=== PATIENT | female | born 1970 | race Caucasian/White ===

== ENCOUNTER → 2019-02-19 | Outpatient (CLI) | payer BC, SELFPAY ==
--- NOTE | 2019-02-16 | LES_PTH ---
PATIENT: SONDRA ELLIOTT LOC: [facility] U#:[id number] AGE/SX: 48/F ROOM: RE02/19/[address]: Dr. Rudy Mcmahan MD : 1970 BED: DIS: 02/19/2019 SPEC #: [id number] RECD: 02/19/19 12:11 STATUS: JHONY MARIBELL #: [id number] ISAK: 02/16/19 00:[address]: Rudy Mcmahan DEPT: SURGICAL PATHOLOGY RECD BY: Wallace Gipson ENTERED: 02/19/19 12:11 SP TYPE: Lesion OTHR DR: Dr. Dany Lane MD Tissues: Skin of upper extremity and shoulder Procedures: Surgery Specimen Level IV HEADER OPERATION: Excision skin lesion right posterior shoulder PRE-OP DIAGNOSIS: Neoplasm TISSUE SUBMITTED: Skin lesion right posterior shoulder MICROSCOPIC DIAGNOSIS Skin lesion of right posterior shoulder, biopsy: Verrucoid keratosis, inflamed. See comment. AM:jaycob 02/20/19 COMMENT The lesion is completely excised in the planes examined. Case has been reviewed in consultation with Dr. Rodriguez who concurs with the above diagnosis. IDC:POLLY MICROSCOPIC DESCRIPTION Slides are reviewed. GROSS DESCRIPTION Received in fixative is one container labeled with the patient's name and designated skin lesion right posterior shoulder. The specimen consists of a piece of garay-brown skin measuring 1.2 x 0.7 cm and up to 0.6 cm in thickness. The raised brown lesion is almost covering the whole skin surface. The specimen is inked, serially sectioned and submitted entirely in one cassette. / POLLY:jaycob 02/19/19 TC:5 CPT: 86446
== END | disposition home or self-care (01) ==
LOC: LABSPEC 10:21
PROVIDERS: Family Provider Family Medicine; PCP Family Medicine; Referring Provider Surgery; Visit Provider Surgery
DX: L82.0 Inflamed seborrheic keratosis (principal)
CPT/HCPCS: 88305

== ENCOUNTER 2022-08-02 10:33 | Day surgery (SDC) | payer BC, SELFPAY ==
[2022-08-02] MEDS: Lactated Ringers 1,000 ML 15 ML IV (10:55)
[2022-08-02 11:06] LABS: Internal QC Validated? YES +Cl - CLEAR BKGD; Pregnancy, Urine Negative Negative
[2022-08-02 11:08] VITALS: BP 146/94; PULSE 71; RESP 18; TEMP 36.3; O2SAT 100; BMI 23.0
--- NOTE | 2022-08-02 12:00 | COLBX_PTH ---
PATIENT: SONDRA ELLIOTT LOC: [facility] U#:[id number] AGE/SX: 52/F ROOM: RE08/02/[address]: Dr. Rudy Mcmahan MD : 1970 BED: DIS: 08/02/2022 SPEC #: [id number] RECD: 08/02/22 13:38 STATUS: JHONY RERei #: [id number] ISAK: 08/02/22 12:[address]: Rudy Mcmahan DEPT: SURGICAL PATHOLOGY RECD BY: Pamela Santana ENTERED: 08/02/22 13:59 SP TYPE: COLON BX OTHR DR: Dr. Dany Lane MD Tissues: Descending colon Procedures: Surgery Specimen Level IV HEADER OPERATION: Colonoscopy (MAC), biopsy PRE-OP DIAGNOSIS: Screening TISSUE SUBMITTED: Descending colon polyp biopsy MICROSCOPIC DIAGNOSIS Descending colon polyp, biopsy: Hyperplastic polyp. SJ:jaycob 08/03/2022 MICROSCOPIC DESCRIPTION Slides are reviewed. GROSS DESCRIPTION Received in fixative is one container labeled with the patient's name and designated descending polyp biopsy. The specimen consists of one irregular fragment of light garay soft tissue that measures 0.4 x 0.3 x 0.1 cm. The specimen is totally submitted in one cassette. / SJ:jaycob 08/02/2022 TC:1 CPT: 75334
--- NOTE | 2022-08-02 12:02 | HP.PCM_ITS ---
History and Physical Date of Admission: 08/02/22 HISTORY AND PHYSICAL ? Juliann C Jordy 1970 ? REFERRING PHYSICIAN: Dany Lane MD ? CHIEF COMPLAINT: Consult (Colonoscopy consult) ? HPI: The patient is a 51 year old female referred for endoscopy. Juliann notes no colon complaints. Patient denies any change in bowel habits, weight changes, blood in stools, black tarry stools or abdominal pain. Denies family history of colon issues. ? The patient notes no upper GI complaints. ? Juliann has not undergone prior endoscopy. ? Patient denies chest pain, shortness of breath or recent hospitalizations. Denies problems with sedation in the past. ? ? PAST MEDICAL HISTORY PAST MEDICAL HISTORY Diagnosis Date ? ASCUS with positive high risk HPV cervical 10/24/2020 ? cervical arthritis 2008 ? cervical disc/bulging/arthritis ? Cervicalgia 11/10/2007 ? COVID-19 virus infection 06/14/2020 ? 06/13/2020 ? Degeneration of cervical intervertebral disc 11/10/2007 ? Discotomy at C3-C4 ? Displacement 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 06/06/2008 ? Enlarged uterus 01/10/2014 ? 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 Uses Klonopin as needed. ? Heavy menstrual bleeding 01/10/2014 ? Irregular menstrual cycle 06/11/2005 ? PCB (post coital bleeding) 01/10/2014 ? ? PAST SURGICAL HISTORY PAST SURGICAL HISTORY Procedure Laterality Date ? PAST SURGICAL HISTORY OF ? 08/16/2008 ? removal of cervical disc with bone graft, C3-C4 ? STRESS TEST ? 08/01/2017 ? stress echo: WNL ? TONSILLECTOMY PRIMARY/SECONDARY <AGE 12 ? ? ? Tonsillectomy ? ? ? CURRENT MEDICATIONS Current Outpatient Medications Medication Sig ? fexofenadine HCl (SONIA ALLERGY ORAL) Take by mouth once daily. ? clonazePAM (KLONOPIN) 0.5 mg tablet Take 1 tablet by mouth twice daily as needed for anxiety. For flying. ? APPLE CIDER VINEGAR ORAL Take by mouth. ? MULTIVITAMIN ORAL Multivitamin preparation Multivitamin [Multivitamins] 1 TAB PO DAILY February 19, 2019 Active 02-19-2019 [facility] ([id number]) ? cholecalciferol, vitamin D3, (VITAMIN D3 ORAL) Take by mouth. (Patient not taking: Reported on 05/28/2022) ? loratadine (CLARITIN) 10 mg tablet Take 10 mg by mouth once daily. ? No current facility-administered medications for this visit. ? ? ALLERGIES: Patient has no known allergies. ? PERSONAL HISTORY: SOCIAL HISTORY Social History ? Tobacco Use ? Smoking status: Never ? Smokeless tobacco: Never Vaping Use ? Vaping Use: Never used Substance Use Topics ? Alcohol use: Yes ? ? Alcohol/week: 17.5 - 25.0 standard drinks ? ? Types: 7 - 10 Glasses of Wine (5oz) per week ? ? Comment: socially ? Drug use: No ? ? FAMILY HISTORY: FAMILY HISTORY FAMILY HISTORY Problem Relation Age of Onset ? None Mother ? ? Coronary Artery Disease Father 52 ? Hypertension Father ? ? Hypertension Brother ? ? Cerebral Embolism Maternal Grandmother ? ? Diabetes Maternal Grandfather ? ? Coronary Artery Disease Paternal Grandfather ? ? 40's ? Alzheimer's Disease No Family History ? ? Colon Cancer No Family History ? ? Prostate Cancer No Family History ? ? Breast Cancer No Family History ? ? Ovarian cancer No Family History ? ? Uterine Cancer No Family History ? ? Hyperlipidemia No Family History ? ? Kidney Disease No Family History ? ? Seizures No Family History ? ? Stroke No Family History ? ? Thyroid No Family History ? ? ? REVIEW OF SYMPTOMS: The review of systems data was entered by the nurse and reviewed by me ? Nursing Notes: Becca Bernal RN 05/28/2022 1:24 PM Signed REVIEW OF SYSTEMS: General: The patient denies fatigue, denies weight loss, denies weight gain, denies feeling hot, and denies feelings of cold. Eyes: The patient denies glaucoma, denies eye injury/surgery, does not wear glasses or contacts. Ear/Nose/Throat: The patient denies allergies, denies hayfever, denies ear infections, and denies bloody noses. Cardiovascular: The patient denies chest pain, denies heart disease, denies high blood pressure,denies cardiac stent, denies prior heart attack, denies irregular heart beat, denies high cholesterol, denies poor circulation, denies heart failure, other cardiac issues, denies claudication, denies cold feet, denies peripheral arterial stent. Respiratory: The patient denies tuberculosis, denies pneumonia, denies frequent cough, denies pulmonary embolism, denies shortness of breath, and denies coughing up blood. Gastrointestinal: The patient denies difficulty swallowing, denies acid reflux, denies ulcers, denies vomiting, denies jaundice/hepatitis, denies gallbladder problems, denies black or tarry stools, denies hemorrhoids, denies bleeding from rectum, denies diverticulitis, denies constipation, denies diarrhea, denies loss of stool control, and denies hernias. Kidney/Bladder: The patient denies kidney stones, denies urine infections, and denies bloody urine. Skin: The patient denies a history of skin cancer, denies b leeding/changing moles, and denies a history of skin rash. Neurologic: The patient denies a history of epilepsy/convulsions, denies headaches, denies head/spinal injuries, and denies stroke/TIA. Psychiatric: The patient denies psychiatric medications, denies depression, and denies voices, denies substance abuse. Endocrine: The patient denies thyroid disorders, denies diabetes, and denies hormonal problems. Hematologic: The patient denies a history of bruising, denies bleeding, and denies anemia, denies blood clots. Infections: The patient denies a history of measles and mumps, denies rheumatic fever, and denies sexually transmitted diseases. Musculoskeletal: The patient denies back pain/injury, denies back problems, denies sciatica, denies knee/foot trouble, NOTES arthritis, or denies gout. ? ? When was patient's last Mammogram screening? 11/20/2021 ? Last Colonoscopy: None ? Becca Bernal RN I have confirmed and edited as necessary, the PFSH and ROS obtained by others. Brunilda Morales PA-C ? PHYSICAL EXAMINATION: ? General: The patient is 51 year old female, well nourished, well hydrated in no acute distress. The patient is oriented to time, place, and person. ? VITALS: Blood pressure 124/80, pulse 100, temperature 36.2 ?C (97.2 ?F), height 160 cm (5' 3), weight 61.4 kg (135 lb 6.4 oz), last menstrual period 09/11/2020, SpO2 99 %. Body mass index is 23.99 kg/m?. ? HEENT: Normal cephalic, ataumatic, pupils are equally round, sclera are anicteric, mucous membranes are moist, oropharynx is clear. Neck has no masses, asymmetry or lymphadenopathy. ? Respiratory: Clear to auscultation and percussion. Normal respiratory excursion and pattern. ? Cardiac: Examination is regular rate and rhythm. Normal S1/S2 ? Abdominal exam: Soft, nontender, with no palpable masses. No hepatosplenomegaly. No palpable hernias. ? Extremities: no clubbing, cyanosis or edema. No adenopathy. ? LABORATORY VALUES: As Noted ? RADIOLOGIC STUDIES: As Noted ? ? Assessment IMPRESSION: encounter for screening colonoscopy ? PLAN: I have reviewed my findings with the surgeon. Will plan for lower endoscopy. We discussed the risks and benefits of the planned endoscopy. I have informed the patient that complications can occur including failure to complete the endoscopy and perforation. The patient had the opportunity to ask questions concerning the planned endoscopy. My staff has also explained the procedure to the patient in understandable terms and has given the patient printed material concerning the procedure. The patient freely consents to surgery. ? The patient was offered a surgery/procedure at a [facility]. I have counseled the patient regarding the risk of exposure to and/or potential harm posed by the COVID-19 virus with having a surgery/procedure at this time versus the risk of? delaying the surgery/procedure. It is not possible to know either the risk of delaying the surgery or procedure or chance of getting an infection with perfect accuracy, but a joint decision was made between the patient and myself?to proceed at this time with endoscopy. ? ? I plan to use Golytely bowel preparation ? We will plan for Monitored Anesthetic Care. ? ? ? Diagnoses: (Z12.11) Encounter for screening for malignant neoplasm of colon (primary encounter diagnosis) ? Consultation requested by Dr. Lane for an opinion regarding screening colonoscopy. My final recommendations will be communicated back to the requesting physician by way of shared Medical record or letter to requesting physician via US mail. ? Brunilda Morales PA-C I have examined the patient and the H&P has been reviewed. There are no clinical changes since date of exam.
--- NOTE | 2022-08-02 12:30 | OP.CCLET_ITS ---
08/02/[address] MD Re : Colonoscopy procedure for Juliann Spence Dear Dr. Lane This procedure was performed on Tuesday, August 02, 2022. My impressions and recommendations are as follows: Impressions : - Preparation of the colon was fair. - One small polyp in the descending colon, removed with a jumbo cold forceps. Resected and retrieved. - The examination was otherwise normal on direct and retroflexion views. Recommendations : - Patient has a contact number available for emergencies. The signs and symptoms of potential delayed complications were discussed with the patient. Return to normal activities tomorrow. Written discharge instructions were provided to the patient. - Resume previous diet. - Continue present medications. - Await pathology results. - Repeat colonoscopy in 5 years for surveillance. This is secondary to the polyp as well as the poor bowel prep. - Return to physician retail event and sales assistant in 1 week. My findings are described in the full procedure note, which is enclosed. If I can be of further assistance, please feel free to contact me at Doctor phone number(s): , Work: . Sincerely, MD Rudy Lima MD 08/02/2022 12:30:04 PM This report has been signed electronically.
--- NOTE | 2022-08-02 12:30 | OP.COLON_ITS ---
Patient Name: Juliann Spence Procedure Date: 08/02/2022 12:02 PM Date of : 1970 Age: 52 Procedure: Colonoscopy Indications: Screening for colorectal malignant neoplasm Providers: Rudy Mcmahan MD Medicines: See the Anesthesia note for documentation of the administered medications Patient Profile: This is a 52 year old female. Refer to note in patient chart for documentation of history and physical. Last Colonoscopy: none. The patient's first colonoscopy is today. Complications: No immediate complications. Estimated blood loss: Minimal. Procedure: Pre-Anesthesia Assessment: - Prior to the procedure, a History and Physical was performed, and patient medications and allergies were reviewed. The patient's tolerance of previous anesthesia was also reviewed. The risks and benefits of the procedure and the sedation options and risks were discussed with the patient. All questions were answered, and informed consent was obtained. Prior Anticoagulants: The patient has taken no previous anticoagulant or antiplatelet agents. ASA Grade Assessment: II - A patient with mild systemic disease. After reviewing the risks and benefits, the patient was deemed in satisfactory condition to undergo the procedure. After I obtained informed consent, the scope was passed under direct vision. Throughout the procedure, the patient's blood pressure, pulse, and oxygen saturations were monitored continuously. The pediatric colonoscope was introduced through the anus and advanced to the cecum, identified by appendiceal orifice and ileocecal valve. The colonoscopy was performed without difficulty. The patient tolerated the procedure well. The quality of the bowel preparation was fair. Scope In: 12:12:01 PM Scope Withdrawal Time 0 hours 9 minutes 51 seconds Scope Out: 12:25:36 PM Total Procedure Duration Time 0 hours 13 minutes 35 seconds Findings: The perianal and digital rectal examinations were normal. A small polyp was found in the descending colon. The polyp was sessile. The polyp was removed with a jumbo cold forceps. Resection and retrieval were complete. The exam was otherwise without abnormality on direct and retroflexion views. Impression: - Preparation of the colon was fair. - One small polyp in the descending colon, removed with a jumbo cold forceps. Resected and retrieved. - The examination was otherwise normal on direct and retroflexion views. Recommendation: - Patient has a contact number available for emergencies. The signs and symptoms of potential delayed complications were discussed with the patient. Return to normal activities tomorrow. Written discharge instructions were provided to the patient. - Resume previous diet. - Continue present medications. - Await pathology results. - Repeat colonoscopy in 5 years for surveillance. This is secondary to the polyp as well as the poor bowel prep. - Return to physician communications assistant in 1 week. Procedure Code(s): --- Professional --- 21492, Colonoscopy, flexible; with biopsy, single or multiple Diagnosis Code(s): --- Professional --- Z12.11, Encounter for screening for malignant neoplasm of colon D12.4, Benign neoplasm of descending colon CPT copyright 2017 [employer]. All rights reserved. The codes documented in this report are preliminary and upon mill stenciler review may be revised to meet current compliance requirements. MD Rudy Lima MD 08/02/2022 12:30:04 PM This report has been signed electronically. Number of Addenda: 0 Note Initiated On: 08/02/2022 12:02 PM
[2022-08-02 12:33] VITALS: BP 105/75; BP 146/94; PULSE 67; RESP 14; TEMP 37.1; O2SAT 97
[2022-08-02 12:35] VITALS: BP 104/78; BP 146/94; PULSE 64; RESP 14; O2SAT 95
[2022-08-02 12:40] VITALS: BP 111/75; BP 146/94; PULSE 62; RESP 14; TEMP 36.9; O2SAT 96
[2022-08-02 12:58] VITALS: BP 146/94
== END 2022-08-02 13:30 | disposition home or self-care (01) ==
LOC: EN 10:36 → AC 10:39
PROVIDERS: Anesthesiology; PCP Family Medicine; Referring Provider Surgery; Visit Provider Surgery
PROC: 0DJD8ZZ Inspection of Lower Intestinal Tract, Via Natural or Artificial Opening Endoscopic (ICD-10-PCS; CPT 45378; principal; 2022-08-02 11:55)
DX: Z12.11 Encounter for screening for malignant neoplasm of colon (principal); Z86.16 Personal history of COVID-19; Z80.3 Family history of malignant neoplasm of breast; Z80.42 Family history of malignant neoplasm of prostate; Z80.0 Family history of malignant neoplasm of digestive organs; D12.4 Benign neoplasm of descending colon
CPT/HCPCS: 45380; 81025; 88305; J7120; J2405

== ENCOUNTER 2025-03-01 07:37 | Outpatient (CLI) | payer BC, SELFPAY ==
--- NOTE | 2025-03-01 07:39 | CT_ITS ---
PROCEDURE: LIMITED CHEST CT CARDIAC ONLY 03/01/2025 REASON FOR EXAM: CAD SCREENING Family history of coronary artery disease. Elevated cholesterol. TECHNIQUE: LIMITED CHEST CT CARDIAC ONLY CONTRAST: None One or more dose reduction techniques were used (e.g., Automated exposure control, adjustment of the mA and/or kV according to patient size, use of iterative reconstruction technique). RADIATION DOSE SUMMARY: CTDlvol: 12.19 mGy DLP: 219.42 mGycm COMPARISON: None FINDINGS: Mild degree of atherosclerotic plaque formation of the aortic arch. Small benign-appearing mediastinal lymph nodes. The heart is nonenlarged. No significant coronary artery calcification is seen. The lungs are clear. CT/Limited Chest CT Cardiac Only IMPRESSION: No significant coronary artery calcification is seen. Reading Location: [place] [id number]
--- OUTSIDE RECORDS SUMMARY | 2025-03-01 07:41 | XMS RPT_ITS | CCD ---
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 Role Phone Dany Berman MD Primary Care Provider [phone] Unavailable Primary Care Provider Unavaillewis amor Unavailable Primary Care Provider UnavailDany Pierre MD Primary Care Provider Beatrice Wright APRN.CNP Unavailable Teri Newman PA-C Unavailable Dany Berman Primary Care Unavailable Teri Morrison Referring Unavailable Teri Morrison Attending Unavailable DANY BERMAN Referring Unavailable DANY BERMAN Primary Care Unavailable DANY BERMAN Primary Care Unavailable TERI NEWMAN Referring Unavailable DANY BERMAN Attending Unavailable DANY BERMAN Primary Care Unavailable TERI NEWMAN Attending Unavailable DANY BERMAN Primary Care Unavailable TERI NEWMAN Attending Unavailable DANY BERMAN Primary Care Unavailable Medications Current Medications Medication Drug Class(es) Dates Sig (Normalized) Sig (Original) amoxicillin 875 mg / clavulanate 125 mg oral tablet (1 source) Penicillin-class Antibacterial Start: 10-08-2024 End: 10-13-2024 take 1 tablet by mouth twice daily amoxicillin-clav ulanate potassium (AUGMENTIN) 875-125 mg per tablet Take 1 tablet by mouth two times a day for 5 days. Patient should start on October 08, 2024. 10 tablet 10/08/2024 10/13/2024 Active apple cider vinegar 600 mg oral capsule (20 sources) Start: 07-28-2022 take 600 mg by mouth once daily Apple Cider Vinegar Active 600 MG PO DAILY July 28, 2022 12:00am APPLE CIDER VINE GAR ORAL Take by mouth. Active APPLE CIDER VINE GAR ORAL Take by mouth. 0 Active Comment on above: Take by mouth. cholecalciferol 0.025 mg oral capsule (6 sources) Vitamin D Start: take 2 capsules by mouth once daily Cholecalciferol, Vitamin D3, (VITAMIN D) 25 mcg (1,000 unit) cap Take 2 capsules by mouth once daily. 12/17/2024 Active clonazePAM 0.5 mg oral tablet (20 sources) Benzodiazepine Start: 021 End: take 1 tablet by mouth every twelve hours as needed for anxiety and anxiety clonazePAM (KLONOPIN) 0.5 mg tablet Indications: Anxiety Take 1 tablet by mouth two times a day as needed for anxiety. For flying. 4 tablet 01/10/2024 06/22/2025 Active Comment on above: Take 1 tablet by elysia th twice daily as needed for Anxiety. For flying. Take 1 tablet by elysia th two times a day as needed for anxiety. For flying. dextromethorphan hydrobromide 2 mg/ml / guaiFENesin 40 mg/ml oral suspension (3 sources) Uncompetitive T-fruude-C-aspartate Receptor Antagonist, Sigma-1 Agonist Start: 020 End: 022 take 5 mL by mouth every four hours as needed Dextromethorphan-gu aiFENesin (ROBITUSSIN DM) 10-200 mg/5 mL liqd Take 5 mL by mouth every 4 hours as needed. 120 mL 0 06/13/2020 12/11/2021 Discontinued Comment on above: Take 5 mL by mouth e very 4 hours as needed. fexofenadine (19 sources) Histamine-1 Receptor Antagonist fexofenadine HCl (SONIA ALLERGY ORAL) Take by mouth once daily. Active fexofenadine HCl (SONIA ALLERGY ORAL) Take by mouth once daily. 0 Active Comment on above: Take by mouth once d aily. fluticasone propionate 0.05 mg/actuat metered dose nasal spray (3 sources) Corticosteroid Start : 06-13 End: 12-11 take 2 spray(s) by mouth once daily fluticasone (FLONASE) 50 mcg/actuation nasal spray Use 2 Sprays in each nostril once daily. Rinse mouth after use. 1 Bottle 0 06/13/2020 12/11/2021 Discontinued Comment on above: Use 2 Sprays in each nostril once daily. Rinse mouth after use. loratadine 10 mg oral tablet (20 sources) Start : 07-28 take 1 tablet by mouth once daily Loratadine (Claritin) 10 mg Tablet Active 10 MG PO DAILY July 28, 2022 12:00am Comment on above: Take 10 mg by mouth once daily. losartan potassium 25 mg oral tablet (6 sources) Angiotensin 2 Receptor Shawn Start : 01-08 End: 02-05 take 1 tablet by mouth once daily losartan (COZAAR) 25 mg tablet Take 1 tablet by mouth once daily. 90 tablet 3 02/05/2025 Active medroxyPROGESTERone acetate 10 mg oral tablet (3 sources) Progestin Start : 12-25 End: 12-11 take 1 tablet by mouth once daily medroxyPROGESTERone (PROVERA) 10 mg tablet Take 1 tablet by mouth once daily. 10 tablet 1 12/26/2019 12/11/2021 Discontinued Comment on above: Take 1 tablet by elysia th once daily. Multivitamin (Multiple Vitamins) tablet (2 sources) Start : 02-19 take 1 tablet by mouth once daily Multivitamin (Multiple Vitamins) tablet Active 1 TABLET PO DAILY February 18, 2019 11:00pm MULTIVITAMIN ORAL (20 sources) Start : 02-19 MULTIVITAMIN ORAL Multivitamin preparation Multivitamin [Multivitamins] 1 TAB PO DAILY February 19, 2019 Active 02-19-2019 [facility] ([id number]) 02/19/2019 Active Start: 02-19-2019 MULTIVITAMIN O RAL Multivitamin preparation Multivitamin [Multivitamins] 1 TAB PO DAILY February 19, 2019 Active 02-19-2019 [facility] ([id number]) 0 02/19/2019 Active Comment on above: Multivitamin prepara tion Multivitamin [Multivitamins] 1 TAB PO DAILY February 19, 2019 Active 02-19-2019 [facility] ([id number]) tranexamic acid 650 mg oral tablet (2 sources) Antifibrinolytic Agent Start: 020 End: take 2 tablets by mouth every eight hours as needed tranexamic acid (LYSTEDA) 650 mg tablet Take 2 tablets by mouth three times daily as needed (heavy menstrual bleeding) for up to 5 days. 30 tablet 1 10/16/2019 12/11/2021 Discontinued Comment on above: Take 2 tablets by mo uth three times daily as needed (heavy menstrual bleeding) for up to 5 days. traZODone hydrochloride 50 mg oral tablet (3 sources) Serotonin Reuptake Inhibitor Start: 019 End: take 1 tablet by mouth once daily at bedtime traZODone (DESYREL) 50 mg tablet Take 1 tablet by mouth daily at bedtime. 30 tablet 2 06/21/2019 12/11/2021 Discontinued Comment on above: Take 1 tablet by elysia th daily at bedtime. valACYclovir 1000 mg oral tablet (2 sources) Herpesvirus Nucleoside Analog DNA Polymerase Inhibitor, Herpes Simplex Virus Nucleoside Analog DNA Polymerase Inhibitor, Herpes Zoster Virus Nucleoside Analog DNA Polymerase Inhibitor Start: 025 End: 025 take 1 tablet by mouth once daily valACYclovir (VALTREX) 1 gram tablet Indications: Herpes simplex vulvovaginitis Take 1 tablet by mouth once daily for 5 days. 10 tablet 2 07/23/2024 07/28/2024 Active Start: 07-27-2022 End: 08-01-2022 take 1 tablet by mouth once daily valACYclovir (VALTREX) 1 gram Indications: Herpes simplex vulvovaginitis Take 1 tablet by mouth once daily for 5 days. 10 tablet 2 07/27/2022 08/01/2022 Active Comment on above: Take 1 tablet by elysia th once daily for 5 days. Completed/Discontinued Medications Medication Drug Class(es) Dates Sig (Normalized) Sig (Original) cholecalciferol, vitamin D3, (VITAMIN D3 ORAL) (19 sources) End: 12-17-2024 cholecalciferol, vitamin D3, (VITAMIN D3 ORAL) Take by mouth. 12/17/2024 Discontinued (Changing Therapy/Dosage Form) cholecalciferol, vitamin D3, (VITAMIN D3 ORAL) Take by mouth. Active cholecalciferol, vitamin D3, (VITAMIN D3 ORAL) Take by mouth. 0 Active Comment on above: Take by mouth. Problems Active Problems Problem Classification Problem Date Documented Date Episodic/Chronic Anxiety disorders (20 sources) Fear of flying; Translations: [Fear of flying] Onset: 04-05-2017 04-05-2017 Chronic Cardiac dysrhythmias (2 sources) Sinus bradycardia; Translations: [Bradycardia, unspecified] 2018 Episodic Disorders of lipid metabolism (1 source) Mixed hyperlipidemia; Translations: [Mixed hyperlipidemia] 02-07-2025 Chronic Essential hypertension (9 sources) Essential hypertension; Translations: [Essential (primary) hypertension] Onset: 01-08-2025 01-08-2025 Chronic Immunizations and screening for infectious disease (2 sources) Vaccination needed; Translations: [Encounter for immunization] Onset: 12-17-2024 12-17-2024 Episodic Menstrual disorders (20 sources) Irregular periods; Translations: [Irregular menstruation, unspecified] Onset: 06-11-2005 04-05-2017 Chronic Nonmalignant breast conditions (1 source) Breast finding ; Translations: [Dense breast tissue] 12-23-2023 Episodic Other circulatory disease (2 sources) Elevated blood-pressure reading without diagnosis of hypertension; Translations: [Elevated blood-pressure reading, without diagnosis of hypertension] 10-06-2024 Episodic Other circulatory disease (1 source) Elevated blood-pressure reading, without diagnosis of hypertension; Translations: [Elevated BP without diagnosis of hypertension] Onset: 12-17-2024 Episodic Other female genital disorders (20 sources) Postcoital bleeding; Translations: [Postcoital and contact bleeding] Onset: 01-10-2014 04-05-2017 Chronic Other screening for suspected conditions (not mental disorders or infectious disease) (20 sources) Patient encounter status; Translations: [Encounter for screening mammogram for malignant neoplasm of breast] Onset: 04-05-2017 Episodic Other upper respiratory disease (1 source) Congestion of nasal sinus; Translations: [Nasal congestion] 10-06-2024 Episodic Other upper respiratory infections (1 source) Acute upper respiratory infection; Translations: [Acute upper respiratory infection, unspecified] 10-06-2024 Episodic Residual codes; unclassified (2 sources) H/O Spinal surgery; Translations: [Other specified postprocedural states] 07-28-2022 Episodic Residual codes; unclassified (1 source) Family history of ischemic heart disease; Translations: [Family history of ischemic heart disease and other diseases of the circulatory system] 02-05-2025 Episodic Residual codes; unclassified (1 source) Family history of ischemic heart disease and other diseases of the circulatory system; Translations: [Family history of ischemic heart disease] Onset: 02-05-2025 Episodic Screening and history of mental health and substance abuse codes (2 sources) Encounter for screening for depression; Translations: [Encounter for screening examination for other mental health and behavioral disorders] Onset: 12-17-2024 Episodic Spondylosis; intervertebral disc disorders; other back problems (20 sources) Degeneration of cervical intervertebral disc; Translations: [Other cervical disc degeneration, unspecified cervical region] Onset: 11-10-2007 04-05-2017 Chronic Viral infection (2 sources) Herpetic vulvovaginitis; 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] Chronic Past or Other Problems Problem Classification Problem Date Documented Da te Episodic/Chronic Acute bronchitis (20 sources) Acute bronchitis; Translations: [Acute bronchitis, unspecified] Onset: 01-24-2006 Resolved: 12-17-2024 01-24-2006 Episodic Other complications of (13 sources) Multigravida of advanced maternal age; Translations: [Supervision of elderly multigravida, unspecified trimester] Onset: 11-09-2005 Resolved: 06-05-2012 06-05-2012 Episodic Other female genital disorders (20 sources) Enlarged uterus; Translations: [Hypertrophy of uterus] Onset: 01-10-2014 04-05-2017 Episodic Other infections; including parasitic (6 sources) Personal history of other infectious and parasitic diseases; Translations: [History of COVID-19] Onset: 06-14-2020 Resolved: 12-17-2024 12-17-2024 Episodic Other and delivery including normal (13 sources) Normal ; Translations: [Encounter for supervision of other normal , unspecified trimester] Onset: 09-09-2005 Resolved: 06-05-2012 06-05-2012 Episodic Residual codes; unclassified (20 sources) FH: premature coronary heart disease; Translations: [Family history of ischemic heart disease and other diseases of the circulatory system] Onset: 04-05-2017 04-05-2017 Episodic Spondylosis; intervertebral disc disorders; other back problems (20 sources) Neck pain; Translations: [Cervicalgia] Onset: 11-10-2007 04-05-2017 Episodic Unclassified (1 source) Patient encounter status 02-13-2025 Viral infection (18 sources) Disease caused by 2019-nCoV; Translations: [COVID-19] Onset: 06-14-2020 06-14-2020 Episodic Results Test Name Value Interpretation Reference [facility] JULIANN ELLIOTT ([id number]) 1970 F Date Time Provider Department 02/26/25 DANY BERMAN [facility] During your visit today, we recorded the following information about you: Ernesto Munoz RN 02/26/2025 9:32 AM Signed Natali with [facility] calls to ask if pre certification has been submitted for the Calcium Scoring Test. Order is listed as self-pay. Notified Natali. Patient will have a cost of $50. Call placed to patient to notify and patient agreeable to the cost. Natali to note chart. Ernesto Munoz RN Allergies As of Date: 02/26/2025 (No Known Allergies) Date Reviewed: 02/05/2025 Reviewed by: Ailyn Machuca, AURA - Fully Assessed Reason for Visit: Orders [681] Prescriptions as of 02/26/2025 - losartan (COZAAR) 25 mg tablet Take 1 tablet by mouth once daily. - Cholecalciferol, Vitamin D3, (VITAMIN D) 25 mcg (1,000 unit) cap Take 2 capsules by mouth once daily. - clonazePAM (KLONOPIN) 0.5 mg tablet Take 1 tablet by mouth two times a day as needed for anxiety. For flying. - fexofenadine HCl (SONIA ALLERGY ORAL) Take by mouth once daily. - APPLE CIDER VINEGAR ORAL Take by mouth. - loratadine (CLARITIN) 10 mg tablet Take 10 mg by mouth once daily. - MULTIVITAMIN ORAL Multivitamin preparation Multivitamin [Multivitamins] 1 TAB PO DAILY February 19, 2019 Active 02-19-2019 [facility] ([id number]) Meds Comments as of 06/27/2009: All medications reviewed today/June 27, 2009 Letty Shultz Rn Problem List As Of Date 02/26/2025 Noted Resolved Routine gynecological examination [Z01.419] 06/11/2005 06/05/2012 Irregular menstrual cycle [N92.6] 06/11/2005 Supervision of other normal [Z34.80] 09/09/2005 06/05/2012 Elderly multigravida with antepartum condition *11/09/2005 06/05/2012 Acute bronchitis [J20.9] 01/24/2006 12/17/2024 Cervicalgia [M54.2] 11/10/2007 Degeneration of cervical intervertebral disc [M*11/10/2007 Displacement of cervical intervertebral disc wi*06/06/2008 Heavy menstrual bleeding [N92.0] 01/10/2014 PCB (post coital bleeding) [N93.0] 01/10/2014 Enlarged uterus [N85.2] 01/10/2014 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] 04/05/2017 Encounter for gynecological examination without*04/05/2017 Well adult exam [Z00.00] 04/05/2017 Family history of early CAD [Z82.49] 04/05/2017 Encounter for screening for diabetes mellitus [*04/05/2017 History of COVID-19 [Z86.16] 06/14/2020 12/17/2024 Encounter for lipid screening for cardiovascula* 025 Hypertension, essential [I10] 01/08/2025 Encounter Status:Closed by ERNESTO MUNOZ on 02/26/25 Normal [facility] DIEGO SCREENING W TOMOon 02-18 DIEGO SCREENING W RANDY * * *Final Report* * * DATE OF EXAM: Feb 18 2025 3:23PM WR [id number] - DIEGO SCREENING W RANDY / PROCEDURE REASON: Screening mammogram for breast cancer * * * * Physician Interpretation * * * * RESULT: [place] [id number] #[id number] - DIEGO SCREENING W RANDY HISTORY: 54 year-old patient presents for screening. Patient is asymptomatic in both breasts. Patient states no personal history of breast cancer. COMPARISON STUDIES: The present examination has been compared to prior imaging studies dated 06/06/2019 (mammogram), 06/26/2020 (mammogram), 11/20/2021 (mammogram), 01/10/2023 (mammogram) and 01/31/2024 (mammogram). MAMMOGRAM TECHNIQUE: The study was acquired using full field digital technology and interpreted from soft copy. Digital Breast Tomosynthesis (DBT) images were obtained and used to assist in the interpretation of this examination. MAMMOGRAM FINDINGS: There are scattered areas of fibroglandular density. No suspicious masses, calcifications or other abnormalities are seen in either breast. There are no significant interval changes. IMPRESSION: There is no mammographic evidence of malignancy in either breast. Routine screening mammogram is recommended. Annual mammogram will be due in 1 year. BI-RADS Category 1: Negative RISK: Based on the Tyrer-Cuzick (TC) risk assessment model, this patient has a 4.7% lifetime risk of developing breast cancer, meaning they are at average risk for developing breast cancer. However, this is only an estimate based on available history provided on the patient's questionnaire. We encourage all patients to talk with their providers about these results, further recommendations for managing breast health, and appropriate supplemental screening options if the patient has dense breast tissue. Interpreting Radiologist: Bambi Gutierrez M.D. Electronically signed on: 02/19/2025 Clinical Trials Systems Administrator: WARNER Transcribe Date/Time: Feb 18 2025 2:57P Dictated by: BAMBI GUTIERREZ MD This examination was interpreted and the report reviewed and electronically signed by: BAMBI GUTIERREZ MD on Feb 19 2025 8:33AM EST [id number] Normal [facility] CNPCande 02-12-2025 CNPN Telephone (4CQ) JULIANN ELLIOTT ([id number]) 1970 F Date Time Provider Department 02/12/25 DANY BERMAN 4CQ During your visit today, we recorded the following information about you: Yolanda Lylen 02/12/2025 4:32 PM Signed Needs mammo order Ailyn Machuca LPN 02/13/2025 9:17 AM Signed Per below pt is needing mammogram order. Order pended please review. AURA Croft Rayanne, PA-C 02/13/2025 12:28 PM Signed Order placed. Allergies As of Date: 02/12/2025 (No Known Allergies) Date Reviewed: 02/05/2025 Reviewed by: Ailyn Machuca LPN - Fully Assessed Reason for Visit: Orders [681] Primary Visit Diagnosis:Screening mammogram for breast cancer [Z12.31] Order(s):DIEGO SCREENING W RANDY [[id number]] Order #: [id number] FUTURE Prescriptions as of 02/13/2025 - losartan (COZAAR) 25 mg tablet Take 1 tablet by mouth once daily. - Cholecalciferol, Vitamin D3, (VITAMIN D) 25 mcg (1,000 unit) cap Take 2 capsules by mouth once daily. - clonazePAM (KLONOPIN) 0.5 mg tablet Take 1 tablet by mouth two times a day as needed for anxiety. For flying. - fexofenadine HCl (SONIA ALLERGY ORAL) Take by mouth once daily. - APPLE CIDER VINEGAR ORAL Take by mouth. - loratadine (CLARITIN) 10 mg tablet Take 10 mg by mouth once daily. - MULTIVITAMIN ORAL Multivitamin preparation Multivitamin [Multivitamins] 1 TAB PO DAILY February 19, 2019 Active 02-19-2019 [facility] ([id number]) Meds Comments as of 06/27/2009: All medications reviewed today/June 27, 2009 Letty Shultz Rn Problem List As Of Date 02/12/2025 Noted Resolved Routine gynecological examination [Z01.419] 06/11/2005 06/05/2012 Irregular menstrual cycle [N92.6] 06/11/2005 Supervision of other normal [Z34.80] 09/09/2005 06/05/2012 Elderly multigravida with antepartum condition *11/09/2005 06/05/2012 Acute bronchitis [J20.9] 01/24/2006 12/17/2024 Cervicalgia [M54.2] 11/10/2007 Degeneration of cervical intervertebral disc [M*11/10/2007 Displacement of cervical intervertebral disc wi*06/06/2008 Heavy menstrual bleeding [N92.0] 01/10/2014 PCB (post coital bleeding) [N93.0] 01/10/2014 Enlarged uterus [N85.2] 01/10/2014 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] 04/05/2017 Encounter for gynecological examination without*04/05/2017 Well adult exam [Z00.00] 04/05/2017 Family history of early CAD [Z82.49] 04/05/2017 Encounter for screening for diabetes mellitus [*04/05/2017 History of COVID-19 [Z86.16] 06/14/2020 12/17/2024 Encounter for lipid screening for cardiovascula* 025 Hypertension, essential [I10] 01/08/2025 Encounter Status:Closed by TERI CANTRELL on 02/13/25 [facility] CNOVon 02-05-2025 CNOV Office Visit (FAMPWS ) JULIANN ELLIOTT ([id number]) 1970 F Date Time Provider Department 02/05/25 7:40 AM TERI NEWMAN FAMPWS During your visit today, we recorded the following information about you: Temperature Pulse Respiration Blood pressure 97.8 degrees 68/minute 16/minute 127/78 Weight 64 kg Teri Newman PA-C 02/05/2025 8:17 AM Signed Chief Complaint Patient presents with: Follow Up: Blood pressure HPI Juliann Elliott is a 54 year old female who presents here today for recheck. Hypertension: - Home blood pressure readings show variability, with higher readings in the morning (e.g., 146/xx mmHg) and lower readings in the afternoon (e.g., 120/83 mmHg). - Attributes higher morning readings to stress from a long drive to work. - Currently taking losartan; reports good tolerance without adverse effects. - Recently received a notice to refill losartan prescription. Hyperlipidemia: - Scheduled for a lipid panel as ordered by Dr. Berman. - Inquires about the potential need for medication if cholesterol levels are elevated. - Family history of heart disease; father of a heart attack at age 52. - Brother, a GP in [place], recommended a heart scan (calcium score) to assess for plaque buildup. Past medical history, appointments, medications, allergies reviewed. 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 Heavy menstrual bleeding 01/10/2014 History of COVID-19 06/14/2020 06/13/2020 Irregular menstrual cycle 06/11/2005 PCB (post coital bleeding) 01/10/2014 Previous Surgical History PAST SURGICAL HISTORY Procedure Laterality Date PAST SURGICAL HISTORY OF 08/16/2008 removal of cervical disc with bone graft, C3-C4 STRESS TEST 08/01/2017 stress echo: WNL TONSILLECTOMY PRIMARY/SECONDARY Tonsillectomy Family History FAMILY HISTORY Problem Relation Age of Onset None Mother other (pulmonary embolism) Mother Coronary Artery Disease Father 52 Hypertension Father Hypertension Brother Cerebral Embolism Maternal Grandmother Diabetes Maternal Grandfather Coronary Artery Disease Paternal Grandfather 40's Alzheimer's Disease No Family History Colon Cancer No Family History Prostate Cancer No Family History Breast Cancer No Family History Ovarian cancer No Family History Uterine Cancer No Family History Hyperlipidemia No Family History Kidney Disease No Family History Seizures No Family History Stroke No Family History Thyroid No Family History Patient Allergies ALLERGIES No Known Allergies Current Medications Current Outpatient Medications on File Prior to Visit Medication Sig losartan (COZAAR) 25 mg tablet Take 1 tablet by mouth once daily. Cholecalciferol, Vitamin D3, (VITAMIN D) 25 mcg (1,000 unit) cap Take 2 capsules by mouth once daily. clonazePAM (KLONOPIN) 0.5 mg tablet Take 1 tablet by mouth two times a day as needed for anxiety. For flying. fexofenadine HCl (SONIA ALLERGY ORAL) Take by mouth once daily. APPLE CIDER VINEGAR ORAL Take by mouth. loratadine (CLARITIN) 10 mg tablet Take 10 mg by mouth once daily. MULTIVITAMIN ORAL Multivitamin preparation Multivitamin [Multivitamins] 1 TAB PO DAILY February 19, 2019 Active 02-19-2019 [facility] ([id number]) No current facility-administered medications on file prior to visit. Social History Social History Tobacco Use Smoking status: Never Passive exposure: Never Smokeless tobacco: Never Vaping Use Vaping status: Never Used Substance Use Topics Alcohol use: Yes Alcohol/week: 7.0 - 10.0 standard drinks of alcohol Types: 7 - 10 Glasses of Wine (5oz) per week Comment: socially Drug use: No Review of Symptoms REVIEW OF SYSTEMS SEE HPI EXAM: BP 127/78 (BP Site: Left Arm, BP Position: Sitting, BP Cuff Size: Regular Adult) Pulse 68 Temp 36.6 ?C (97.8 ?F) Resp 16 Wt 64 kg (141 lb) LMP 09/11/2020 (LMP Unknown) SpO2 99% BMI 24.98 kg/m? General Appearance: Well appearing, alert, in no acute distress, well-hydrated, well nourished.. Health Maintenance List Shingrix Vaccine(1 of 2) Never done Diabetes Screening due on 04/20/2022 Lipid Screening due on 04/20/2024 Mammogram Screening due on 01/30/2025 Influenza Vaccine(1) due on 03/18/2025 Depression Screening due on 12/17/2025 Anxiety Screening due on 12/17/2025 Annual P (more content not included)... Normal [facility] HbA1c (Bld)on 02-05-2025 Average glucose Estimated from glycated hemoglobin (Bld) [Mass/Vol] 105 mg/dL Normal [facility] Comment on above: Order Comment: Speci men Type: BLOOD SPECIMENOrdering Facility: [facility] Address: [address] [place] [address] [place] [address] Result Comment: eAG: (Estimated average glucose) is a calculated value from HgbA1c and is employee's representative of the average blood glucose level in the last 2-3 month period. Performed By: #### 5 5454-3 ####[facility] LABCL[facility] [id number] [place] [address] [place] HbA1c (Bld) [Mass fraction] 5.3 % Normal 4.3-5.6 [facility] Comment on above: Order Comment: Ramírez ruffin Type: BLOOD SPECIMENOrdering Facility: [facility] Address: [address] [place] [address] Result Comment: Amer ican Diabetes Association guidelines indicate that patients with HgbA1c in the range 5.7-6.4% are at increased risk for development of diabetes, and intervention by lifestyle modification may be beneficial. HgbA1c greater or equal to 6.5% is considered diagnostic of diabetes. Performed By: #### 5 5454-3 ####[facility] [id number] [address] OF [place] LIPID PANEL, NONFASTINGon Cholesterol [Mass/Vol] 276 mg/dL High <200 [facility] Comment on above: Order Comment: Ramírez ruffin Type: BLOOD SPECIMENOrdering Facility: [facility] Address: [address] [place] [address] Result Comment: <200 mg/dL, Desirable 200-239 mg/dL, Borderline high >239 mg/dL, High Performed By: #### L IPNF ####[facility] [id number] [address] OF [facility] HDL CHOLESTEROL, NF 84 mg/dL Normal >39 [facility] Comment on above: Order Comment: Ramírez ruffin Type: BLOOD SPECIMENOrdering Facility: [facility] Address: [address] [place] [address] Result Comment: 40-5 9 mg/dL, Acceptable >59 mg/dL, High: Negative risk factor for coronary heart disease <40 mg/dL, Low: Positive risk factor for coronary heart disease Performed By: #### L IPNF ####[facility] [id number] [address] [place] LDL CHOLESTEROL CALCULATED, NF 179 mg/dL High <100 [facility] Comment on above: Order Comment: Ramírez ruffin Type: BLOOD SPECIMENOrdering Facility: [facility] Address: [address] [place] [address] Result Comment: <100 mg/dL, Optimal 100-129 mg/dL, Near optimal/above optimal 130-159 mg/dL, Borderline high 160-189 mg/dL, High >189 mg/dL, Very high Secondary prevention optimal LDL Cholesterol levels are recommended to be <70 mg/dL LDL cholesterol is calculated using the Mulligan-NIH equation. Performed By: #### L IPNF ####[facility] LABIA [id number] [address] OF [facility] LDL/HDL RATIO, NF 2.13 mg/dL Normal <2.54 [facility] Comment on above: Order Comment: Speci men Type: BLOOD SPECIMENOrdering Facility: [facility] Address: [address] [place] [address] Result Comment: Refe eli: 1. National Cholesterol Education Program ATP III Guideline At-A-Glance Quick Desk Reference: National Heart, Lung, and Blood [place]. National Institutes of Health. 2001: NIH Publication No. 01-3305. 2. An International Atherosclerosis Society position paper: global recommendations for the management of dyslipidemia: executive summary, Atherosclerosis. 2014: 232(2):410-413. Performed By: #### L IPNF ####[facility] [id number] [address] [place] NON HDL CHOL, NF 192 mg/dL High <130 [facility] Comment on above: Order Comment: Ramírez ruffin Type: BLOOD SPECIMENOrdering Facility: [facility] Address: [address] [place] [address] Result Comment: <130 mg/dL, Optimal 130-159 mg/dL, Near optimal/above optimal 160-189 mg/dL, Borderline high 190-219 mg/dL, High >219 mg/dL, Very high Secondary prevention optimal non HDL Cholesterol levels are recommended to be <100 mg/dL Performed By: #### L IPNF ####[facility] [id number] [address] OF [facility] T CHOL/HDL RATIO NF 3.29 mg/dL Normal <5.10 [facility] Comment on above: Order Comment: Speci men Type: BLOOD SPECIMENOrdering Facility: [facility] Address: [address] [place] [address] Performed By: #### L IPNF ####[facility] LABIA [id number] [address] [place], [place] 81 mg/dL Normal <150 [facility] Comment on above: Order Comment: Speci men Type: BLOOD SPECIMENOrdering Facility: [facility] Address: [address] [place] [address] Result Comment: <150 mg/dL, Normal 150-199 mg/dL, Borderline high 200-499 mg/dL, High >499 mg/dL, Very high Performed By: #### L IPNF ####[facility]IA [id number] [address] OF [place] VLDL CHOLESTEROL, NF 16 mg/dL Normal <30 [facility] Comment on above: Order Comment: Speci men Type: BLOOD SPECIMENOrdering Facility: [facility] Address: [address] [place] [address] Performed By: #### L IPNF ####[facility] LABIA [id number] [address] OF [facility] CNOVon 01-08-2025 CNOV Office Visit (FAMPWS ) JULIANN ELLIOTT ([id number]) 1970 F Date Time Provider Department 01/08/25 7:40 AM TERI NEWMAN During your visit today, we recorded the following information about you: Temperature Pulse Respiration Blood pressure 98.4 degrees 76/minute 16/minute 148/89 Weight 63 kg Teri Newman PA-C 01/08/2025 8:11 AM Signed Chief Complaint Patient presents with: Follow Up: Blood pressure HPI Juliann Elliott is a 54 year old female who presents here today for Above Complaints.. Hypertension: - Home blood pressure readings over the past two weeks: - 139/90 mmHg - 140/95 mmHg - 139/90 mmHg - 140/89 mmHg - 129/77 mmHg - 116/82 mmHg - 106/77 mmHg - 132/76 mmHg - 126/78 mmHg - Noted that lower readings are typically in the afternoon. - Checks blood pressure at work, not immediately upon waking. - Family history: Father of a myocardial infarction at age 52; mother has hypertension. - Engages in regular exercise, including walking and working out. - Follows a vegetarian diet. - Consumes one glass of wine per night, with additional 2-3 glasses on weekends. 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 Past medical history, appointments, medications, allergies reviewed. 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 Heavy menstrual bleeding 01/10/2014 History of COVID-19 06/14/2020 06/13/2020 Irregular menstrual cycle 06/11/2005 PCB (post coital bleeding) 01/10/2014 Previous Surgical History PAST SURGICAL HISTORY Procedure Laterality Date PAST SURGICAL HISTORY OF 08/16/2008 removal of cervical disc with bone graft, C3-C4 STRESS TEST 08/01/2017 stress echo: WNL TONSILLECTOMY PRIMARY/SECONDARY Tonsillectomy Family History FAMILY HISTORY Problem Relation Age of Onset None Mother other (pulmonary embolism) Mother Coronary Artery Disease Father 52 Hypertension Father Hypertension Brother Cerebral Embolism Maternal Grandmother Diabetes Maternal Grandfather Coronary Artery Disease Paternal Grandfather 40's Alzheimer's Disease No Family History Colon Cancer No Family History Prostate Cancer No Family History Breast Cancer No Family History Ovarian cancer No Family History Uterine Cancer No Family History Hyperlipidemia No Family History Kidney Disease No Family History Seizures No Family History Stroke No Family History Thyroid No Family History Patient Allergies ALLERGIES No Known Allergies Current Medications Current Outpatient Medications on File Prior to Visit Medication Sig Cholecalciferol, Vitamin D3, (VITAMIN D) 25 mcg (1,000 unit) cap Take 2 capsules by mouth once daily. clonazePAM (KLONOPIN) 0.5 mg tablet Take 1 tablet by mouth two times a day as needed for anxiety. For flying. fexofenadine HCl (SONIA ALLERGY ORAL) Take by mouth once daily. APPLE CIDER VINEGAR ORAL Take by mouth. loratadine (CLARITIN) 10 mg tablet Take 10 mg by mouth once daily. MULTIVITAMIN ORAL Multivitamin preparation Multivitamin [Multivitamins] 1 TAB PO DAILY February 19, 2019 Active 02-19-2019 [facility] ([id number]) No current facility-administered medications on file prior to visit. Social History Social History Tobacco Use Smoking status: Never Passive exposure: Never Smokeless tobacco: Never Vaping Use Vaping status: Never Used Substance Use Topics Alcohol use: Yes Alcohol/week: 7.0 - 10.0 standard drinks of alcohol Types: 7 - 10 Glasses of Wine (5oz) per week Comment: socially Drug use: No Review of Symptoms REVIEW OF SYSTEMS SEE HPI EXAM: BP 148/89 (BP Site: Left Arm, BP Position: Sitting, BP Cuff Size: Regular Adult) Pulse 76 Temp 36.9 ?C (98.4 ?F) Resp 16 Wt 63 kg (139 lb) LMP 09/11/2020 (LMP Unknown) SpO2 98% BMI 24.62 kg/m? General Appearance: Well appearing, alert, in no acute distress, well-hydrated, well nourished.. Health Maintenance List Shingrix Vaccine(1 of 2) Never done Diabetes Screening due on 04/20/2022 Lipid Screening due on 04/20/2024 Mammogram Screening due on 01/30/2025 Influenza Vaccine(Season Ended) due on 03/18/2025 Depression Screening due on 12/17/2025 Anxiety Screening due on 12/17/2025 Cervical Cancer Screening due on 12/11/2026 Colorectal Cancer Screening due on 08/02/2027 DTaP,Tdap,Td Vacci (more content not included)... Normal [facility] CNOVon 12-17-2024 CNOV Office Visit (FAMPWS ) JULIANN ELLIOTT ([id number]) 1970 F Date Time Provider Department 12/17/24 9:20 [facility] During your visit today, we recorded the following information about you: Pulse Respiration Blood pressure Weight 65/minute 16/minute 158/102 63.5 kg Height 1.6 m Dany Berman MD 12/17/2024 12:32 PM Signed Chief Complaint Patient presents with: Physical HPI Juliann Elliott is a 54 year old female who presents here today for Physical/re-establish . Patient sees GRILL PREP COOK last visit 12/2023 Patient has a fear of flying and this is treated with prn klonopin. Patient has been doing ok. Last seen us in 2019. No new issues or concerns. Past medical history, appointments, medications, allergies reviewed. 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 Heavy menstrual bleeding 01/10/2014 Irregular menstrual cycle 06/11/2005 PCB (post coital bleeding) 01/10/2014 Previous Surgical History PAST SURGICAL HISTORY Procedure Laterality Date PAST SURGICAL HISTORY OF 08/16/2008 removal of cervical disc with bone graft, C3-C4 STRESS TEST 08/01/2017 stress echo: WNL TONSILLECTOMY PRIMARY/SECONDARY Tonsillectomy Family History FAMILY HISTORY Problem Relation Age of Onset None Mother other (pulmonary embolism) Mother Coronary Artery Disease Father 52 Hypertension Father Hypertension Brother Cerebral Embolism Maternal Grandmother Diabetes Maternal Grandfather Coronary Artery Disease Paternal Grandfather 40's Alzheimer's Disease No Family History Colon Cancer No Family History Prostate Cancer No Family History Breast Cancer No Family History Ovarian cancer No Family History Uterine Cancer No Family History Hyperlipidemia No Family History Kidney Disease No Family History Seizures No Family History Stroke No Family History Thyroid No Family History Patient Allergies ALLERGIES No Known Allergies Current Medications Current Outpatient Medications on File Prior to Visit Medication Sig clonazePAM (KLONOPIN) 0.5 mg tablet Take 1 tablet by mouth two times a day as needed for anxiety. For flying. clonazePAM (KLONOPIN) 0.5 mg tablet Take 1 tablet by mouth twice daily as needed for anxiety. For flying. fexofenadine HCl (SONIA ALLERGY ORAL) Take by mouth once daily. cholecalciferol, vitamin D3, (VITAMIN D3 ORAL) Take by mouth. (Patient not taking: Reported on 05/28/2022) APPLE CIDER VINEGAR ORAL Take by mouth. loratadine (CLARITIN) 10 mg tablet Take 10 mg by mouth once daily. MULTIVITAMIN ORAL Multivitamin preparation Multivitamin [Multivitamins] 1 TAB PO DAILY February 19, 2019 Active 02-19-2019 [facility] ([id number]) No current facility-administered medications on file prior to visit. Social History Social History Tobacco Use Smoking status: Never Passive exposure: Never Smokeless tobacco: Never Vaping Use Vaping status: Never Used Substance Use Topics Alcohol use: Yes Alcohol/week: 7.0 - 10.0 standard drinks of alcohol Types: 7 - 10 Glasses of Wine (5oz) per week Comment: socially Drug use: No Review of Symptoms REVIEW OF SYSTEMS GENERAL: No unintentional weight loss, malaise or fevers HEENT: Negative for frequent or significant headaches, No changes in hearing or vision, no nose bleeds or other nasal problems NECK: Negative for lumps, goiter, pain and significant neck swelling RESPIRATORY: Negative for cough, hemoptysis, wheezing, COPD, dyspnea or shortness of breath CARDIOVASCULAR: Negative for chest pain, leg swelling, hypertension, CHF or palpitations GI: No nausea, vomiting, or diarrhea, No heartburn or reflux symptoms, and no blood. : No history of dysuria, frequency or blood. MUSCULOSKELETAL: some pain in th right elbow since starting cross fit. SKIN: Negative for lesions, rash, and itching PSYCH: Negative for sleep disturbance, mood disorder and recent psychosocial stressors HEMATOLOGY/LYMPHOLOGY : Negative for prolonged bleeding, bruising easily or swollen nodes ENDOCRINE: Negative for cold or heat intolerance, polyuria, polydipsia and goiter NEURO: No history of headaches, syncope, paralysis, seizures or tremors SEE HPI EXAM: BP 160/100 Pulse 65 Resp 16 Ht 160 cm (5' 3) Wt 63.5 kg (140 lb) LMP 09/11/2020 (LMP Unknown) SpO2 99% BMI 24.80 kg/m? BP 158/102 Pulse 65 Resp 16 Ht 160 cm (5' 3) Wt 63.5 kg (140 lb) (more content not included)... Normal [facility] CNPNon 11-15-2024 CNPN Telephone (FAMPWS) JULIANN ELLIOTT ([id number]) 1970 F Date Time Provider Department 11/15/24 NO PCP (HISTORICAL) FAMPWS During your visit today, we recorded the following information about you: Ernesto Munoz RN 11/15/2024 8:27 AM Signed Patient calls to set up an appointment to see Dr. Berman for general health. Reports when had mom (Sarah) in office was given the ok. No notes in patient chart. Please verify and call patient back at [phone]. Patient asking to speak to Jennifer. PRATEEK Meyer Roxanne, MA 11/16/2024 9:19 AM Signed Contacted patient and scheduled. Jennifer Lee MA Allergies As of Date: 11/15/2024 (No Known Allergies) Date Reviewed: 10/06/2024 Reviewed by: Natali Dejesus MA - Fully Assessed Reason for Visit: Appointment [[id number]] Prescriptions as of 11/16/2024 - clonazePAM (KLONOPIN) 0.5 mg tablet Take 1 tablet by mouth two times a day as needed for anxiety. For flying. - clonazePAM (KLONOPIN) 0.5 mg tablet Take 1 tablet by mouth twice daily as needed for anxiety. For flying. - fexofenadine HCl (SONIA ALLERGY ORAL) Take by mouth once daily. - cholecalciferol, vitamin D3, (VITAMIN D3 ORAL) Take by mouth. - APPLE CIDER VINEGAR ORAL Take by mouth. - loratadine (CLARITIN) 10 mg tablet Take 10 mg by mouth once daily. - MULTIVITAMIN ORAL Multivitamin preparation Multivitamin [Multivitamins] 1 TAB PO DAILY February 19, 2019 Active 02-19-2019 [facility] ([id number]) Meds Comments as of 06/27/2009: All medications reviewed /June 27, 2009 Letty Shultz Rn Problem List As Of Date 11/15/2024 Noted Resolved Routine gynecological examination [Z01.419] 06/11/2005 06/05/2012 Irregular menstrual cycle [N92.6] 06/11/2005 Supervision of other normal [Z34.80] 09/09/2005 06/05/2012 Elderly multigravida with antepartum condition *11/09/2005 06/05/2012 ACUTE BRONCHITIS [J20.9] 01/24/2006 Cervicalgia [M54.2] 11/10/2007 Degeneration of cervical intervertebral disc [M*11/10/2007 Displacement of cervical intervertebral disc wi*06/06/2008 Heavy menstrual bleeding [N92.0] 01/10/2014 PCB (post coital bleeding) [N93.0] 01/10/2014 Enlarged uterus [N85.2] 01/10/2014 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] 04/05/2017 Encounter for gynecological examination without*04/05/2017 Well adult exam [Z00.00] 04/05/2017 Family history of early CAD [Z82.49] 04/05/2017 Encounter for screening for diabetes mellitus [*04/05/2017 COVID-19 virus infection [U07.1] 06/14/2020 Encounter Status:Closed by JENNIFER LEE on 11/16/24 Normal [facility] CNOVon 10-06-2024 CNOV Office Visit (UCWSTR ) JULIANN ELLIOTT ([id number]) 1970 F Date Time Provider Department 10/06/24 9:45 AM ALEA VERGARA RUST During your visit today, we recorded the following information about you: Temperature Pulse Respiration Blood pressure 97.9 degrees 71/minute 16/minute 156/110 Weight 65.9 kg Alea Vergara PA 10/06/2024 9:45 AM Signed [facility] Subjective Juliann Elliott is a 54 year old female. Patient presents with: Sinus Problem HPI 54-year-old female presents for sinus congestion, cough x 4 to 5 days. Patient states she has had nasal congestion for the past several days, she states last night she had a lot of sinus pressure and crackling in her sinuses. She also has ear pressure. She has a little bit of a cough. No fevers. No vomiting or diarrhea. No chest pain or shortness of breath. No other complaint. 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 Heavy menstrual bleeding 01/10/2014 Irregular menstrual cycle 06/11/2005 PCB (post coital bleeding) 01/10/2014 PAST SURGICAL HISTORY Procedure Laterality Date PAST SURGICAL HISTORY OF 08/16/2008 removal of cervical disc with bone graft, C3-C4 STRESS TEST 08/01/2017 stress echo: WNL TONSILLECTOMY PRIMARY/SECONDARY Tonsillectomy ALLERGIES Patient has no known allergies. MEDICATIONS [START ON 10/08/2024] amoxicillin-clavulana te potassium (AUGMENTIN) 875-125 mg per tablet Take 1 tablet by mouth two times a day for 5 days. Patient should start on October 08, 2024. clonazePAM (KLONOPIN) 0.5 mg tablet Take 1 tablet by mouth two times a day as needed for anxiety. For flying. clonazePAM (KLONOPIN) 0.5 mg tablet Take 1 tablet by mouth twice daily as needed for anxiety. For flying. fexofenadine HCl (SONIA ALLERGY ORAL) Take by mouth once daily. cholecalciferol, vitamin D3, (VITAMIN D3 ORAL) Take by mouth. (Patient not taking: Reported on 05/28/2022) APPLE CIDER VINEGAR ORAL Take by mouth. loratadine (CLARITIN) 10 mg tablet Take 10 mg by mouth once daily. MULTIVITAMIN ORAL Multivitamin preparation Multivitamin [Multivitamins] 1 TAB PO DAILY February 19, 2019 Active 02-19-2019 [facility] ([id number]) FAMILY HISTORY Problem Relation Age of Onset None Mother other (pulmonary embolism) Mother Coronary Artery Disease Father 52 Hypertension Father Hypertension Brother Cerebral Embolism Maternal Grandmother Diabetes Maternal Grandfather Coronary Artery Disease Paternal Grandfather 40's Alzheimer's Disease No Family History Colon Cancer No Family History Prostate Cancer No Family History Breast Cancer No Family History Ovarian cancer No Family History Uterine Cancer No Family History Hyperlipidemia No Family History Kidney Disease No Family History Seizures No Family History Stroke No Family History Thyroid No Family History Social History Tobacco Use Smoking status: Never Passive exposure: Never Smokeless tobacco: Never Vaping Use Vaping status: Never Used Substance Use Topics Alcohol use: Yes Alcohol/week: 7.0 - 10.0 standard drinks of alcohol Types: 7 - 10 Glasses of Wine (5oz) per week Comment: socially Drug use: No Review of Systems Constitutional: Negative for chills and fever. HENT: Positive for congestion, sinus pressure and sinus pain. Negative for ear pain and sore throat. Respiratory: Positive for cough. Negative for shortness of breath. Cardiovascular: Negative for chest pain. Gastrointestinal: Negative for diarrhea and vomiting. Objective BP 156/110 Pulse 71 Temp 36.6 ?C (97.9 ?F) Resp 16 Wt 65.9 kg (145 lb 4.5 oz) LMP 09/11/2020 (LMP Unknown) SpO2 97% BMI 26.15 kg/m? Physical Exam Vitals and nursing note reviewed. Constitutional: General: She is not in acute distress. Appearance: Normal appearance. She is not toxic-appearing. HENT: Right Ear: Tympanic membrane and ear canal normal. Left Ear: Tympanic membrane and ear canal normal. Nose: Mucosal edema and congestion present. Mouth/Throat: Mouth: Mucous membranes are moist. Eyes: Conjunctiva/sclera: Conjunctivae normal. Cardiovascular: Rate and Rhythm: Normal rate and regular rhythm. Pulmonary: Effort: Pulmonary effort is normal. Breath sounds: Normal breath sounds. Skin: General: Skin is warm and dry. Neurological: Mental Status: She is alert. {ASSESSMENT/PLAN: 1. URI, acute - ICD9 (more content not included)... Normal [facility] DBT Breast - bilateral scree karlgon 01-31-2024 IMPRESSION: NEGATIVE There is no mammographic evidence of malignancy. A 1 year screening mammogram is recommended. Barak Etienne M.D. pt/penrad:01/31/2024 11:23:04 Insurance Claims Supervisor(s): RT Christy(R)(M), [facility] letter sent: Normal over 40 Mammogram BI-RADS: Category 1: Negative Multiple national specialty organizations have released breast cancer screening guidelines for women at average risk for developing breast cancer - guidelines that are based on both evidence and opinion, yet differ on when to start and how often to screen for breast cancer. With representation from Breast Imaging, Internal Medicine, Women's Health, Family Medicine, and Medical/Surgical Oncology, the [facility] has carefully reviewed the data and reached the following consensus: 1) All women should engage in shared decision-making with their providers to decide when to start and how often to screen; 2) All women should have the opportunity to start screening mammography at age 40; 3) For women ages 45-55, we recommend annual screening mammograms; 4) For women ages 55 and over, we support both the transition from an annual to a biennial interval if this aligns more with patient's values and preferences, or continuation with annual screening; 5) All women should discuss with their providers when to stop screening mammograms. Clinical Trials Systems Administrator: Festus Transcribe Date/Time: Jan 31 2024 7:44A Dictated by: BARAK ETIENNE MD This examination was interpreted and the report reviewed and electronically signed by: BARAK ETIENNE MD on Jan 31 2024 11:23AM [facility] DIVISION OF RADIOLOGY * * *Final Report* * * DATE OF EXAM: Jan 31 2024 8:02AM [facility] [id number] - DIEGO SCREENING W RANDY / PROCEDURE REASON: Encounter for screening mammogram for malignant neoplasm of breast * * * * Physician Interpretation * * * * RESULT: #[id number] - DIEGO SCREENING W RANDY BILATERAL DIGITAL SCREENING MAMMOGRAM TOMOSYNTHESIS WITH CAD: 01/31/2024 HISTORY: /Screening Mammogram with RANDY - patient reports NO breast symptoms /priors available for comparison Encounter For Screening Mammogram For Malignant Neoplasm Of Breast. RESULT: TECHNIQUE: The study was acquired using full field digital technology and interpreted from soft copy. Digital Breast Tomosynthesis (DBT) images were obtained and used to assist in the interpretation of this examination. Current study was also evaluated with a Computer Aided Detection (CAD). Comparison is made to exams dated: 01/10/2023 mammogram, 11/20/2021 mammogram, 06/26/2020 mammogram - [facility], 06/06/2019 mammogram, 06/06/2018 mammogram, and 06/21/2017 mammogram - [facility]. There are scattered areas of fibroglandular density. No significant masses, calcifications, or other findings are seen in either breast. There has been no significant interval change. DIVISION OF RADIOLOGY Provider, [facility] - 01/31/2024 * * *Final Report* * * DATE OF EXAM: Jan 31 2024 8:02AM [facility] [id number] - DIEGO SCREENING W RANDY / PROCEDURE REASON: Encounter for screening mammogram for malignant neoplasm of breast * * * * Physician Interpretation * * * * RESULT: #[id number] - DIEGO SCREENING W RANDY BILATERAL DIGITAL SCREENING MAMMOGRAM TOMOSYNTHESIS WITH CAD: 01/31/2024 HISTORY: /Screening Mammogram with RANDY - patient reports NO breast symptoms /priors available for comparison Encounter For Screening Mammogram For Malignant Neoplasm Of Breast. RESULT: TECHNIQUE: The study was acquired using full field digital technology and interpreted from soft copy. Digital Breast Tomosynthesis (DBT) images were obtained and used to assist in the interpretation of this examination. Current study was also evaluated with a Computer Aided Detection (CAD). Comparison is made to exams dated: 01/10/2023 mammogram, 11/20/2021 mammogram, 06/26/2020 mammogram - [facility], 06/06/2019 mammogram, 06/06/2018 mammogram, and 06/21/2017 mammogram - [facility]. There are scattered areas of fibroglandular density. No significant masses, calcifications, or other findings are seen in either breast. There has been no significant interval change. IMPRESSION IMPRESSION: NEGATIVE There is no mammographic evidence of malignancy. A 1 year screening mammogram is recommended. Barak Etienne M.D. pt/festus:01/31/2024 11:23:04 Insurance Claims Supervisor(s): RT Christy(R)(M), [facility] letter sent: Normal over 40 Mammogram BI-RADS: Category 1: Negative Multiple national specialty organizations have released breast cancer screening guidelines for women at average risk for developing breast cancer - guidelines that are based on both evidence and opinion, yet differ on when to start and how often to screen for breast cancer. With representation from Breast Imaging, Internal Medicine, Women's Health, Family Medicine, and Medical/Surgical Oncology, the [facility] has carefully reviewed the data and reached the following consensus: 1) All women should engage in shared decision-making with their providers to decide when to start and how often to screen; 2) All women should have the opportunity to start screening mammography at age 40; 3) For women ages 45-55, we recommend annual screening mammograms; 4) For women ages 55 and over, we support both the transition from an annual to a biennial interval if this aligns more with patient's values and preferences, or continuation with annual screening; 5) All women should discuss with their providers when to stop screening mammograms. Clinical Trials Systems Administrator: Festus Transcribe Date/Time: Yannick 16 2024 7:44A Dictated by: BARAK ETIENEN MD This examination was interpreted and the report reviewed and electronically signed by: BARAK ETIENNE MD on Jan 31 2024 11:23AM EST [facility] Radiology Study observation (narrative) [facility] DBT Breast - bilateral scree ningOrdered By: [facility] Provider on 01-31-2024 [facility] DIEGO SCREENING W [facility] 01-10 [facility] Laboratory - Chemistry and C hemistry - challengeOrdered By: Dr. Vergara on 08-02-2022 HCG ( test) Ql (U) Negative [facility] Comment on above: Very dilute urine sp ecimens, as indicated by a low specificgravity, may not contain employee's representative levels of hCG. If is still suspected, a first morning urinespecimen should be collected 48 hours later and tested. DIEGO SCREENING W [facility] 11-20 [facility] Vital Signs Date Time Vital Sign Value Performing Clinician Facility 02-05-2025 07:53-0400 Diastolic blood pressure 78 mm[Hg] Teri JENSEN-C Work Phone: [facility] Comment on above: average with bp machine 02-05-2025 07:53-0400 Heart rate 68 /min Teri JENSEN-C Work Phone: [facility] 02-05-2025 07:53-0400 Systolic blood pressure 127 mm[Hg] Teri JENSEN-C Work Phone: [facility] Comment on above: average with bp machine 02-05-2025 07:42-0400 Body mass index (BMI) [Ratio] 24.98 kg/m2 Teri JENSEN-C Work Phone: [facility] 02-05-2025 07:42-0400 Body temperature 97.81 [degF] Teri JENSEN-C Work Phone: [facility] 02-05-2025 07:42-0400 Body weight 63.96 kg Teri JENSEN-C Work Phone: [facility] 02-05-2025 07:42-0400 Respiratory rate 16 /min Teri JENSEN-C Work Phone: [facility] 02-05-2025 07:42-0400 SaO2% (BldA) [Mass fraction] 99 % Teri Newman PA-C Work Phone: [facility] 01-08-2025 07:34-0400 Diastolic blood pressure 89 mm[Hg] Teri Newman PA-C Work Phone: [facility] Comment on above: average with bp machine 01-08-2025 07:34-0400 Heart rate 76 /min Teri Newman PA-C Work Phone: [facility] 01-08-2025 07:34-0400 Systolic blood pressure 148 mm[Hg] Teri Newman PA-C Work Phone: [facility] Comment on above: average with bp machine 01-08-2025 07:21-0400 Body mass index (BMI) [Ratio] 24.62 kg/m2 Teri Newman PA-C Work Phone: [facility] 01-08-2025 07:21-0400 Body temperature 98.4 [degF] Teri Newman PA-C Work Phone: [facility] 01-08-2025 07:21-0400 Body weight 63.05 kg Teri Newman PA-C Work Phone: [facility] 01-08-2025 07:21-0400 Respiratory rate 16 /min Teri Newman PA-C Work Phone: [facility] 01-08-2025 07:21-0400 SaO2% (BldA) [Mass fraction] 98 % Teri Newman PA-C Work Phone: [facility] 12-17-2024 12:30-0400 Diastolic blood pressure 102 mm[Hg] Dany Berman MD Work Phone: [facility] 12-17-2024 12:30-0400 Systolic blood pressure 158 mm[Hg] Dany Berman MD Work Phone: [facility] 12-17-2024 09:27-0400 Body height 160 cm Dany Berman MD Work Phone: [facility] 12-17-2024 09:27-0400 Body mass index (BMI) [Ratio] 24.8 kg/m2 Dany Berman MD Work Phone: [facility] 12-17-2024 09:27-0400 Body weight 63.5 kg Dany Berman MD Work Phone: [facility] 12-17-2024 09:27-0400 Heart rate 65 /min Dany Berman MD Work Phone: [facility] 12-17-2024 09:27-0400 Respiratory rate 16 /min Dany Berman MD Work Phone: [facility] 12-17-2024 09:27-0400 SaO2% (BldA) [Mass fraction] 99 % Dany Berman MD Work Phone: [facility] 10-06-2024 09:25-0400 Body mass index (BMI) [Ratio] 26.15 kg/m2 Krislyn Aberegg PA Work Phone: [facility] 10-06-2024 09:25-0400 Body temperature 97.9 [degF] Krislyn Aberegg PA Work Phone: [facility] 10-06-2024 09:25-0400 Body weight 65.9 kg Krislyn Aberegg PA Work Phone: [facility] 10-06-2024 09:25-0400 Diastolic blood pressure 110 mm[Hg] Krislyn Aberegg PA Work Phone: [facility] 10-06-2024 09:25-0400 Heart rate 71 /min Krislyn Aberegg PA Work Phone: [facility] 10-06-2024 09:25-0400 Respiratory rate 16 /min Krislyn Aberegg PA Work Phone: [facility] 10-06-2024 09:25-0400 SaO2% (BldA) [Mass fraction] 97 % Krislyn Aberegg PA Work Phone: [facility] 10-06-2024 09:25-0400 Systolic blood pressure 156 mm[Hg] Alea Mensahpetra PA Work Phone: [facility] 12-23-2023 08:51-0400 Body height 158.8 cm Jodie [place] SCREEN PRINT OPERATOR.SCHOOL CROSSING GUARD Work Phone: [facility] 12-23-2023 08:51-0400 Body mass index (BMI) [Ratio] 24.73 kg/m2 Jodie [place] SCREEN PRINT OPERATOR.SCHOOL CROSSING GUARD Work Phone: [facility] 12-23-2023 08:51-0400 Body weight 62.32 kg Jodie [place] SCREEN PRINT OPERATOR.SCHOOL CROSSING GUARD Work Phone: [facility] 12-23-2023 08:51-0400 Diastolic blood pressure 82 mm[Hg] Jodie Greg SCREEN PRINT OPERATOR.SCHO[employer] CROSSING GUARD Work Phone: [facility] 12-23-2023 08:51-0400 Systolic blood pressure 138 mm[Hg] Jodie Greg SCREEN PRINT OPERATOR.SCHO[employer] CROSSING GUARD Work Phone: [facility] 08-02-2022 12:40-0500 Body temperature 98.4 [degF] [facility] 08-02-2022 12:40-0500 Diastolic blood pressure 75 mm[Hg] [facility] 08-02-2022 12:40-0500 Heart rate 62 /min [facility] 08-02-2022 12:40-0500 Respiratory rate 14 /min [facility] 08-02-2022 12:40-0500 SaO2% (BldA) [Mass fraction] 96 % [facility] 08-02-2022 12:40-0500 Systolic blood pressure 111 mm[Hg] [facility] 08-02-2022 11:08-0500 Body height 160.02 cm [facility] 08-02-2022 11:08-0500 Body mass index (BMI) [Ratio] 23 kg/m2 [facility] 08-02-2022 11:08-0500 Body weight 59 kg [facility] 07-27-2022 14:48-0500 Body weight 59.88 kg Anamika Mckay SCREEN PRINT OPERATOR.SCHO[employer] CROSSING GUARD Work Phone: [facility] 07-27-2022 14:48-0500 Diastolic blood pressure 78 mm[Hg] Anamika Mckay SCREEN PRINT OPERATOR.SCHO[employer] CROSSING GUARD Work Phone: [facility] 07-27-2022 14:48-0500 Systolic blood pressure 112 mm[Hg] Anamika Mckay SCREEN PRINT OPERATOR.SCHOOL CROSSING GUARD Work Phone: [facility] 12-11-2021 08:11-0400 Body height 160 cm Jodie [place] SCREEN PRINT OPERATOR.SCHO[employer] CROSSING GUARD Work Phone: [facility] 12-11-2021 08:11-0400 Body weight 61.15 kg Jodie [place] SCREEN PRINT OPERATOR.SCHO[employer] CROSSING GUARD Work Phone: [facility] 12-11-2021 08:11-0400 Diastolic blood pressure 60 mm[Hg] Jodie [place] SCREEN PRINT OPERATOR.SCHO[employer] CROSSING GUARD Work Phone: [facility] 12-11-2021 08:11-0400 Systolic blood pressure 120 mm[Hg] Jodie Greg SCREEN PRINT OPERATOR.SCHO[employer] CROSSING GUARD Work Phone: [facility] Encounters Encounter Date Encounter Type Care Provider Facility Start: 03-01-2025 ambulatory Dany Berman Facility :[facility] Start: 02-18-2025 ambulatory DANY BERMAN [facility] ty:[facility] Start: 02-18-2025 End: 02-18-2025 Subsequent hospital visit by physician Screen Mammo [facility] Comment on above: Screening mammogram for breast cancer [Z12.31] Start: 02-12-2025 End: 02-13-2025 Telephone encounter Dany Berman MD Work Phone: [address] [place] [address] Comment on above: Orders Start: 02-07-2025 End: 02-07-2025 Follow-up encounter Teri Newman PA-C Work Phone: [facility] [place] Start: 02-05-2025 End: 02-05-2025 Office outpatient visit 15 minutes Teri Newman PA-C Work Phone: [facility] [place] Comment on above: Essential (primary) hypertension (Primary Dx); Encounter for screening for cardiovascular disorders; Family history of ischemic heart disease Start: 02-05-2025 End: 02-05-2025 ambulatory DANY BERMAN Facility:[facility] Start: 01-08-2025 End: 01-08-2025 Office outpatient visit 25 minutes Teri Newman PA-C Work Phone: [facility] [place] Comment on above: Hypertension, essent ial (Primary Dx) Start: 01-08-2025 End: 01-08-2025 ambulatory TERI NEWMAN Facility:[facility] Start: 12-17-2024 Encounter for genera l adult medical examination without abnormal findings DANY BERMAN [facility] Start: 12-17-2024 End: 12-17-2024 Patient encounter procedure Dany Berman MD Work Phone: [facility] [place] Comment on above: Well adult exam (Queenie ashleigh Dx); Fear of flying; Elevated BP without diagnosis of hypertension; Displacement 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; Encounter for lipid screening for cardiovascular disease; Encounter for screening for diabetes mellitus; Screening for depression; Encounter for screening examination for other mental health and behavioral disorders; Need for vaccination Start: 12-17-2024 End: 12-17-2024 Patient encounter status Dany Berman MD Work Phone: [facility] Work Phone: Start: 12-17-2024 End: 12-17-2024 ambulatory DANY BERMAN Facility:[facility] Start: 11-15-2024 End: 11-16-2024 Telephone encounter No Pcp (Historical) [facility] [place] Comment on above: Appointment Start: 10-06-2024 End: 10-06-2024 ambulatory DANY BREMAN Facility:[facility] Start: 10-06-2024 End: 10-06-2024 Office outpatient new 45 minutes Alea JENSEN Work Phone: [place] [facility] Comment on above: URI, acute (Primary Dx); Sinus congestion; Elevated blood pressure reading without diagnosis of hypertension Start: 07-21-2024 End: 07-23-2024 ambulatory Anamika Mckay APRN.SCHO[employer] CROSSING GUARD Work Phone: OB/Gynecology Comment on above: Request Start: 01-31-2024 Documentation procedure Mammog candida Coordinator [facility] Department Start: 01-31-2024 Letter encounter Mammography Coordinator [facility] Department Start: 01-31-2024 End: 01-31-2024 Subsequent hospital visit by physician Screen Mammo [facility] Comment on above: Encounter for screen ing mammogram for malignant neoplasm of breast [Z12.31] Start: 01-10-2024 Refill Kirsten amaya MD Work Phone: OB/Gynecology Comment on above: Refill Request Start: 12-23-2023 End: 12-23-2023 Patient encounter procedure Jodie Garza APRN.SCHO[employer] CROSSING GUARD Work Phone: OB/Gynecology Comment on above: Encounter for gyneco logical examination (general) (routine) without abnormal findings (Primary Dx); Encounter for screening mammogram for breast cancer; Dense breast tissue Start: 12-23-2023 End: 12-23-2023 Patient encounter status Jodie Garza APRN.SCHO[employer] CROSSING GUARD Work Phone: [facility] Start: 10-28-2023 Telephone encounter Dany Berman MD Work Phone: [facility] [place] Comment on above: Orders (mammogram) Orders Start: 08-22-2023 Refill Dany acosta MD Work Phone: [facility] [place] Comment on above: Refill Request Anxiety Start: 01-10-2023 End: 01-10-2023 Subsequent hospital visit by physician Screen Mammo [facility] Comment on above: Encounter for screen ing mammogram for malignant neoplasm of breast [Z12.31] Start: 08-02-2022 End: 08-02-2022 Admission to same day surgery center [facility] Start: 08-02-2022 End: 08-02-2022 ambulatory [facility] Work Phone: Start: 07-27-2022 End: 07-27-2022 Patient encounter procedure Anamika Mckay APRN.SCHO[employer] CROSSING GUARD Work Phone: OB/Gynecology Comment on above: Herpes simplex vulvo vaginitis (Primary Dx) Start: 04-26-2022 Telephone encounter Rudy baldwin MD Work Phone: General Surgery Comment on above: Outpatient [place] [facility] Start: 12-29-2021 Refill Jodie Garza APRN.SCHO[employer] CROSSING GUARD Work Phone: OB/Gynecology Comment on above: Refill Request Start: 12-11-2021 End: 12-11-2021 Patient encounter procedure Jodie Garza APRN.SCHO[employer] CROSSING GUARD Work Phone: OB/Gynecology Comment on above: Encounter for gyneco logical examination (general) (routine) without abnormal findings (Primary Dx); Anxiety; Encounter for screening for human papillomavirus (HPV); Pap smear for cervical cancer screening; Dense breast tissue; Encounter for screening mammogram for malignant neoplasm of breast Start: 12-11-2021 End: 12-11-2021 Patient encounter status Jodie Garza APRN.SCHO[employer] CROSSING GUARD Work Phone: OB/Gynecology Start: 11-20-2021 Documentation procedure Mammog candida Coordinator [facility] Start: 11-20-2021 Letter encounter Mammography Coordinator [facility] Department Start: 11-20-2021 End: 11-20-2021 Patient encounter status Screen Wstr Mammogram Start: 11-20-2021 End: 11-20-2021 Subsequent hospital visit by physician Screen Mammo [facility] Comment on above: Encounter for gyneco logical examination (general) (routine) without abnormal findings [Z01.419] Start: 06-13-2020 Patient encounter status Screen Wstr [facility] Work Phone: Start: 04-05-2017 Patient encounter status Screen Wstr [facility] Work Phone: Start: 06-11-2005 End: 06-05-2012 Patient encounter status Jodie Garza APRN.SCHO[employer] CROSSING GUARD Work Phone: [facility] Procedures Date Procedure Procedure Detail Performing Clinician Start: 02-05-2025 Lipid 1996 panel - Serum or Plasma Teri Newman PA-C Work Phone: Start: 12-17-2024 Adult depression screening assessment Dany Berman MD Work Phone: Start: 01-31-2024 Screening digital breast tomosynthesis bi Jodie Garza SCREEN PRINT OPERATOR.SCHO[employer] CR[employer]ING GUARD Work Phone: Start: 01-10-2023 Screening digital breast tomosynthesis bi Jodie Garza SCREEN PRINT OPERATOR.SCHO[employer] CROSSING GUARD Work Phone: Start: 08-02-2022 End: 08-02-2022 Colonoscopy Start: 11-20-2021 DIEGO SCREENING W RANDY Kirsten Ortega Work Phone: Start: 11-20-2021 Mammography Screen Wstr Start: 04-20-2019 Adult depression screening assessment Screen Wstr Start: 04-20-2019 Lipid 1996 panel - Serum or Plasma Screen Wstr History of tonsillectomy History of tonsi llectomy Plan of Treatment Date Care Activity Detail Author Start: 12-17-2034 Urine microalbumin profile DTaP,Tdap,Td Vaccine (3 - Td or Tdap) [facility] Start: 02-05-2030 Lipid panel Lipid Screening [facility] Start: 02-06-2028 Diabetes Screening Diabetes Screenin g [facility] Start: 08-02-2027 Screening for malign ant neoplasm of colon [facility] Start: 12-11-2026 HPV TESTING HPV TESTING [facility] Start: 12-11-2026 PAP TESTING PAP TESTING [facility] Start: 12-11-2026 Screening for malign ant neoplasm of cervix [facility] Start: 02-05-2026 Annual PCP Team Certified Family Mediator radha Disease Visit Annual PCP Team Chronic Disease Visit [facility] Start: 01-08-2026 Annual PCP Team Certified Family Mediator radha Disease Visit Annual PCP Team Chronic Disease Visit [facility] Start: 12-18-2025 End: 12-18-2025 Patient encounter procedure 12/18/2025 8:00 AM EDT Office Visit Family Roxie Bowamn [address] [facility] [place] [id number] Dany Berman MD [address] [place] [id number] Physical [facility] [place] Comment on above: Physical Start: 12-17-2025 Anxiety Screening Anxiety Screening [facility] Start: 12-17-2025 Depression Screening Depression Scre ening [facility] Start: 12-06-2025 End: 03-07-2026 Hemoglobin A1c in Blood HEMOGLOBIN A1C Lab Routine Well adult exam Encounter for screening for diabetes mellitus Expected: 12/06/2025, Expires: 03/07/2026 [facility] Comment on above: Expected: 12/06/2025 , Expires: 03/07/2026 Start: 12-06-2025 End: 03-07-2026 LIPID PANEL, NONFASTING LIPID PANEL, NONFASTING Lab Routine Well adult exam Encounter for lipid screening for cardiovascular disease Expected: 12/06/2025, Expires: 03/07/2026 [facility] Comment on above: Expected: 12/06/2025 , Expires: 03/07/2026 Start: 10-24-2025 HPV TESTING HPV TESTING [facility] Start: 10-24-2025 PAP TESTING PAP TESTING [facility] Start: 03-18-2025 Influenza vaccination [facility] Start: 02-18-2025 End: 02-18-2025 Patient encounter procedure 02/18/2025 2:50 PM EDT Appointment Mammogram [address] [place] [id number] Needs order Mammogram Comment on above: Needs order Start: 02-05-2025 End: 02-05-2025 Patient encounter procedure 02/05/2025 7:40 AM EDT Office Visit [facility] [place] [address] [place] [address] Teri Newman PA-C [address] [place] [address] 4 week bp f/u [facility] [place] Comment on above: 4 week bp f/u Start: 01-30-2025 Screening for malign ant neoplasm of breast Mammogram Screening [facility] Start: 01-09-2025 End: 01-09-2025 Patient encounter procedure 01/09/2025 7:50 AM EDT Appointment Mammogram [address] [place] [id number] Encounter for screening mammogram for breast cancer [Z12.31]; Dense breast tissue [R92.30] Mammogram Comment on above: Encounter for screen ing mammogram for breast cancer [Z12.31]; Dense breast tissue [R92.30] Start: 01-08-2025 End: 01-08-2025 Patient encounter procedure 01/08/2025 7:40 AM EDT [facility] [address] [facility], [place] [id number] Teri Newman PA-C [address] [place], [place] [id number] 3 week follow up on HTN [facility] [place] Comment on above: 3 week follow up on HTN Start: 01-07-2025 End: 01-07-2025 Patient encounter procedure Mammogram Comment on above: Encounter for screen ing mammogram for breast cancer [Z12.31]; Dense breast tissue [R92.30] Annual Start: 12-17-2024 End: 03-18-2025 Hemoglobin A1c in Blood HEMOGLOBIN A1C Lab Routine Well adult exam Encounter for screening for diabetes mellitus Expected: 12/17/2024, Expires: 03/18/2025 [facility] Work Phone: Comment on above: Expected: 12/17/2024 , Expires: 03/18/2025 Start: 12-17-2024 End: 03-18-2025 LIPID PANEL, NONFASTING LIPID PANEL, NONFASTING Lab Routine Well adult exam Encounter for lipid screening for cardiovascular disease Expected: 12/17/2024, Expires: 03/18/2025 [facility] Comment on above: Expected: 12/17/2024 , Expires: 03/18/2025 Start: 12-17-2024 End: 12-17-2024 Patient encounter procedure 12/17/2024 9:20 AM EDT Office Visit [facility] [place] [address] [place] [address] Dany Berman MD [address] [place], [place] [phone] Re-establish ok per Dr. Domingo pathak [facility] [place] Comment on above: Re-establish ok per Dr. Domingo pathak Start: 04-20-2024 Lipid 1996 panel - Serum or Plasma Lipid Screening [facility] Start: 04-20-2024 Lipid panel Lipid Screening [facility] Start: 04-20-2024 LIPID SCREEN LIPID SCREEN [facility] Start: 03-18-2024 Covid-19 Vaccine ( season) Covid-19 Vaccine () [facility] Start: 03-18-2024 Influenza vaccination C [facility] Start: 01-31-2024 End: 01-31-2024 Patient encounter procedure 01/31/2024 7:50 AM EDT Appointment Mammogram [address] [place] [address] Mammogram Start: 01-11-2024 Mammography Mammogram Screening [facility] Start: 01-11-2024 Screening for malign ant neoplasm of breast Mammogram Screening [facility] Start: 01-06-2024 End: 01-06-2024 Patient encounter procedure 01/06/2024 8:10 AM EDT Appointment Mammogram [address] [place] [address] Mammogram Start: 08-02-2023 Colonoscopy Colonoscopy [facility] Start: 08-02-2023 Colorectal Cancer Screening Colorectal Cancer Screening [facility] Start: 08-02-2023 Screening for malign ant neoplasm of colon [facility] Start: 07-18-2023 Behavioral Health Screening Behavioral Health Screening [facility] Start: 07-18-2023 [facility] Start: 03-18-2023 Covid-19 Vaccine () Covid-19 Vaccine () [facility] Start: 03-18-2023 Influenza vaccination Influenza Vacc ine (#1) [facility] Start: 11-20-2022 Mammography MAMMOGRAM [facility] Start: 08-02-2022 [place] [facility] [place]: 07-18-2022 DEPRESSION ASSESSMENT DEPRESSION ASS ESSMENT [facility] Start: 04-20-2022 DIABETES SCREEN DIABETES SCREEN [facility] Start: 04-20-2022 Diabetes Screening Diabetes Screenin g [facility] Start: 03-18-2022 Influenza vaccination INFLUENZA (#1) [facility] Start: 10-17-2021 COVID-19 VACCINE (4 - Booster for Moderna series) COVID-19 VACCINE (4 - Booster for Moderna series) [facility] Start: 08-13-2021 COVID-19 VACCINE (4 - Booster for Moderna series) COVID-19 VACCINE (4 - Booster for Moderna series) [facility] Start: 07-18-2021 DEPRESSION ASSESSMENT DEPRESSION ASS ESSMENT [facility] Start: 04-20-2020 Adult depression screening assessment DEPRESSION SCREENING [facility] Start: 03-10-2020 Urine microalbumin profile [facility] Start: 2019 Pneumococcal Vaccine : 50+ (1 of 1 - PCV) Pneumococcal Vaccine: 50+ (1 of 1 - PCV) [facility] Start: 2019 SHINGRIX VACCINE (1 of 2) SHINGRIX VACCINE (1 of 2) [facility] Start: 2014 COLOGUARD (FIT-DNA) COLOGUARD (FIT-D NA) [facility] Start: 2014 Colonoscopy COLONOSCOPY [facility] Start: 2014 COLORECTAL CANCER SCREENING COLORECTAL CANCER SCREENING [facility] Start: [address] COLONOGRAPHY [facility] Start: 2014 FECAL OCCULT BLOOD FECAL OCCULT BLOO D [facility] Start: 2014 Screening for malign ant neoplasm of colon [facility] Start: 2014 SIGMOIDOSCOPY SIGMOIDOSCOPY [facility] Start: 1988 Hepatitis B Vaccine (1 of 3 - 19+ 3-dose series) Hepatitis B Vaccine (1 of 3 - 19+ 3-dose series) [facility] Start: 1987 Anxiety Screening Anxiety Screening [facility] Start: 1987 Depression Screening Depression Scre ening [facility] Start: 1987 HEPATITIS C SCREENING HEPATITIS C [facility] Start: 1987 Hepatitis C screening Hepatitis C [facility] Start: 1987 HIV SCREENING HIV SCREENING [facility] Start: 1987 HIV screening HIV Screening [facility] Start: 1969 HEPATITIS B (1 of 3 - 3-dose series) HEPATITIS B (1 of 3 - 3-dose series) [facility] Start: 1969 Hepatitis B Vaccine (1 of 3 - 3-dose series) Hepatitis B Vaccine (1 of 3 - 3-dose series) [facility] End: 03-07-2026 CT Heart and Coronary arteries for calcium scoring WO contrast CT CALCIUM SCORING SELF PAY Radiology Routine Encounter for screening for cardiovascular disorders 1 Occurrences starting 02/05/2025 until 03/07/2026 [facility] Work Phone: Comment on above: 1 Occurrences starti ng 02/05/2025 until 03/07/2026 End: 11-26-2024 DBT Breast - bilateral screening DIEGO SCREENING W RANDY Radiology Routine Encounter for screening mammogram for malignant neoplasm of breast 1 Occurrences starting 10/31/2023 until 11/26/2024 [facility] Work Phone: Comment on above: 1 Occurrences starti ng 10/31/2023 until 11/26/2024 End: 01-21-2025 DBT Breast - bilateral screening DIEGO SCREENING W RANDY Radiology Routine Encounter for screening mammogram for breast cancer Dense breast tissue 1 Occurrences starting 12/23/2023 until 01/21/2025 [facility] Work Phone: Comment on above: 1 Occurrences starti ng 12/23/2023 until 01/21/2025 End: 03-15-2026 DBT Breast - bilateral screening DIEGO SCREENING W RANDY Radiology Routine Screening mammogram for breast cancer 1 Occurrences starting 02/13/2025 until 03/15/2026 [facility] Work Phone: Comment on above: 1 Occurrences starti ng 02/13/2025 until 03/15/2026 DBT Breast - bilater al screening DIEGO SCREENING W RANDY Radiology Routine Screening mammogram for breast cancer 02/18/2025 3:23 PM EDT [facility] Work Phone: End: 01-10-2023 DIEGO SCREENING W RANDY DIEGO SCREENING W RANDY Radiology Routine Encounter for screening mammogram for malignant neoplasm of breast 1 Occurrences starting 12/11/2021 until 01/10/2023 [facility] Work Phone: Comment on above: 1 Occurrences starti ng 12/11/2021 until 01/10/2023 PAP FLUID CERVICAL SCREENING PAP FLUID CERVICAL SCREENING Lab Routine Encounter for screening for human papillomavirus (HPV) Pap smear for cervical cancer screening Ordered: 12/11/2021 [facility] Work Phone: Comment on above: Ordered: 12/11/2021 Patient referral [facility] Work Phone: [facility] Immunizations Immunization Date Immunization Notes Care Provider Fa cility 12-17-2024 pneumococcal conjuga te (PCV20) vaccine, 20 valent (PREVNAR 20) Dany Berman MD Work Phone: [facility] 12-17-2024 tetanus toxoid, redu liv diphtheria toxoid, and acellular pertussis vaccine, adsorbed Dany Berman MD Work Phone: [facility] 12-17-2024 pneumococcal Conjuga te, unspecified formulation Dany Berman MD Work Phone: [facility] 05-15-2021 influenza virus vaccine, unspecified formulation Screen [facility] 10-17-2020 COVID-19 vaccine, fu ll dose (MODERNA) Screen [facility] 09-19-2020 COVID-19 vaccine, fu ll dose (MODERNA) Screen [facility] 04-20-2019 influenza, injectabl e, quadrivalent, contains preservative Screen [facility] 08-20-2013 influenza virus vaccine, unspecified formulation [facility] 06-05-2012 influenza virus vaccine, unspecified formulation [facility] 05-08-2011 influenza virus vaccine, live, attenuated, for intranasal use [facility] 06-01-2010 influenza virus vaccine, live, attenuated, for intranasal use [facility] 03-10-2010 tetanus toxoid, redu liv diphtheria toxoid, and acellular pertussis vaccine, adsorbed [facility] Work Phone: 04-24-2009 influenza virus vaccine, live, attenuated, for intranasal use [facility] 04-25-2008 influenza virus vaccine, live, attenuated, for intranasal use Screen [facility] Work Phone: 05-22-2007 influenza virus vaccine, unspecified formulation Screen [facility] Work Phone: 05-16-2006 influenza virus vaccine, unspecified formulation Screen tr [facility] Work Phone: Payers Date Payer Category Payer Self-pay [id number] 2021 [employer] BLUE ACCE SS PPO [id number] 2021 Unknown [employer] BLUE ACCE SS PPO [id number] 2021-Present [phone] [place] [address] PPO [id number] 2021 Unknown [employer] BLUE ACCE SS PPO [id number] 2021-Present [phone] [id number] 2021 Unknown [id number] 2007 Private Health Insurance [facility] [id number] Unknown [facility] [id number] Unknown [id number] Social History Date Type Detail Facility Start: 05-28-2022 End: 12-23-2023 Tobacco smoking status NHIS Never smoked tobacco [facility] Start: 11-07-2020 End: 02-05-2025 Alcohol intake Current drinker of alcohol (finding) [facility] Start: 06-13-2020 History SDOH Alcohol Frequency 4 [facility] Start: 06-11-2020 End: 06-13-2020 History SDOH Alcohol Std Drinks 1 [facility] Start: 06-11-2020 History SDOH Social Connections Phone 5 [facility] Start: 06-11-2020 History SDOH Social Connections Pentecostal 3 [facility] Start: 06-11-2020 History SDOH Physica l Activity MPS 12 [facility] Start: 06-11-2020 History SDOH Transpo rt Med 2 [facility] Start: 06-11-2020 Education 19 [facility] Start: 1970 Sex Assigned At Female [facility] Start: 11-10-2021 End: 12-11-2021 Exposure to SARS-CoV-2 (event) Not sure [facility] Start: 05-28-2022 End: 12-23-2023 Tobacco use and exposure Smokeless tobacco non-user [facility] Start: 07-28-2022 Tobacco smoking stat us NHIS Unknown if ever smoked [facility] Start: 06-11-2020 End: 01-10-2023 History of Social function [facility] Start: 06-11-2020 End: 01-10-2023 Social connection and isolation panel [facility] Do you belong to any clubs or organizations such as jain groups, unions, fraternal or athletic groups, or school groups? Yes [facility] Are you now , , , , never or living with a partner? [facility] How often to you hav e a drink containing alcohol? 2-3 time sa week [facility] Work Phone: How many standard dr inks containing alcohol do you have on a typical day? 1 or 2 [facility] Work Phone: How often do you hav e 6 or more drinks on 1 occasion? Never [facility] Work Phone: How hard is it for y ou to pay for the very basics like food, housing, medical care, and heating Not hard at all [facility] Do you feel stress - tense, restless, nervous, or anxious, or unable to sleep at night because your mind is troubled all the time - these days [OSQ] Not at all [facility] (I/We) worried luz marina er (my/our) food would run out before (I/we) got money to buy more. Never true [facility] In the past 12 month s, was there a time when you were not able to pay the mortgage or rent on time? No [facility] Start: 06-05-2019 Gender identity Identifies as female gender (finding) [facility] NEGATED: Highlighted row [facility] NEGATED: Highlighted rowStart: JAMEEL History of tobacco use Passive smoker [facility] Goals Date Patient Goal Desired Activity /State Functional Status Date Assessment Result Facility 12-19-2014 Are you deaf, or do you have serious difficulty hearing No 12/19/2014 10:30 AM Kalina Robert LPN No [facility] 12-19-2014 Are you blind, or do you have serious difficulty seeing, even when wearing glasses No 12/19/2014 10:30 AM Kalina Robert LPN No [facility] 12-19-2014 Do you have serious difficulty walking or climbing stairs No 12/19/2014 10:30 AM Kalina Robert LPN No [facility] 12-19-2014 Do you have difficul ty dressing or bathing No 12/19/2014 10:30 AM Kalina Robert LPN No [facility] 12-19-2014 Because of a physica l, mental, or emotional condition, do you have difficulty doing errands alone such as visiting a physician's office or shopping No 12/19/2014 10:30 AM Kalina Robert LPN No [facility] Mental Status Date Assessment Result Facility 08-02-2022 Cognitive function Level Of Cons ciousness Awake;Alert [facility] Work Phone: 08-02-2022 Cognitive function Patient Lilian givens Person;Place;Time [facility] Work Phone: 12-19-2014 Because of a physica l, mental, or emotional condition, do you have serious difficulty concentrating, remembering, or making decisions No 12/19/2014 10:30 AM EDT Kalina Schneider LPN No [facility] Clinical Notes 11-09-2005 to 02-18-2025 Dennys Valentine Mammo Tech - 02/18/2025 2:50 PM EDTTelephone Encounter - Teri Newman PA-C - 02/13/2025 12:27 PM EDTTelephone Encounter - Teri Newman PA-C - 02/13/2025 12:27 PM EDT Note Date & Type Note Facility 02-18-2025 History of Presen t illness Narrative Radiology Service Progress Note PATIENT NAME: Juliann Elliott DATE OF SERVICE: February 18, 2025 TIME: 3:18 PM PATIENT IDENTITY VERIFICATION COMPLETED USING TWO (2) IDENTIFIERS: Name and Date of confirmed by patient verbally. FALL SCREENING: Has the patient had 2 falls in the last year or 1 fall with injury or currently using an Ambulatory Assistive Device (Walker, Cane, Wheelchair, Crutches, etc.)? No PATIENT GENDER DATA: Assigned female at . status: : No status: NO. PATIENT RELEVANT IMPLANT DATA REVIEWED: Not Applicable PATIENT PRESENTS WITH AN IMPLANTABLE OR ATTACHED FEEDER CATCHER TOBACCO: No RADIOLOGY DEPARTMENT: Mammography PERIPHERAL IV DATA: Not applicable SIGNED BY: Yaz Schroeder February 18, 2025 3:18 PM documented in this encounter [facility] 02-18-2025 Note HNO ID: [id number] Author: DENNYS VALENTINE Mammo Tech Service: ? Author Type: Technologist Type: Progress Notes Filed: 02/18/2025 15:18 Note Text: Radiology Service Progress Note PATIENT NAME: Juliann Elliott DATE OF SERVICE: February 18, 2025 TIME: 3:18 PM PATIENT IDENTITY VERIFICATION COMPLETED USING TWO (2) IDENTIFIERS: Name and Date of confirmed by patient verbally. FALL SCREENING: Has the patient had 2 falls in the last year or 1 fall with injury or currently using an Ambulatory Assistive Device (Walker, Cane, Wheelchair, Crutches, etc.)? No PATIENT GENDER DATA: Assigned female at . status: : No status: NO. PATIENT RELEVANT IMPLANT DATA REVIEWED: Not Applicable PATIENT PRESENTS WITH AN IMPLANTABLE OR ATTACHED FEEDER CATCHER TOBACCO: No RADIOLOGY DEPARTMENT: Mammography PERIPHERAL IV DATA: Not applicable SIGNED BY: Yaz Schroeder February 18, 2025 3:18 PM [facility] 02-13-2025 Telephone encounter Note Order placed. [facility] 02-13-2025 Miscellaneous Notes Order placed. Per below pt is needing mammogram order. Order pended please review. Ailyn Machuca LPN Needs mammo order documented in this encounter [facility] 02-13-2025 Telephone encounter Note Per below pt is needing mammogram order. Order pended please review. Ailyn Machuca LPN [facility] 02-12-2025 Telephone encounter Note Needs mammo order [facility] 02-07-2025 Telephone encounter Note Pt notified of Teri's message. Pt verbalizes understanding and will contact office if referral is needed. Ailyn Machuca LPN [facility] 07-24-2025 Miscellaneous Notes Pt notified of Teri's message. Pt verbalizes understanding and will contact office if referral is needed. Ailyn Machuca LPN Best option would be a endoscopy registered nurse. She can check with her insurance to see if that's a covered benefit. Sometimes saturated fats are hidden. A lot of salad dressings and creams have them. Also if she eats more items that are listed as low carb, they may contain more fats. Pt notified of results and instructions. Pt verbalizes understanding. Pt states she exercises daily and is a vegetarian eats salmon, salads etc. States she does not know how to eat any better. Questions if Teri would be willing to call her to discuss or does she need to make an appointment to discuss. Advised her would send message to Teri but she may need to have an appointment to discuss further. Pt verbalizes understanding. Ok to leave vm. Ailyn Machuca LPN Let patient know that her cholesterol has worsened. LDL up to 179 with goal under 100. A1c is normal. Would encourage working on her diet more. Limiting saturated fats. If stays this high, I would encourage medication to limit her risk of cardiovascular disease given family history. We can also see what the coronary calcium score is to further guide our treatment decision. Teri Newman PA-C documented in this encounter [facility] 02-07-2025 Telephone encounter Note Best option would be a endoscopy registered nurse. She can check with her insurance to see if that's a covered benefit. Sometimes saturated fats are hidden. A lot of salad dressings and creams have them. Also if she eats more items that are listed as low carb, they may contain more fats. [facility] 02-07-2025 Telephone encounter Note Pt notified of results and instructions. Pt verbalizes understanding. Pt states she exercises daily and is a vegetarian eats salmon, salads etc. States she does not know how to eat any better. Questions if Teri would be willing to call her to discuss or does she need to make an appointment to discuss. Advised her would send message to Teri but she may need to have an appointment to discuss further. Pt verbalizes understanding. Ok to leave vm. Ailyn Machuca LPN [facility] 02-07-2025 Telephone encounter Note Let patient know that her cholesterol has worsened. LDL up to 179 with goal under 100. A1c is normal. Would encourage working on her diet more. Limiting saturated fats. If stays this high, I would encourage medication to limit her risk of cardiovascular disease given family history. We can also see what the coronary calcium score is to further guide our treatment decision. Teri Newman PA-C [facility] 02-05-2025 Note HNO ID: [id number] Author: TERI NEWMAN PA-C Service: ? Author Type: Physician Piped Buttonhole Machine Operator Type: Progress Notes Filed: 02/05/2025 08:17 Note Text: Chief Complaint Patient presents with: Follow Up: Blood pressure HPI Juliann Elliott is a 54 year old female who presents here today for recheck. Hypertension: - Home blood pressure readings show variability, with higher readings in the morning (e.g., 146/xx mmHg) and lower readings in the afternoon (e.g., 120/83 mmHg). - Attributes higher morning readings to stress from a long drive to work. - Currently taking losartan; reports good tolerance without adverse effects. - Recently received a notice to refill losartan prescription. Hyperlipidemia: - Scheduled for a lipid panel as ordered by Dr. Berman. - Inquires about the potential need for medication if cholesterol levels are elevated. - Family history of heart disease; father of a heart attack at age 52. - Brother, a GP in [place], recommended a heart scan (calcium score) to assess for plaque buildup. Past medical history, appointments, medications, allergies reviewed. 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 Heavy menstrual bleeding 01/10/2014 History of COVID-19 06/14/2020 06/13/2020 Irregular menstrual cycle 06/11/2005 PCB (post coital bleeding) 01/10/2014 Previous Surgical History PAST SURGICAL HISTORY Procedure Laterality Date PAST SURGICAL HISTORY OF 08/16/2008 removal of cervical disc with bone graft, C3-C4 STRESS TEST 08/01/2017 stress echo: WNL TONSILLECTOMY PRIMARY/SECONDARY Tonsillectomy Family History FAMILY HISTORY Problem Relation Age of Onset None Mother other (pulmonary embolism) Mother Coronary Artery Disease Father 52 Hypertension Father Hypertension Brother Cerebral Embolism Maternal Grandmother Diabetes Maternal Grandfather Coronary Artery Disease Paternal Grandfather 40's Alzheimer's Disease No Family History Colon Cancer No Family History Prostate Cancer No Family History Breast Cancer No Family History Ovarian cancer No Family History Uterine Cancer No Family History Hyperlipidemia No Family History Kidney Disease No Family History Seizures No Family History Stroke No Family History Thyroid No Family History Patient Allergies ALLERGIES No Known Allergies Current Medications Current Outpatient Medications on File Prior to Visit Medication Sig losartan (COZAAR) 25 mg tablet Take 1 tablet by mouth once daily. Cholecalciferol, Vitamin D3, (VITAMIN D) 25 mcg (1,000 unit) cap Take 2 capsules by mouth once daily. clonazePAM (KLONOPIN) 0.5 mg tablet Take 1 tablet by mouth two times a day as needed for anxiety. For flying. fexofenadine HCl (SONIA ALLERGY ORAL) Take by mouth once daily. APPLE CIDER VINEGAR ORAL Take by mouth. loratadine (CLARITIN) 10 mg tablet Take 10 mg by mouth once daily. MULTIVITAMIN ORAL Multivitamin preparation Multivitamin [Multivitamins] 1 TAB PO DAILY February 19, 2019 Active 02-19-2019 [facility] ([id number]) No current facility-administered medications on file prior to visit. Social History Social History Tobacco Use Smoking status: Never Passive exposure: Never Smokeless tobacco: Never Vaping Use Vaping status: Never Used Substance Use Topics Alcohol use: Yes Alcohol/week: 7.0 - 10.0 standard drinks of alcohol Types: 7 - 10 Glasses of Wine (5oz) per week Comment: socially Drug use: No Review of Symptoms REVIEW OF SYSTEMS SEE HPI EXAM: BP 127/78 (BP Site: Left Arm, BP Position: Sitting, BP Cuff Size: Regular Adult) Pulse 68 Temp 36.6 ?C (97.8 ?F) Resp 16 Wt 64 kg (141 lb) LMP 09/11/2020 (LMP Unknown) SpO2 99% BMI 24.98 kg/m? General Appearance: Well appearing, alert, in no acute distress, well-hydrated, well nourished.. Health Maintenance List Shingrix Vaccine(1 of 2) Never done Diabetes Screening due on 04/20/2022 Lipid Screening due on 04/20/2024 Mammogram Screening due on 01/30/2025 Influenza Vaccine(1) due on 03/18/2025 Depression Screening due on 12/17/2025 Anxiety Screening due on 12/17/2025 Annual PCP Team Chronic Disease Visit due on 02/05/2026 Cervical Cancer Screening due on 12/11/2026 Colorectal Cancer Screening due on 08/02/2027 DTaP,Tdap,Td Vaccine(3 - Td or Tdap) due on 12/17/2034 Pneumococcal Vaccine: 50+ Completed Hepatitis B Vaccine Discontinued Hepatitis C Screening (more content not included)... [facility] 02-05-2025 History of Presen t illness Narrative Chief Complaint Patient presents with: Follow Up: Blood pressure HPI Juliann Elliott is a 54 year old female who presents here today for recheck. Hypertension: - Home blood pressure readings show variability, with higher readings in the morning (e.g., 146/xx mmHg) and lower readings in the afternoon (e.g., 120/83 mmHg). - Attributes higher morning readings to stress from a long drive to work. - Currently taking losartan; reports good tolerance without adverse effects. - Recently received a notice to refill losartan prescription. Hyperlipidemia: - Scheduled for a lipid panel as ordered by Dr. Berman. - Inquires about the potential need for medication if cholesterol levels are elevated. - Family history of heart disease; father of a heart attack at age 52. - Brother, a GP in [place], recommended a heart scan (calcium score) to assess for plaque buildup. Past medical history, appointments, medications, allergies reviewed. 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 Heavy menstrual bleeding 01/10/2014 History of COVID-19 06/14/2020 06/13/2020 Irregular menstrual cycle 06/11/2005 PCB (post coital bleeding) 01/10/2014 Previous Surgical History PAST SURGICAL HISTORY Procedure Laterality Date PAST SURGICAL HISTORY OF 08/16/2008 removal of cervical disc with bone graft, C3-C4 STRESS TEST 08/01/2017 stress echo: WNL TONSILLECTOMY PRIMARY/SECONDARY <AGE 12 Tonsillectomy Family History FAMILY HISTORY Problem Relation Age of Onset None Mother other (pulmonary embolism) Mother Coronary Artery Disease Father 52 Hypertension Father Hypertension Brother Cerebral Embolism Maternal Grandmother Diabetes Maternal Grandfather Coronary Artery Disease Paternal Grandfather 40's Alzheimer's Disease No Family History Colon Cancer No Family History Prostate Cancer No Family History Breast Cancer No Family History Ovarian cancer No Family History Uterine Cancer No Family History Hyperlipidemia No Family History Kidney Disease No Family History Seizures No Family History Stroke No Family History Thyroid No Family History Patient Allergies ALLERGIES No Known Allergies Current Medications Current Outpatient Medications on File Prior to Visit Medication Sig losartan (COZAAR) 25 mg tablet Take 1 tablet by mouth once daily. Cholecalciferol, Vitamin D3, (VITAMIN D) 25 mcg (1,000 unit) cap Take 2 capsules by mouth once daily. clonazePAM (KLONOPIN) 0.5 mg tablet Take 1 tablet by mouth two times a day as needed for anxiety. For flying. fexofenadine HCl (SONIA ALLERGY ORAL) Take by mouth once daily. APPLE CIDER VINEGAR ORAL Take by mouth. loratadine (CLARITIN) 10 mg tablet Take 10 mg by mouth once daily. MULTIVITAMIN ORAL Multivitamin preparation Multivitamin [Multivitamins] 1 TAB PO DAILY February 19, 2019 Active 02-19-2019 [facility] ([id number]) No current facility-administered medications on file prior to visit. Social History Social History Tobacco Use Smoking status: Never Passive exposure: Never Smokeless tobacco: Never Vaping Use Vaping status: Never Used Substance Use Topics Alcohol use: Yes Alcohol/week: 7.0 - 10.0 standard drinks of alcohol Types: 7 - 10 Glasses of Wine (5oz) per week Comment: socially Drug use: No Review of Symptoms REVIEW OF SYSTEMS SEE HPI EXAM: BP 127/78 (BP Site: Left Arm, BP Position: Sitting, BP Cuff Size: Regular Adult) Pulse 68 Temp 36.6 C (97.8 F) Resp 16 Wt 64 kg (141 lb) LMP 09/11/2020 (LMP Unknown) SpO2 99% BMI 24.98 kg/m General Appearance: Well appearing, alert, in no acute distress, well-hydrated, well nourished.. Health Maintenance List Shingrix Vaccine(1 of 2) Never done Diabetes Screening due on 04/20/2022 Lipid Screening due on 04/20/2024 Mammogram Screening due on 01/30/2025 Influenza Vaccine(1) due on 03/18/2025 Depression Screening due on 12/17/2025 Anxiety Screening due on 12/17/2025 Annual PCP Team Chronic Disease Visit due on 02/05/2026 Cervical Cancer Screening due on 12/11/2026 Colorectal Cancer Screening due on 08/02/2027 DTaP,Tdap,Td Vaccine(3 - Td or Tdap) due on 12/17/2034 Pneumococcal Vaccine: 50+ Completed Hepatitis B Vaccine Discontinued Hepatitis C Screening Discontinued HIV Screening Discontinued Covid-19 Vaccine Discontinued Data reviewed Assessment and Plan 1. Essential (primary) hypertension (I10) - Blood pressure readings show variability; initial reading today was 146/87 mmHg, followed by a lower reading of 127/77 mmHg. - Home readings also show fluctuations, with higher readings in the morning while feeling more stressed and lower in the afternoon when more relaxed. - Currently managed with losartan, which is well-tolerated. - Refilled losartan prescription and switched to a 90-day supply. - Continue monitoring blood pressure at home, Consider an adjustment in the future if elevated readings are increasing. 2. Encounter for screening for cardiovascular disorders (Z13.6) - Ordered lipid panel to assess cholesterol levels. - Discussed potential need for statin therapy depending on lipid panel results and risk factors. - Ordered coronary artery calcium (CAC) score to assess for plaque buildup. - Patient to schedule CAC score test; provided information on scheduling. 3. Family history of ischemic heart disease (Z82.49) - Significant family history with father at 52 years old due to a heart attack. - Discussed the importance of managing risk factors including hypertension and cholesterol levels. Teri Newman PA-C Recording using [employer] software for draft documentation of the visit was discussed with the patient/authorized employee's representative; all questions welcomed and answered. Patient/authorized employee's representative agreed to proceed documented in this encounter [facility] 01-08-2025 Note HNO ID: [id number] Author: TERI NEWMAN PA-C Service: ? Author Type: Physician Piped Buttonhole Machine Operator Type: Progress Notes Filed: 01/08/2025 08:11 Note Text: Chief Complaint Patient presents with: Follow Up: Blood pressure HPI Juliann Elliott is a 54 year old female who presents here today for Above Complaints.. Hypertension: - Home blood pressure readings over the past two weeks: - 139/90 mmHg - 140/95 mmHg - 139/90 mmHg - 140/89 mmHg - 129/77 mmHg - 116/82 mmHg - 106/77 mmHg - 132/76 mmHg - 126/78 mmHg - Noted that lower readings are typically in the afternoon. - Checks blood pressure at work, not immediately upon waking. - Family history: Father of a myocardial infarction at age 52; mother has hypertension. - Engages in regular exercise, including walking and working out. - Follows a vegetarian diet. - Consumes one glass of wine per night, with additional 2-3 glasses on weekends. 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 Past medical history, appointments, medications, allergies reviewed. 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 Heavy menstrual bleeding 01/10/2014 History of COVID-19 06/14/2020 06/13/2020 Irregular menstrual cycle 06/11/2005 PCB (post coital bleeding) 01/10/2014 Previous Surgical History PAST SURGICAL HISTORY Procedure Laterality Date PAST SURGICAL HISTORY OF 08/16/2008 removal of cervical disc with bone graft, C3-C4 STRESS TEST 08/01/2017 stress echo: WNL TONSILLECTOMY PRIMARY/SECONDARY Tonsillectomy Family History FAMILY HISTORY Problem Relation Age of Onset None Mother other (pulmonary embolism) Mother Coronary Artery Disease Father 52 Hypertension Father Hypertension Brother Cerebral Embolism Maternal Grandmother Diabetes Maternal Grandfather Coronary Artery Disease Paternal Grandfather 40's Alzheimer's Disease No Family History Colon Cancer No Family History Prostate Cancer No Family History Breast Cancer No Family History Ovarian cancer No Family History Uterine Cancer No Family History Hyperlipidemia No Family History Kidney Disease No Family History Seizures No Family History Stroke No Family History Thyroid No Family History Patient Allergies ALLERGIES No Known Allergies Current Medications Current Outpatient Medications on File Prior to Visit Medication Sig Cholecalciferol, Vitamin D3, (VITAMIN D) 25 mcg (1,000 unit) cap Take 2 capsules by mouth once daily. clonazePAM (KLONOPIN) 0.5 mg tablet Take 1 tablet by mouth two times a day as needed for anxiety. For flying. fexofenadine HCl (SONIA ALLERGY ORAL) Take by mouth once daily. APPLE CIDER VINEGAR ORAL Take by mouth. loratadine (CLARITIN) 10 mg tablet Take 10 mg by mouth once daily. MULTIVITAMIN ORAL Multivitamin preparation Multivitamin [Multivitamins] 1 TAB PO DAILY February 19, 2019 Active 02-19-2019 [facility] ([id number]) No current facility-administered medications on file prior to visit. Social History Social History Tobacco Use Smoking status: Never Passive exposure: Never Smokeless tobacco: Never Vaping Use Vaping status: Never Used Substance Use Topics Alcohol use: Yes Alcohol/week: 7.0 - 10.0 standard drinks of alcohol Types: 7 - 10 Glasses of Wine (5oz) per week Comment: socially Drug use: No Review of Symptoms REVIEW OF SYSTEMS SEE HPI EXAM: BP 148/89 (BP Site: Left Arm, BP Position: Sitting, BP Cuff Size: Regular Adult) Pulse 76 Temp 36.9 ?C (98.4 ?F) Resp 16 Wt 63 kg (139 lb) LMP 09/11/2020 (LMP Unknown) SpO2 98% BMI 24.62 kg/m? General Appearance: Well appearing, alert, in no acute distress, well-hydrated, well nourished.. Health Maintenance List Shingrix Vaccine(1 of 2) Never done Diabetes Screening due on 04/20/2022 Lipid Screening due on 04/20/2024 Mammogram Screening due on 01/30/2025 Influenza Vaccine(Season Ended) due on 03/18/2025 Depression Screening due on 12/17/2025 Anxiety Screening due on 12/17/2025 Cervical Cancer Screening due on 12/11/2026 Colorectal Cancer Screening due on 08/02/2027 DTaP,Tdap,Td Vaccine(3 - Td or Tdap) due on 12/17/2034 Pneumococcal Vaccine: 50+ Completed Hepatitis B Vaccine Discontinued Hepatitis C Screening Discontinued HIV Screening Discontinued Covid-19 Vaccine Discontinued Data reviewed N/a Assessment and Plan 1. Hypertension, essential (I10) - Blood (more content not included)... [facility] 01-08-2025 History of Presen t illness Narrative Chief Complaint Patient presents with: Follow Up: Blood pressure HPI Juliann Elliott is a 54 year old female who presents here today for Above Complaints.. Hypertension: - Home blood pressure readings over the past two weeks: - 139/90 mmHg - 140/95 mmHg - 139/90 mmHg - 140/89 mmHg - 129/77 mmHg - 116/82 mmHg - 106/77 mmHg - 132/76 mmHg - 126/78 mmHg - Noted that lower readings are typically in the afternoon. - Checks blood pressure at work, not immediately upon waking. - Family history: Father of a myocardial infarction at age 52; mother has hypertension. - Engages in regular exercise, including walking and working out. - Follows a vegetarian diet. - Consumes one glass of wine per night, with additional 2-3 glasses on weekends. 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 Past medical history, appointments, medications, allergies reviewed. 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 Heavy menstrual bleeding 01/10/2014 History of COVID-19 06/14/2020 06/13/2020 Irregular menstrual cycle 06/11/2005 PCB (post coital bleeding) 01/10/2014 Previous Surgical History PAST SURGICAL HISTORY Procedure Laterality Date PAST SURGICAL HISTORY OF 08/16/2008 removal of cervical disc with bone graft, C3-C4 STRESS TEST 08/01/2017 stress echo: WNL TONSILLECTOMY PRIMARY/SECONDARY <AGE 12 Tonsillectomy Family History FAMILY HISTORY Problem Relation Age of Onset None Mother other (pulmonary embolism) Mother Coronary Artery Disease Father 52 Hypertension Father Hypertension Brother Cerebral Embolism Maternal Grandmother Diabetes Maternal Grandfather Coronary Artery Disease Paternal Grandfather 40's Alzheimer's Disease No Family History Colon Cancer No Family History Prostate Cancer No Family History Breast Cancer No Family History Ovarian cancer No Family History Uterine Cancer No Family History Hyperlipidemia No Family History Kidney Disease No Family History Seizures No Family History Stroke No Family History Thyroid No Family History Patient Allergies ALLERGIES No Known Allergies Current Medications Current Outpatient Medications on File Prior to Visit Medication Sig Cholecalciferol, Vitamin D3, (VITAMIN D) 25 mcg (1,000 unit) cap Take 2 capsules by mouth once daily. clonazePAM (KLONOPIN) 0.5 mg tablet Take 1 tablet by mouth two times a day as needed for anxiety. For flying. fexofenadine HCl (SONIA ALLERGY ORAL) Take by mouth once daily. APPLE CIDER VINEGAR ORAL Take by mouth. loratadine (CLARITIN) 10 mg tablet Take 10 mg by mouth once daily. MULTIVITAMIN ORAL Multivitamin preparation Multivitamin [Multivitamins] 1 TAB PO DAILY February 19, 2019 Active 02-19-2019 [facility] ([id number]) No current facility-administered medications on file prior to visit. Social History Social History Tobacco Use Smoking status: Never Passive exposure: Never Smokeless tobacco: Never Vaping Use Vaping status: Never Used Substance Use Topics Alcohol use: Yes Alcohol/week: 7.0 - 10.0 standard drinks of alcohol Types: 7 - 10 Glasses of Wine (5oz) per week Comment: socially Drug use: No Review of Symptoms REVIEW OF SYSTEMS SEE HPI EXAM: BP 148/89 (BP Site: Left Arm, BP Position: Sitting, BP Cuff Size: Regular Adult) Pulse 76 Temp 36.9 C (98.4 F) Resp 16 Wt 63 kg (139 lb) LMP 09/11/2020 (LMP Unknown) SpO2 98% BMI 24.62 kg/m General Appearance: Well appearing, alert, in no acute distress, well-hydrated, well nourished.. Health Maintenance List Shingrix Vaccine(1 of 2) Never done Diabetes Screening due on 04/20/2022 Lipid Screening due on 04/20/2024 Mammogram Screening due on 01/30/2025 Influenza Vaccine(Season Ended) due on 03/18/2025 Depression Screening due on 12/17/2025 Anxiety Screening due on 12/17/2025 Cervical Cancer Screening due on 12/11/2026 Colorectal Cancer Screening due on 08/02/2027 DTaP,Tdap,Td Vaccine(3 - Td or Tdap) due on 12/17/2034 Pneumococcal Vaccine: 50+ Completed Hepatitis B Vaccine Discontinued Hepatitis C Screening Discontinued HIV Screening Discontinued Covid-19 Vaccine Discontinued Data reviewed N/a Assessment and Plan 1. Hypertension, essential (I10) - Blood pressure readings over the past two weeks have shown variability, with some readings in the 130s-140s systolic and others as low as 106/77 mmHg. - Family history significant for father's sudden cardiac at age 52 and mother's hypertension. - Discussed the benefits and potential side effects of initiating antihypertensive medication. - Prescribed Losartan 25 mg orally once daily in the morning; common side effects include lightheadedness and dizziness. - Advised patient to monitor for side effects, particularly during the first few days of treatment. - Discussed lifestyle modifications, including maintaining a low-sodium diet and regular exercise. - Patient consumes one glass of wine per day, which is not considered excessive; advised that complete cessation of alcohol may or may not improve blood pressure. - Follow-up appointment scheduled in 4 weeks to assess response to medication and review home blood pressure readings. Teri Newman PA-C Recording using [employer] software for draft documentation of the visit was discussed with the patient/authorized employee's representative; all questions welcomed and answered. Patient/authorized employee's representative agreed to proceed documented in this encounter [facility] 12-17-2024 Instructions Dany Berman MD - 12/17/2024 10:14 AM EDT Please get a home BP cuff and check your BP once a day (morning, Afternoon, evening) record the readings and bring them with your BP cuff to BP office check. Please get labs test done on or after 12/06/2025 prior to your next visit. documented in this encounter [facility] 12-17-2024 History of Presen t illness Narrative Chief Complaint Patient presents with: Physical HPI Juliann Elliott is a 54 year old female who presents here today for Physical/re-establish. Patient sees GRILL PREP COOK last visit 12/2023 Patient has a fear of flying and this is treated with prn klonopin. Patient has been doing ok. Last seen us in 2019. No new issues or concerns. Past medical history, appointments, medications, allergies reviewed. 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 Heavy menstrual bleeding 01/10/2014 Irregular menstrual cycle 06/11/2005 PCB (post coital bleeding) 01/10/2014 Previous Surgical History PAST SURGICAL HISTORY Procedure Laterality Date PAST SURGICAL HISTORY OF 08/16/2008 removal of cervical disc with bone graft, C3-C4 STRESS TEST 08/01/2017 stress echo: WNL TONSILLECTOMY PRIMARY/SECONDARY <AGE 11 Tonsillectomy Family History FAMILY HISTORY Problem Relation Age of Onset None Mother other (pulmonary embolism) Mother Coronary Artery Disease Father 52 Hypertension Father Hypertension Brother Cerebral Embolism Maternal Grandmother Diabetes Maternal Grandfather Coronary Artery Disease Paternal Grandfather 40's Alzheimer's Disease No Family History Colon Cancer No Family History Prostate Cancer No Family History Breast Cancer No Family History Ovarian cancer No Family History Uterine Cancer No Family History Hyperlipidemia No Family History Kidney Disease No Family History Seizures No Family History Stroke No Family History Thyroid No Family History Patient Allergies ALLERGIES No Known Allergies Current Medications Current Outpatient Medications on File Prior to Visit Medication Sig clonazePAM (KLONOPIN) 0.5 mg tablet Take 1 tablet by mouth two times a day as needed for anxiety. For flying. clonazePAM (KLONOPIN) 0.5 mg tablet Take 1 tablet by mouth twice daily as needed for anxiety. For flying. fexofenadine HCl (SONIA ALLERGY ORAL) Take by mouth once daily. cholecalciferol, vitamin D3, (VITAMIN D3 ORAL) Take by mouth. (Patient not taking: Reported on 05/28/2022) APPLE CIDER VINEGAR ORAL Take by mouth. loratadine (CLARITIN) 10 mg tablet Take 10 mg by mouth once daily. MULTIVITAMIN ORAL Multivitamin preparation Multivitamin [Multivitamins] 1 TAB PO DAILY February 19, 2019 Active 02-19-2019 [facility] ([id number]) No current facility-administered medications on file prior to visit. Social History Social History Tobacco Use Smoking status: Never Passive exposure: Never Smokeless tobacco: Never Vaping Use Vaping status: Never Used Substance Use Topics Alcohol use: Yes Alcohol/week: 7.0 - 10.0 standard drinks of alcohol Types: 7 - 10 Glasses of Wine (5oz) per week Comment: socially Drug use: No Review of Symptoms REVIEW OF SYSTEMS GENERAL: No unintentional weight loss, malaise or fevers HEENT: Negative for frequent or significant headaches, No changes in hearing or vision, no nose bleeds or other nasal problems NECK: Negative for lumps, goiter, pain and significant neck swelling RESPIRATORY: Negative for cough, hemoptysis, wheezing, COPD, dyspnea or shortness of breath CARDIOVASCULAR: Negative for chest pain, leg swelling, hypertension, CHF or palpitations GI: No nausea, vomiting, or diarrhea, No heartburn or reflux symptoms, and no blood. : No history of dysuria, frequency or blood. MUSCULOSKELETAL: some pain in th right elbow since starting cross fit. SKIN: Negative for lesions, rash, and itching PSYCH: Negative for sleep disturbance, mood disorder and recent psychosocial stressors HEMATOLOGY/LYMPHOLOGY: Negative for prolonged bleeding, bruising easily or swollen nodes ENDOCRINE: Negative for cold or heat intolerance, polyuria, polydipsia and goiter NEURO: No history of headaches, syncope, paralysis, seizures or tremors SEE HPI EXAM: BP 160/100 Pulse 65 Resp 16 Ht 160 cm (5' 3) Wt 63.5 kg (140 lb) LMP 09/11/2020 (LMP Unknown) SpO2 99% BMI 24.80 kg/m BP 158/102 Pulse 65 Resp 16 Ht 160 cm (5' 3) Wt 63.5 kg (140 lb) LMP 09/11/2020 (LMP Unknown) SpO2 99% BMI 24.80 kg/m Last 5 Encounter Wt Readings: Date: Wt: 12/17/2024 63.5 kg (140 lb) 10/06/2024 65.9 kg (145 lb 4.5 oz) 12/23/2023 62.3 kg (137 lb 6.4 oz) 07/27/2022 59.9 kg (132 lb) 07/13/2022 60.3 kg (133 lb) General Appearance: Well appearing, alert, in no acute distress, well-hydrated, well nourished.. Skin: Skin color, texture, turgor normal, no suspicious rashes or lesions. Head: Normocephalic, no masses, lesions, tenderness or abnormalities. Eyes: Anicteric sclera. Pupils are equally round and reactive to light. Extraocular movements are intact. . Ears: External ears, TM's normal, canals clear. Nose/Sinuses: Nares normal, septum midline, mucosa normal, no drainage or sinus tenderness. Oropharynx: Lips, mucosa, and tongue normal, teeth and gums normal, oropharynx normal. Neck: Supple, no adenopathy; thyroid symmetric, normal size, no bruits. Lungs: Lungs clear to auscultation. No wheezing, rhonchi, rales.. Heart: RRR without murmur, gallop, or rubs. No ectopy. Abdomen: Normal abdominal exam, Abdomen soft, non-tender. Bowel sounds normal. No masses, organomegaly. Extremities: No deformities, edema, skin discoloration, clubbing or cyanosis. Good capillary refill. . Musculoskeletal: Spine range of motion normal. Muscular strength intact, No joint swelling, deformity, or tenderness. Peripheral Pulses: Normal. Neurologic: Gait normal. Reflexes normal and symmetric. Sensation to light touch and crainal nerves 2-12 intact.. Health Maintenance List Depression Screening Never done Anxiety Screening Never done Hepatitis C Screening Never done HIV Screening Never done Hepatitis B Vaccine(1 of 3 - 19+ 3-dose series) Never done Shingrix Vaccine(1 of 2) Never done Pneumococcal Vaccine: 50+(1 of 1 - PCV) Never done DTaP,Tdap,Td Vaccine(2 - Td or Tdap) due on 03/10/2020 Diabetes Screening due on 04/20/2022 Colorectal Cancer Screening due on 08/02/2023 Covid-19 Vaccine( season) due on 03/18/2024 Lipid Screening due on 04/20/2024 Mammogram Screening due on 01/30/2025 Influenza Vaccine(Season Ended) due on 03/18/2025 Cervical Cancer Screening due on 12/11/2026 Data reviewed Assessment and Plan ASSESSMENT/PLAN: 1. Well adult exam - ICD9: V70.0, ICD10: Z00.00 (primary diagnosis) - Counseled on healthy diet and regular exercise - Patient counseled on and acknowledged vaccine benefits/risks/side effects; VIS provided: Pneumococcal and TdaP - Follow up for annual exam in one year - HEMOGLOBIN A1C - LIPID PANEL, NONFASTING 2. 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 3. Elevated BP without diagnosis of hypertension - ICD9: 796.2, ICD10: R03.0 - no associated symptoms - Encouraged dietary sodium restriction/DASH diet - Recommended regular aerobic exercise. - Recommend home blood pressure monitoring, to bring results in on next visit. Patient to get a home BP cuff. - Recheck in 3 weeks, sooner if needed. - Goal of BP <130/80 4. Displacement 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 - ICD9: 722.0, ICD10: M50.20 - no active clinical issues. 5. Encounter for lipid screening for cardiovascular disease - ICD9: V77.91, V81.2, ICD10: Z13.220, Z13.6 Check - LIPID PANEL, NONFASTING 6. Encounter for screening for diabetes mellitus - ICD9: V77.1, ICD10: Z13.1 Check - HEMOGLOBIN A1C 7. Screening for depression - ICD9: V79.0, ICD10: Z13.31 - DEPRESSION SCREENING 8. Encounter for screening examination for other mental health and behavioral disorders - ICD9: V79.8, ICD10: Z13.39 - ANXIETY SCREENING 9. Need for vaccination - ICD9: V05.9, ICD10: Z23 - TDAP VACCINE, AGE 7+ YR (ADACEL, BOOSTRIX): given - PNEUMOCOCCAL VACCINE, 20 VALENT (PREVNAR 20): given Will bring back for [place] for shingrix series. F/u HTN check in 3 week. Patient to get BP cuff and check BP's and bring in readings a cuff to 3 week f/u F/u in a year WAE check Lipids ad A1c prior Dany Berman MD documented in this encounter [facility] 12-17-2024 Note HNO ID: [id number] Author: DANY BERMAN MD Service: ? Author Type: Physician Type: Progress Notes Filed: 12/17/2024 12:32 Note Text: Chief Complaint Patient presents with: Physical HPI Juliann Elliott is a 54 year old female who presents here today for Physical/re-establish. Patient sees GRILL PREP COOK last visit 12/2023 Patient has a fear of flying and this is treated with prn klonopin. Patient has been doing ok. Last seen us in 2019. No new issues or concerns. Past medical history, appointments, medications, allergies reviewed. 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 Heavy menstrual bleeding 01/10/2014 Irregular menstrual cycle 06/11/2005 PCB (post coital bleeding) 01/10/2014 Previous Surgical History PAST SURGICAL HISTORY Procedure Laterality Date PAST SURGICAL HISTORY OF 08/16/2008 removal of cervical disc with bone graft, C3-C4 STRESS TEST 08/01/2017 stress echo: WNL TONSILLECTOMY PRIMARY/SECONDARY Tonsillectomy Family History FAMILY HISTORY Problem Relation Age of Onset None Mother other (pulmonary embolism) Mother Coronary Artery Disease Father 52 Hypertension Father Hypertension Brother Cerebral Embolism Maternal Grandmother Diabetes Maternal Grandfather Coronary Artery Disease Paternal Grandfather 40's Alzheimer's Disease No Family History Colon Cancer No Family History Prostate Cancer No Family History Breast Cancer No Family History Ovarian cancer No Family History Uterine Cancer No Family History Hyperlipidemia No Family History Kidney Disease No Family History Seizures No Family History Stroke No Family History Thyroid No Family History Patient Allergies ALLERGIES No Known Allergies Current Medications Current Outpatient Medications on File Prior to Visit Medication Sig clonazePAM (KLONOPIN) 0.5 mg tablet Take 1 tablet by mouth two times a day as needed for anxiety. For flying. clonazePAM (KLONOPIN) 0.5 mg tablet Take 1 tablet by mouth twice daily as needed for anxiety. For flying. fexofenadine HCl (SONIA ALLERGY ORAL) Take by mouth once daily. cholecalciferol, vitamin D3, (VITAMIN D3 ORAL) Take by mouth. (Patient not taking: Reported on 05/28/2022) APPLE CIDER VINEGAR ORAL Take by mouth. loratadine (CLARITIN) 10 mg tablet Take 10 mg by mouth once daily. MULTIVITAMIN ORAL Multivitamin preparation Multivitamin [Multivitamins] 1 TAB PO DAILY February 19, 2019 Active 02-19-2019 [facility] ([id number]) No current facility-administered medications on file prior to visit. Social History Social History Tobacco Use Smoking status: Never Passive exposure: Never Smokeless tobacco: Never Vaping Use Vaping status: Never Used Substance Use Topics Alcohol use: Yes Alcohol/week: 7.0 - 10.0 standard drinks of alcohol Types: 7 - 10 Glasses of Wine (5oz) per week Comment: socially Drug use: No Review of Symptoms REVIEW OF SYSTEMS GENERAL: No unintentional weight loss, malaise or fevers HEENT: Negative for frequent or significant headaches, No changes in hearing or vision, no nose bleeds or other nasal problems NECK: Negative for lumps, goiter, pain and significant neck swelling RESPIRATORY: Negative for cough, hemoptysis, wheezing, COPD, dyspnea or shortness of breath CARDIOVASCULAR: Negative for chest pain, leg swelling, hypertension, CHF or palpitations GI: No nausea, vomiting, or diarrhea, No heartburn or reflux symptoms, and no blood. : No history of dysuria, frequency or blood. MUSCULOSKELETAL: some pain in th right elbow since starting cross fit. SKIN: Negative for lesions, rash, and itching PSYCH: Negative for sleep disturbance, mood disorder and recent psychosocial stressors HEMATOLOGY/LYMPHOLOGY: Negative for prolonged bleeding, bruising easily or swollen nodes ENDOCRINE: Negative for cold or heat intolerance, polyuria, polydipsia and goiter NEURO: No history of headaches, syncope, paralysis, seizures or tremors SEE HPI EXAM: BP 160/100 Pulse 65 Resp 16 Ht 160 cm (5' 3) Wt 63.5 kg (140 lb) LMP 09/11/2020 (LMP Unknown) SpO2 99% BMI 24.80 kg/m? BP 158/102 Pulse 65 Resp 16 Ht 160 cm (5' 3) Wt 63.5 kg (140 lb) LMP 09/11/2020 (LMP Unknown) SpO2 99% BMI 24.80 kg/m? Last 5 Encounter Wt Readings: Date: Wt: 12/17/2024 63.5 kg (140 lb) 10/06/2024 65.9 kg (145 lb 4.5 oz) 12/23/2023 62.3 kg (137 lb 6.4 oz) 07/27/2022 59.9 kg (132 lb) 07/13/2022 60.3 kg (133 lb) General Appearance: Well ap (more content not included)... [facility] 11-16-2024 Telephone encounter Note Contacted patient and scheduled. Jennifer Lee MA [facility] 11-16-2024 Miscellaneous Notes Contacted patient and scheduled. Jennifer Lee MA Patient calls to set up an appointment to see Dr. Berman for general health. Reports when had mom (Sarah) in office was given the ok. No notes in patient chart. Please verify and call patient back at [phone]. Patient asking to speak to Roxanne. Ernesto Munoz RN documented in this encounter [facility] 11-15-2024 Telephone encounter Note Patient calls to set up an appointment to see Dr. Berman for general health. Reports when had mom (Sarah) in office was given the ok. No notes in patient chart. Please verify and call patient back at [phone]. Patient asking to speak to Roxanne. Ernesto Munoz RN [facility] 10-06-2024 Note HNO ID: [id number] Author: ALEA VERGARA PA Service: ? 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 Patient presents with: Sinus Problem HPI 54-year-old female presents for sinus congestion, cough x 4 to 5 days. Patient states she has had nasal congestion for the past several days, she states last night she had a lot of sinus pressure and crackling in her sinuses. She also has ear pressure. She has a little bit of a cough. No fevers. No vomiting or diarrhea. No chest pain or shortness of breath. No other complaint. 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 Heavy menstrual bleeding 01/10/2014 Irregular menstrual cycle 06/11/2005 PCB (post coital bleeding) 01/10/2014 PAST SURGICAL HISTORY Procedure Laterality Date PAST SURGICAL HISTORY OF 08/16/2008 removal of cervical disc with bone graft, C3-C4 STRESS TEST 08/01/2017 stress echo: WNL TONSILLECTOMY PRIMARY/SECONDARY Tonsillectomy ALLERGIES Patient has no known allergies. MEDICATIONS [START ON 10/08/2024] amoxicillin-clavulanate potassium (AUGMENTIN) 875-125 mg per tablet Take 1 tablet by mouth two times a day for 5 days. Patient should start on October 08, 2024. clonazePAM (KLONOPIN) 0.5 mg tablet Take 1 tablet by mouth two times a day as needed for anxiety. For flying. clonazePAM (KLONOPIN) 0.5 mg tablet Take 1 tablet by mouth twice daily as needed for anxiety. For flying. fexofenadine HCl (SONIA ALLERGY ORAL) Take by mouth once daily. cholecalciferol, vitamin D3, (VITAMIN D3 ORAL) Take by mouth. (Patient not taking: Reported on 05/28/2022) APPLE CIDER VINEGAR ORAL Take by mouth. loratadine (CLARITIN) 10 mg tablet Take 10 mg by mouth once daily. MULTIVITAMIN ORAL Multivitamin preparation Multivitamin [Multivitamins] 1 TAB PO DAILY February 19, 2019 Active 02-19-2019 [facility] ([id number]) FAMILY HISTORY Problem Relation Age of Onset None Mother other (pulmonary embolism) Mother Coronary Artery Disease Father 52 Hypertension Father Hypertension Brother Cerebral Embolism Maternal Grandmother Diabetes Maternal Grandfather Coronary Artery Disease Paternal Grandfather 40's Alzheimer's Disease No Family History Colon Cancer No Family History Prostate Cancer No Family History Breast Cancer No Family History Ovarian cancer No Family History Uterine Cancer No Family History Hyperlipidemia No Family History Kidney Disease No Family History Seizures No Family History Stroke No Family History Thyroid No Family History Social History Tobacco Use Smoking status: Never Passive exposure: Never Smokeless tobacco: Never Vaping Use Vaping status: Never Used Substance Use Topics Alcohol use: Yes Alcohol/week: 7.0 - 10.0 standard drinks of alcohol Types: 7 - 10 Glasses of Wine (5oz) per week Comment: socially Drug use: No Review of Systems Constitutional: Negative for chills and fever. HENT: Positive for congestion, sinus pressure and sinus pain. Negative for ear pain and sore throat. Respiratory: Positive for cough. Negative for shortness of breath. Cardiovascular: Negative for chest pain. Gastrointestinal: Negative for diarrhea and vomiting. Objective BP 156/110 Pulse 71 Temp 36.6 ?C (97.9 ?F) Resp 16 Wt 65.9 kg (145 lb 4.5 oz) LMP 09/11/2020 (LMP Unknown) SpO2 97% BMI 26.15 kg/m? Physical Exam Vitals and nursing note reviewed. Constitutional: General: She is not in acute distress. Appearance: Normal appearance. She is not toxic-appearing. HENT: Right Ear: Tympanic membrane and ear canal normal. Left Ear: Tympanic membrane and ear canal normal. Nose: Mucosal edema and congestion present. Mouth/Throat: Mouth: Mucous membranes are moist. Eyes: Conjunctiva/sclera: Conjunctivae normal. Cardiovascular: Rate and Rhythm: Normal rate and regular rhythm. Pulmonary: Effort: Pulmonary effort is normal. Breath sounds: Normal breath sounds. Skin: General: Skin is warm and dry. Neurological: Mental Status: She is alert. {ASSESSMENT/PLAN: 1. URI, acute - ICD9: 465.9, ICD10: J06.9 (primary diagnosis) - Discussed viral etiology and rationale for treatment. - Symptomatic treatment with prn analgesia - Supportive care with fluids and rest 2. Sinus congestion - ICD9: 478.19, ICD10: R09.81 -Suspect viral -Recommend Flonase nasal spray -Due to elev (more content not included)... [facility] 10-06-2024 History of Presen t illness Narrative [facility] Subjective Juliann Elliott is a 54 year old female. Patient presents with: Sinus Problem HPI 54-year-old female presents for sinus congestion, cough x 4 to 5 days. Patient states she has had nasal congestion for the past several days, she states last night she had a lot of sinus pressure and crackling in her sinuses. She also has ear pressure. She has a little bit of a cough. No fevers. No vomiting or diarrhea. No chest pain or shortness of breath. No other complaint. 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 Heavy menstrual bleeding 01/10/2014 Irregular menstrual cycle 06/11/2005 PCB (post coital bleeding) 01/10/2014 PAST SURGICAL HISTORY Procedure Laterality Date PAST SURGICAL HISTORY OF 08/16/2008 removal of cervical disc with bone graft, C3-C4 STRESS TEST 08/01/2017 stress echo: WNL TONSILLECTOMY PRIMARY/SECONDARY <AGE 12 Tonsillectomy ALLERGIES Patient has no known allergies. MEDICATIONS [START ON 10/08/2024] amoxicillin-clavulanate potassium (AUGMENTIN) 875-125 mg per tablet Take 1 tablet by mouth two times a day for 5 days. Patient should start on October 08, 2024. clonazePAM (KLONOPIN) 0.5 mg tablet Take 1 tablet by mouth two times a day as needed for anxiety. For flying. clonazePAM (KLONOPIN) 0.5 mg tablet Take 1 tablet by mouth twice daily as needed for anxiety. For flying. fexofenadine HCl (SONIA ALLERGY ORAL) Take by mouth once daily. cholecalciferol, vitamin D3, (VITAMIN D3 ORAL) Take by mouth. (Patient not taking: Reported on 05/28/2022) APPLE CIDER VINEGAR ORAL Take by mouth. loratadine (CLARITIN) 10 mg tablet Take 10 mg by mouth once daily. MULTIVITAMIN ORAL Multivitamin preparation Multivitamin [Multivitamins] 1 TAB PO DAILY February 19, 2019 Active 02-19-2019 [facility] ([id number]) FAMILY HISTORY Problem Relation Age of Onset None Mother other (pulmonary embolism) Mother Coronary Artery Disease Father 52 Hypertension Father Hypertension Brother Cerebral Embolism Maternal Grandmother Diabetes Maternal Grandfather Coronary Artery Disease Paternal Grandfather 40's Alzheimer's Disease No Family History Colon Cancer No Family History Prostate Cancer No Family History Breast Cancer No Family History Ovarian cancer No Family History Uterine Cancer No Family History Hyperlipidemia No Family History Kidney Disease No Family History Seizures No Family History Stroke No Family History Thyroid No Family History Social History Tobacco Use Smoking status: Never Passive exposure: Never Smokeless tobacco: Never Vaping Use Vaping status: Never Used Substance Use Topics Alcohol use: Yes Alcohol/week: 7.0 - 10.0 standard drinks of alcohol Types: 7 - 10 Glasses of Wine (5oz) per week Comment: socially Drug use: No Review of Systems Constitutional: Negative for chills and fever. HENT: Positive for congestion, sinus pressure and sinus pain. Negative for ear pain and sore throat. Respiratory: Positive for cough. Negative for shortness of breath. Cardiovascular: Negative for chest pain. Gastrointestinal: Negative for diarrhea and vomiting. Objective BP 156/110 Pulse 71 Temp 36.6 C (97.9 F) Resp 16 Wt 65.9 kg (145 lb 4.5 oz) LMP 09/11/2020 (LMP Unknown) SpO2 97% BMI 26.15 kg/m Physical Exam Vitals and nursing note reviewed. Constitutional: General: She is not in acute distress. Appearance: Normal appearance. She is not toxic-appearing. HENT: Right Ear: Tympanic membrane and ear canal normal. Left Ear: Tympanic membrane and ear canal normal. Nose: Mucosal edema and congestion present. Mouth/Throat: Mouth: Mucous membranes are moist. Eyes: Conjunctiva/sclera: Conjunctivae normal. Cardiovascular: Rate and Rhythm: Normal rate and regular rhythm. Pulmonary: Effort: Pulmonary effort is normal. Breath sounds: Normal breath sounds. Skin: General: Skin is warm and dry. Neurological: Mental Status: She is alert. {ASSESSMENT/PLAN: 1. URI, acute - ICD9: 465.9, ICD10: J06.9 (primary diagnosis) - Discussed viral etiology and rationale for treatment. - Symptomatic treatment with prn analgesia - Supportive care with fluids and rest 2. Sinus congestion - ICD9: 478.19, ICD10: R09.81 -Suspect viral -Recommend Flonase nasal spray -Due to elevated blood pressure, discontinue any decongestants/DayQuil/NyQuil -Delayed prescription for antibiotics sent in to start in 2 days if symptoms are persistent or worsen. 3. Elevated blood pressure reading without diagnosis of hypertension - ICD9: 796.2, ICD10: R03.0 - Encouraged dietary sodium restriction/DASH diet - Recommended regular aerobic exercise. - Recommend home blood pressure monitoring, to bring results in on next visit - Goal of BP <130/80 -Patient will keep a blood pressure log and follow-up with PCP. Diagnosis and treatment plan were discussed and questions were answered to the patient's satisfaction. Pt acknowledged understanding of concepts and follow up plan. Specific signs and symptoms that would indicate the need for higher level of care were discussed in detail warranting prompt ER evaluation. MIKEY Rodríguez Differential Diagnoses - URI is more likely for the following reason(s): suggested by H&P - Pneumonia is less likely for the following reason(s): H&P not suggestive Disposition The patient was discharged. OTC Medications were advised: Flonase nasal spray Procedures documented in this encounter [facility] 07-23-2024 Telephone encounter Note Patient called stating that she would like a message sent once RX has been sent. Gaye Crawford RN [facility] 07-23-2024 Miscellaneous Notes Patient called stating that she would like a message sent once RX has been sent. Gaye Crawford RN Please review in AG's absence. Thank you. Requested Prescriptions Pending Prescriptions Disp Refills valACYclovir (VALTREX) 1 gram tablet 10 tablet 2 Sig: Take 1 tablet by mouth once daily for 5 days. Recent Office Visits - This Specialty 12/23/2023 Encounter for gynecological examination (general) (routine) without abnormal findings OB/Gynecology Jodie Garza APRN.SCHOOL CROSSING GUARD 07/27/2022 Herpes simplex vulvovaginitis OB/Gynecology Anamika Mckay APRN.[employer] CR[employer]ING GUARD 07/13/2022 Genital lesion, female OB/Gynecology Anamika Mckay APRN.AVERY Next visit in this department: Visit date not found Gaye Crawford RN documented in this encounter [facility] 07-23-2024 Telephone encounter Note Please review in AG's absence. Thank you. Requested Prescriptions Pending Prescriptions Disp Refills valACYclovir (VALTREX) 1 gram tablet 10 tablet 2 Sig: Take 1 tablet by mouth once daily for 5 days. Recent Office Visits - This Specialty 12/23/2023 Encounter for gynecological examination (general) (routine) without abnormal findings OB/Gynecology Jodie Garza APRN.SCHO[employer] CROSSING GUARD 07/27/2022 Herpes simplex vulvovaginitis OB/Gynecology Anamika Mckay APRN.SCHO[employer] CROSSING GUARD 07/13/2022 Genital lesion, female OB/Gynecology Anamika Mckay APRN.AVERY Next visit in this department: Visit date not found Gaye Crawford, PRATEEK [facility] 01-31-2024 Note Formatting of this n ote might be different from the original. January 31, 2024 PID: [id number] Juliann Elliott [facility] [place] [address] Dear Ms. Elliott, We are pleased to inform you that the results of your recent breast imaging exam on 01/31/2024 are normal. Breast tissue can be either dense or not dense. Dense tissue makes it harder to find breast cancer on a mammogram and also raises the risk of developing breast cancer. Your breast tissue is not dense. Talk to your healthcare provider about breast density, risks for breast cancer, and your individual situation. Early detection of cancer is very important. We also understand recommendations regarding breast cancer screening are controversial. Please discuss with your primary care provider which strategy is best for you and whether a mammogram is right for you. Your imaging studies and report will be kept on file at [facility] as part of your permanent medical record and are available for your continuing care. Thank you for allowing us to help in meeting your health care needs. Sincerely, Dr. Etienne Interpreting Radiologist [facility] (Normal over 40) [facility] 01-31-2024 Miscellaneous Notes January 31, 2024 PID: [id number] Juliann Elliott [address] [place] [address] Dear Ms. Elliott, We are pleased to inform you that the results of your recent breast imaging exam on 01/31/2024 are normal. Breast tissue can be either dense or not dense. Dense tissue makes it harder to find breast cancer on a mammogram and also raises the risk of developing breast cancer. Your breast tissue is not dense. Talk to your healthcare provider about breast density, risks for breast cancer, and your individual situation. Early detection of cancer is very important. We also understand recommendations regarding breast cancer screening are controversial. Please discuss with your primary care provider which strategy is best for you and whether a mammogram is right for you. Your imaging studies and report will be kept on file at [facility] as part of your permanent medical record and are available for your continuing care. Thank you for allowing us to help in meeting your health care needs. Sincerely, Dr. Etienne Interpreting Radiologist [facility] (Normal over 40) documented in this encounter [facility] 01-31-2024 History of Presen t illness Narrative Radiology Service Progress Note PATIENT NAME: Juliann Elliott DATE OF SERVICE: January 31, 2024 TIME: 8:03 AM PATIENT IDENTITY VERIFICATION COMPLETED USING TWO (2) IDENTIFIERS: Name and Date of confirmed by patient verbally. FALL SCREENING: Has the patient had 2 falls in the last year or 1 fall with injury or currently using an Ambulatory Assistive Device (Walker, Cane, Wheelchair, Crutches, etc.)? No PATIENT GENDER DATA: Female. status: : No status: NO. PATIENT RELEVANT IMPLANT DATA REVIEWED: Not Applicable PATIENT PRESENTS WITH AN IMPLANTABLE OR ATTACHED FEEDER CATCHER TOBACCO: No RADIOLOGY DEPARTMENT: Mammography PERIPHERAL IV DATA: Not applicable SIGNED BY: Richy Harrisono Muriel January 31, 2024 8:03 AM documented in this encounter [facility] 01-10-2024 Telephone encounter Note See pt's mychart refill request below and advise. Pt was last seen in the office on 12/23/23. Zayda Duffy LPN [facility] 01-10-2024 Miscellaneous Notes See pt's mychart refill request below and advise. Pt was last seen in the office on 12/23/23. Zayda Duffy LPN documented in this encounter [facility] 12-23-2023 History of Presen t illness Narrative Mat Worker offered: Patient declinesCatherine Sanderson is a 53 year old who presents for an annual gynecologic exam without complaints. Postmenopausal: Yes since 07/2021 HRT use: No. Last Pap: 12/23/2021 normal HPV: 12/18/2021 negative History of abnormal pap: Yes Last mammogram: 2022 normal History of abnormal mammogram: No Sexually active: Yes Pain with intercourse: No Postcoital bleeding: No OB History T3 L3 SAB0 IAB0 Ectopic0 Multiple0 Live Births3 Admissions Nurse History LMP: 09/11/2020 (LMP Unknown), Postmenopausal Age at Menarche: Age at First : Age at Menopause: Admissions Nurse History Comments: Sexual Activity: Yes; Male Contraception: Vasectomy PAST MEDICAL HISTORY Diagnosis Date ASCUS with positive high risk HPV cervical 10/24/2020 cervical arthritis 2009 cervical disc/bulging/arthritis Cervicalgia 11/10/2007 COVID-19 virus infection 06/14/2020 06/13/2020 Degeneration of cervical intervertebral disc 11/10/2007 Discotomy at C3-C4 Displacement 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 06/06/2008 Enlarged uterus 01/10/2014 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 Heavy menstrual bleeding 01/10/2014 Irregular menstrual cycle 06/11/2005 PCB (post coital bleeding) 01/10/2014 PAST SURGICAL HISTORY Procedure Laterality Date PAST SURGICAL HISTORY OF 08/16/2008 removal of cervical disc with bone graft, C3-C4 STRESS TEST 08/01/2017 stress echo: WNL TONSILLECTOMY PRIMARY/SECONDARY <AGE 12 Tonsillectomy FAMILY HISTORY Problem Relation Age of Onset None Mother other (pulmonary embolism) Mother Coronary Artery Disease Father 52 Hypertension Father Hypertension Brother Cerebral Embolism Maternal Grandmother Diabetes Maternal Grandfather Coronary Artery Disease Paternal Grandfather 40's Alzheimer's Disease No Family History Colon Cancer No Family History Prostate Cancer No Family History Breast Cancer No Family History Ovarian cancer No Family History Uterine Cancer No Family History Hyperlipidemia No Family History Kidney Disease No Family History Seizures No Family History Stroke No Family History Thyroid No Family History SOCIAL HISTORY Social History Tobacco Use Smoking status: Never Passive exposure: Never Smokeless tobacco: Never Vaping Use Vaping Use: Never used Substance Use Topics Alcohol use: Yes Alcohol/week: 7.0 - 10.0 standard drinks of alcohol Types: 7 - 10 Glasses of Wine (5oz) per week Comment: socially Drug use: No REVIEW OF SYSTEMS Abdomen: No abdominal pain, nausea, vomiting, diarrhea, or constipation. No bloating, early satiety, indigestion, or increased flatulence. Bladder: No dysuria, gross hematuria, urinary frequency, urinary urgency, or incontinence Breast: No breast lumps, nipple d/c, overlying skin changes, redness or skin retraction Allergies and current medication updated:Yes EXAM: Ht 5' 2.5 (1.59m) Wt 137 lb 6.4 oz (62.3kg) LMP 09/11/2020 BMI 24.71 kg/(m^2). GENERAL: pleasant, female in no apparent distress HEENT: Normocephalic, atraumatic, mucus membranes moist, and no lesions NECK: Supple, full range of motion, no adenopathy, and thyroid normal DERMATOLOGY: Normal, without lesions, non-icteric, and non-hirsute BREAST: soft, non-tender, symmetric, no dominant mass, normal nipple-areolar complex, no lymphadenopathy, and no nipple discharge CHEST: Normal inspiratory effort ABDOMEN: soft, non-tender, and no masses PELVIC: external genitalia normal, normal Bartholin's glands, urethra, [place]'s glands, no vulvar lesions, no cervical lesions, good vaginal support, physiologic discharge present, normal appearing perineal body and perianal region BIMANUAL: uterus normal size, shape and consistency, no adnexal masses, and non-tender RECTOVAGINAL: deferred. NEURO: alert and oriented x3,exam grossly non-focal EXTREMITIES: normal ASSESSMENT/PLAN: 1) Health maintenance: Pap/HPV up to date. Mammogram ordered Nutrition, exercise and routine health maintenance exams reviewed. Calcium/Vitamin D supplementation information provided. 2) Follow up one year or sooner as needed Jodie Garza APRN.CNP documented in this encounter [facility] 10-31-2023 Miscellaneous Notes Order filed.diego Garza APRN.CNP Order pended. Last seen for annual exam on 12/11/21. Upcoming exam on 12/23/23. Chaya Bravo RN Patient contacted us via my chart would like to schedule her yearly mammogram. Please enter order and forward to a genetic counselor. Joan Us documented in this encounter [facility] 10-28-2023 Miscellaneous Notes Patient called and notified of below. Patient voiced understanding Samara Fitzgerald RN Left message to call office. 10/28/2023 11:41 AM. Joan Garcia LPN All her mammograms have been ordered by gluing pressman in past. Also patient has not see Dr. Berman or Chilo since 2019 and is no longer a patient of ours. She cancelled multiple visits with us. We will no longer see patient. Dr. Berman is no longer opened to new patient's. FYI to Dr. Berman Patient called requesting to place an order for a mammogram due anytime after 01/11/2024 Please advise documented in this encounter [facility] 08-22-2023 Miscellaneous Notes Patient notified and voiced understanding. Chaya Bravo RN Rx sent. Thanks. Kirsten Claire MD Patient is going out of town and has to fly on . Patient states provider usually prescribes her medication when she has to fly. Patient aware provider is out of the office until tomorrow. Patient last seen in office on 07/27/22. Chaya Bravo RN documented in this encounter [facility] 08-22-2023 Miscellaneous Notes Pt notified of Teri's message, pt verbalizes understanding. Advised pt she needs to keep appointment with Teri. Pt verbalizes understanding. Ailyn Machuca LPN We haven't seen patient since May 2020 and technically is no longer a patient of Dr. Berman since it's been over 3 years.. This was last prescribed by her gluing pressman. Could request refill from them again otherwise will have to wait. Teri Newman PA-C Wellness appt has been made for patient for 09/12/23. Please see refill request for clonazepam below, for upcoming plan flight this . No call back needed to patient unless unable to fill request for clonazepam by Tuesday. Thelma Goncalves RN Before sending to provider. Need to speak to pt. Pt has not been seen since 2019. Left a message for pt to call the office back. Neisha Melton LPN Pt called to request medication below for flying. Patient has been identified by name and date of : Yes, Provider Dr. Berman Date 08/22/23 Time 8:34 am Patient phones for refill(s): Requested Prescriptions Pending Prescriptions Disp Refills clonazePAM (KLONOPIN) 0.5 mg tablet 4 tablet 0 Sig: Take 1 tablet by mouth two times a day as needed for anxiety. For flying. Date of last office visit in primary care: 06/13/2020 Date of next office visit in primary care: Visit date not found Please advise. Thank you. Neisha Melton LPN. documented in this encounter [facility] 01-10-2023 History of Presen t illness Narrative Radiology Service Progress Note PATIENT NAME: Juliann Elliott DATE OF SERVICE: January 10, 2023 TIME: 1:27 PM PATIENT IDENTITY VERIFICATION COMPLETED USING TWO (2) IDENTIFIERS: Name and Date of confirmed by patient verbally. FALL SCREENING: Has the patient had 2 falls in the last year or 1 fall with injury or currently using an Ambulatory Assistive Device (Walker, Cane, Wheelchair, Crutches, etc.)? No PATIENT GENDER DATA: Female. status: : No status: NO. PATIENT RELEVANT IMPLANT DATA REVIEWED: Not Applicable RADIOLOGY DEPARTMENT: Mammography PERIPHERAL IV DATA: Not applicable SIGNED BY: RT Kylee(R) January 10, 2023 1:27 PM documented in this encounter [facility] 08-02-2022 Procedure note [facility] 08-02-2022 Procedure note [facility] 07-27-2022 History of Presen t illness Narrative Juliann Elliott is a 52 year old female who presents for problem visit genital herpes follow-up HPI: Maria E here for genital HSV follow-up after diagnosis 2 weeks ago. Feels healed. OB History T3 L3 SAB0 IAB0 Ectopic0 Multiple0 Live Births3 Admissions Nurse History LMP: 09/11/2020 (LMP Unknown), Premenopausal Age at Menarche: Age at First : Age at Menopause: Admissions Nurse History Comments: Sexual Activity: Yes; Male Contraception: Vasectomy PAST MEDICAL HISTORY Diagnosis Date ASCUS with positive high risk HPV cervical 10/24/2020 cervical arthritis 2009 cervical disc/bulging/arthritis Cervicalgia 11/10/2007 COVID-19 virus infection 06/14/2020 06/13/2020 Degeneration of cervical intervertebral disc 11/10/2007 Discotomy at C3-C4 Displacement 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 06/06/2008 Enlarged uterus 01/10/2014 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 Heavy menstrual bleeding 01/10/2014 Irregular menstrual cycle 06/11/2005 PCB (post coital bleeding) 01/10/2014 PAST SURGICAL HISTORY Procedure Laterality Date PAST SURGICAL HISTORY OF 08/16/2008 removal of cervical disc with bone graft, C3-C4 STRESS TEST 08/01/2017 stress echo: WNL TONSILLECTOMY PRIMARY/SECONDARY <AGE 12 Tonsillectomy FAMILY HISTORY Problem Relation Age of Onset None Mother Coronary Artery Disease Father 52 Hypertension Father Hypertension Brother Cerebral Embolism Maternal Grandmother Diabetes Maternal Grandfather Coronary Artery Disease Paternal Grandfather 40's Alzheimer's Disease No Family History Colon Cancer No Family History Prostate Cancer No Family History Breast Cancer No Family History Ovarian cancer No Family History Uterine Cancer No Family History Hyperlipidemia No Family History Kidney Disease No Family History Seizures No Family History Stroke No Family History Thyroid No Family History Social History Tobacco Use Smoking status: Never Smokeless tobacco: Never Vaping Use Vaping Use: Never used Substance Use Topics Alcohol use: Yes Alcohol/week: 17.5 - 25.0 standard drinks Types: 7 - 10 Glasses of Wine (5oz) per week Comment: socially Drug use: No Current Outpatient Medications Medication Sig fexofenadine HCl (SONIA ALLERGY ORAL) Take by mouth once daily. clonazePAM (KLONOPIN) 0.5 mg tablet Take 1 tablet by mouth twice daily as needed for anxiety. For flying. APPLE CIDER VINEGAR ORAL Take by mouth. loratadine (CLARITIN) 10 mg tablet Take 10 mg by mouth once daily. MULTIVITAMIN ORAL Multivitamin preparation Multivitamin [Multivitamins] 1 TAB PO DAILY February 19, 2019 Active 02-19-2019 [facility] ([id number]) cholecalciferol, vitamin D3, (VITAMIN D3 ORAL) Take by mouth. (Patient not taking: Reported on 05/28/2022) No current facility-administered medications for this visit. Allergies As of Date: 07/27/2022 (No Known Allergies) Fully Assessed 07/27/2022 REVIEW OF SYSTEMS Allergies and current medication updated:Yes EXAM: BP 112/78 Wt 132 lb (59.9kg) LMP 09/11/2020 GENERAL: pleasant, female in no apparent distress CHEST: Normal inspiratory effort PELVIC: cervical, vulvar and mons lesions healing NEURO: alert and oriented x3,exam grossly non-focal ASSESSMENT/PLAN: 1. Herpes simplex vulvovaginitis - ICD9: 054.11, ICD10: A60.04 - Discussed HSV types, etiology, symptoms and progression of healing, triggers and transmission. Given written information - VALACYCLOVIR 1 GRAM TABLET- episodic treatment Follow- up as needed. Anamika Mckay APRN.AVERY I spent a total of 20 minutes on the date of the service which included preparing to see the patient, [id number] patient care, completing clinical documentation, obtaining and/or reviewing separately obtained history, performing a medically appropriate examination, counseling and educating the patient/family/caregiver, and ordering medications, tests, or procedures. documented in this encounter [facility] 04-26-2022 Miscellaneous Notes Contacted patient and scheduled consult with Brunilda on 05-28-2022 Meeta Garza Patient stated she did not have the prep nor was she on clear fluids for two days. Per Dr Mcmahan , patient MUST see Brunilda for a colonoscopy consult in office. Patient can not be scheduled anywhere other than [place] on a Tuesday and first available. Aroldo Bernard documented in this encounter [facility] 12-29-2021 Miscellaneous Notes Patient notified and voiced understanding. The following approved medications have been transmitted electronically. Signed Prescriptions Disp Refills clonazePAM (KLONOPIN) 0.5 mg tablet 4 tablet 0 Sig: Take 1 tablet by mouth twice daily as needed for anxiety. For flying. JUAN MANUEL Class: C-IV MAGNUS: No Authorizing Provider: JODIE GARZA Pharmacy Information Pharmacy Address Telephone [address] [facility] [address] [place] [address] Chaya Bravo RN Patient was given Rx for Klonopin on 12/11 and never picked up the prescription. Patient tried to shrimp picker the prescription today and was told by the pharmacy staff that she would have to call the office for a new Rx. Chaya Bravo RN documented in this encounter [facility] 12-11-2021 History of Presen t illness Narrative Maria E is a 51 year old who presents for an annual gynecologic exam without complaints. Postmenopausal: LMP Earl HRT use: No. Last Pap: 10/29/2020 abnormal, ASCUS HPV: 10/28/2020 positive History of abnormal pap: Yes Last mammogram: 2021 normal History of abnormal mammogram: No Sexually active: Yes OB History T3 L3 SAB0 IAB0 Ectopic0 Multiple0 Live Births3 Admissions Nurse History LMP: 09/11/2020 (LMP Unknown), Having periods Age at Menarche: Age at First : Age at Menopause: Admissions Nurse History Comments: Sexual Activity: Yes; Male Contraception: Vasectomy PAST MEDICAL HISTORY Diagnosis Date ASCUS with positive high risk HPV cervical 10/24/2020 cervical arthritis 2009 cervical disc/bulging/arthritis Cervicalgia 11/10/2007 COVID-19 virus infection 06/14/2020 06/13/2020 Degeneration of cervical intervertebral disc 11/10/2007 Discotomy at C3-C4 Displacement 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 06/06/2008 Enlarged uterus 01/10/2014 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 Heavy menstrual bleeding 01/10/2014 Irregular menstrual cycle 06/11/2005 PCB (post coital bleeding) 01/10/2014 PAST SURGICAL HISTORY Procedure Laterality Date PAST SURGICAL HISTORY OF 08/16/2008 removal of cervical disc with bone graft, C3-C4 STRESS TEST 08/01/2017 stress echo: WNL TONSILLECTOMY PRIMARY/SECONDARY <AGE 11 Tonsillectomy FAMILY HISTORY Problem Relation Age of Onset None Mother Coronary Artery Disease Father 52 Hypertension Father Hypertension Brother Cerebral Embolism Maternal Grandmother Diabetes Maternal Grandfather Coronary Artery Disease Paternal Grandfather 40's Alzheimer's Disease No Family History Colon Cancer No Family History Prostate Cancer No Family History Breast Cancer No Family History Ovarian cancer No Family History Uterine Cancer No Family History Hyperlipidemia No Family History Kidney Disease No Family History Seizures No Family History Stroke No Family History Thyroid No Family History SOCIAL HISTORY Social History Tobacco Use Smoking status: Never Smoker Smokeless tobacco: Never Used Vaping Use Vaping Use: Never used Substance Use Topics Alcohol use: Yes Alcohol/week: 17.5 - 25.0 standard drinks Types: 7 - 10 Glasses of Wine (5oz) per week Comment: socially Drug use: No REVIEW OF SYSTEMS Abdomen: No abdominal pain, nausea, vomiting, diarrhea, or constipation. No bloating, early satiety, indigestion, or increased flatulence. Bladder: No dysuria, gross hematuria, urinary frequency, urinary urgency, or incontinence Breast: No breast lumps, nipple d/c, overlying skin changes, redness or skin retraction Allergies and current medication updated:Yes EXAM: Ht 5' 3 (1.60m) Wt 134 lb 12.8 oz (61.1kg) LMP 09/11/2020 BMI 23.88 kg/(m^2). GENERAL: pleasant, female in no apparent distress HEENT: Normocephalic, atraumatic, mucus membranes moist and no lesions NECK: Supple, full range of motion, no adenopathy and thyroid normal DERMATOLOGY: Normal, without lesions, non-icteric and non-hirsute BREAST: soft, non-tender, symmetric, no dominant mass, normal nipple-areolar complex, no lymphadenopathy and no nipple discharge CHEST: Normal inspiratory effort ABDOMEN: soft, non-tender and no masses PELVIC: external genitalia normal, normal Bartholin's glands, urethra, [place]'s glands, no vulvar lesions, no cervical lesions, physiologic discharge present, normal appearing perineal body and perianal region BIMANUAL: uterus normal size, shape and consistency, no adnexal masses and non-tender RECTOVAGINAL: deferred. NEURO: alert and oriented x3,exam grossly non-focal EXTREMITIES: normal ASSESSMENT/PLAN: 1) Health maintenance: Pap done with HPV. Mammogram ordered Mammogram up to date Nutrition, exercise and routine health maintenance exams reviewed. Calcium/Vitamin D supplementation information provided. 2) Follow up one year or sooner as needed Jodie Garza APRN.CNP documented in this encounter [facility] 11-20-2021 Miscellaneous Notes November 20, 2021 PID: [id number] Juliann Elliott [facility] [place] [address] Dear Ms. Elliott, We are pleased to inform you that the results of your recent breast imaging exam on 11/20/2021 are normal. Early detection of cancer is very important. We also understand recommendations regarding breast cancer screening are controversial. Please discuss with your primary care provider which strategy is best for you and whether a mammogram is right for you. Your imaging studies and report will be kept on file at [facility] as part of your permanent medical record and are available for your continuing care. Thank you for allowing us to help in meeting your health care needs. Sincerely, Dr. Bernard Interpreting Radiologist [facility] (Normal over 40) documented in this encounter [facility] 11-20-2021 History of Presen t illness Narrative Radiology Service Progress Note PATIENT NAME: Juliann Elliott DATE OF SERVICE: November 20, 2021 TIME: 7:44 AM PATIENT IDENTITY VERIFICATION COMPLETED USING TWO (2) IDENTIFIERS: Name and Date of confirmed by patient verbally. FALL SCREENING: Has the patient had 2 falls in the last year or 1 fall with injury or currently using an Ambulatory Assistive Device (Walker, Cane, Wheelchair, Crutches, etc.)? No PATIENT GENDER DATA: Female. status: : No status: NO. PATIENT RELEVANT IMPLANT DATA REVIEWED: Not Applicable RADIOLOGY DEPARTMENT: Mammography PERIPHERAL IV DATA: Not applicable SIGNED BY: RT Kylee(R) November 20, 2021 7:44 AM documented in this encounter [facility] 11-09-2005 History of Past i llness Narrative Problem Noted Date Resolved Date Elderly multigravida with an tepartum condition or complication 11/09/2005 06/05/2012 Supervision of other normal 09/09/2005 06/05/2012 Routine gynecological examination 06/11/2005 06/05/2012 documented as of this encounter (statuses as of 11/21/2021) [facility] History of Past illness Narrative* Problem Noted Date Resolved Date Elderly multigravida with an tepartum condition or complication 11/09/2005 06/05/2012 Supervision of other normal 09/09/2005 06/05/2012 Routine gynecological examination 06/11/2005 06/05/2012 documented as of this encounter (statuses as of 11/24/2021) [address] History of Past illness Narrative* Problem Noted Date Resolved Date Elderly multigravida with an tepartum condition or complication 11/09/2005 06/05/2012 Supervision of other normal 09/09/2005 06/05/2012 Routine gynecological examination 06/11/2005 06/05/2012 documented as of this encounter (statuses as of 12/11/2021) [address] History of Past illness Narrative* Problem Noted Date Resolved Date Elderly multigravida with an tepartum condition or complication 11/09/2005 06/05/2012 Supervision of other normal 09/09/2005 06/05/2012 Routine gynecological examination 06/11/2005 06/05/2012 documented as of this encounter (statuses as of 12/29/2021) [address] History of Past illness Narrative* Problem Noted Date Resolved Date Elderly multigravida with an tepartum condition or complication 11/09/2005 06/05/2012 Supervision of other normal 09/09/2005 06/05/2012 Routine gynecological examination 06/11/2005 06/05/2012 documented as of this encounter (statuses as of 04/28/2022) [address] History of Past illness Narrative* Problem Noted Date Resolved Date Elderly multigravida with an tepartum condition or complication 11/09/2005 06/05/2012 Supervision of other normal 09/09/2005 06/05/2012 Routine gynecological examination 06/11/2005 06/05/2012 documented as of this encounter (statuses as of 07/27/2022) [address] History of Past illness Narrative* Problem Noted Date Diagnosed Date Resolved Date Elderly multigravida with an tepartum condition or complication 11/09/2005 06/05/2012 Supervision of other normal 09/09/2005 06/05/2012 Routine gynecological examination 06/11/2005 06/05/2012 documented as of this encounter (statuses as of 05/21/2023) [address] History of Past illness Narrative* Problem Noted Date Diagnosed Date Resolved Date Elderly multigravida with an tepartum condition or complication 11/09/2005 06/05/2012 Supervision of other normal 09/09/2005 06/05/2012 Routine gynecological examination 06/11/2005 06/05/2012 documented as of this encounter (statuses as of 08/22/2023) [address] History of Past illness Narrative* Problem Noted Date Diagnosed Date Resolved Date Elderly multigravida with an tepartum condition or complication 11/09/2005 06/05/2012 Supervision of other normal 09/09/2005 06/05/2012 Routine gynecological examination 06/11/2005 06/05/2012 documented as of this encounter (statuses as of 08/22/2023) [address] History of Past illness Narrative* Problem Noted Date Diagnosed Date Resolved Date Elderly multigravida with an tepartum condition or complication 11/09/2005 06/05/2012 Supervision of other normal 09/09/2005 06/05/2012 Routine gynecological examination 06/11/2005 06/05/2012 documented as of this encounter (statuses as of 10/28/2023) [address] History of Past illness Narrative* Problem Noted Date Diagnosed Date Resolved Date Elderly multigravida with an tepartum condition or complication 11/09/2005 06/05/2012 Supervision of other normal 09/09/2005 06/05/2012 Routine gynecological examination 06/11/2005 06/05/2012 documented as of this encounter (statuses as of 10/31/2023) [facility] note* Diagnosis Encounter for gynecological examination (general) (routine) without abnormal findings Encounter for screening mammogram for breast cancer documented in this encounter [facility] note* Diagnosis Encounter for gynecological examination (general) (routine) without abnormal findings- Primary Anxiety Anxiety state, unspecified Encounter for screening for human papillomavirus (HPV) Special screening examination for human papillomavirus (HPV) Pap smear for cervical cancer screening Screening for malignant neoplasm of the cervix Dense breast tissue Encounter for screening mammogram for malignant neoplasm of breast Other screening mammogram documented in this encounter [facility] note* Diagnosis Anxiety Anxiety state, unspecified Encounter for screening for COVID-19 documented in this encounter [facility] noteNo assessment information availableWProMed[facility] Work Phone: [facility] [place] [facility]* Diagnosis Herpes simplex vulvovaginitis- Primary [facility] [place] [facility]* Diagnosis Encounter for screening mammogram for malignant neoplasm of breast Other screening mammogram [facility] [place] [facility]* Diagnosis Anxiety Anxiety state, unspecified [facility] [place] [facility]* Diagnosis Anxiety Anxiety state, unspecified [facility] [facility] [place] [facility] Diagnosis Encounter for screening mammogram for malignant neoplasm of breast- Primary Other screening mammogram documented [facility] [place] [facility] Diagnosis Encounter for gynecological examination (general) (routine) without abnormal findings- Primary Encounter for screening mammogram for breast cancer Dense breast tissue documented [facility] this [facility] [place] [facility]* Diagnosis Anxiety Anxiety state, unspecified documented in this encounter [facility] [place] [facility]* Diagnosis Encounter for screening mammogram for malignant neoplasm of breast Other screening mammogram documented in this encounter [facility] [place] [facility]* Diagnosis Herpes simplex vulvovaginitis documented in this encounter [facility] [place] [facility]* Diagnosis URI, acute- Primary Acute upper respiratory infections of unspecified site Sinus congestion Other diseases of nasal cavity and sinuses Elevated blood pressure reading without diagnosis of hypertension documented in this encounter [facility] [place] [facility]* Diagnosis Well adult exam- Primary Routine general medical examination at a health care facility Fear of flying Other isolated or specific phobias Elevated BP without diagnosis of hypertension Displacement 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 Encounter for lipid screening for cardiovascular disease Screening for lipoid disorders Encounter for screening for diabetes mellitus Screening for diabetes mellitus Screening for depression Encounter for screening examination for other mental health and behavioral disorders Need for vaccination Need for prophylactic vaccination and inoculation against unspecified single disease documented in this encounter [facility] [place] [facility]* Diagnosis Hypertension, essential- Primary Unspecified essential hypertension documented in this encounter [facility] [place] [facility]* Diagnosis Essential (primary) hypertension- Primary Unspecified essential hypertension Encounter for screening for cardiovascular disorders Screening for other and unspecified cardiovascular conditions Family history of ischemic heart disease documented in this encounter [facility] [place] [facility]* Diagnosis Hyperlipidemia, mixed- Primary Mixed hyperlipidemia documented in this encounter [facility] [place] [facility]* Diagnosis Screening mammogram for breast cancer- Primary [facility]* Diagnosis Screening mammogram for breast cancer documented in this encounter [facility] Author Dr. Mcmahan [facility] August 02, 2022 12:03pm Note Date/Time August 02, 2022 1 2:03pm [facility] Medical Records Department [address] [place] [address] History & Physical Exam 08/02/22 1202 MR#: [id number] Acct: [id number] Name: JULIANN ELLIOTT Rep #:[id number] : 1970 52 From: uRdy Mcmahan MD PCP: Dr. Dany Berman MD Status:[facility] Location: [place] [address] History and Physical Date of Admission: 08/02/22 HISTORY AND PHYSICAL ? Juliann Diego Jordy 1970 ? REFERRING PHYSICIAN: Dany Berman MD ? CHIEF COMPLAINT: Consult (Colonoscopy consult) ? HPI: The patient is a 51 year old female referred for endoscopy. Juliann notes no colon complaints. Patient denies any change in bowel habits, weight changes, blood in stools, black tarry stools or abdominal pain. Denies family history of colon issues. ? The patient notes no upper GI complaints. ? Juliann has not undergone prior endoscopy. ? Patient denies chest pain, shortness of breath or recent hospitalizations. Denies problems with sedation in the past. ? ? PAST MEDICAL HISTORY PAST MEDICAL HISTORY Diagnosis Date ? ASCUS with positive high risk HPV cervical 10/24/2020 ? cervical arthritis 2008 ? cervical disc/bulging/arthritis ? Cervicalgia 11/10/2007 ? COVID-19 virus infection 06/14/2020 ? 06/13/2020 ? Degeneration of cervical intervertebral disc 11/10/2007 ? Discotomy at C3-C4 ? Displacement 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 06/06/2008 ? Enlarged uterus 01/10/2014 ? 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 Uses Klonopin as needed. ? Heavy menstrual bleeding 01/10/2014 ? Irregular menstrual cycle 06/11/2005 ? PCB (post coital bleeding) 01/10/2014 ? ? PAST SURGICAL HISTORY PAST SURGICAL HISTORY Procedure Laterality Date ? PAST SURGICAL HISTORY OF ? 08/16/2008 ? removal of cervical disc with bone graft, C3-C4 ? STRESS TEST ? 08/01/2017 ? stress echo: WNL ? TONSILLECTOMY PRIMARY/SECONDARY <AGE 12 ? ? ? Tonsillectomy ? ? ? CURRENT MEDICATIONS Current Outpatient Medications Medication Sig ? fexofenadine HCl (SONIA ALLERGY ORAL) Take by mouth once daily. ? clonazePAM (KLONOPIN) 0.5 mg tablet Take 1 tablet by mouth twice daily as needed for anxiety. For flying. ? APPLE CIDER VINEGAR ORAL Take by mouth. ? MULTIVITAMIN ORAL Multivitamin preparation Multivitamin [Multivitamins] 1 TAB PO DAILY February 19, 2019 Active 02-19-2019 [facility] (19894) ? cholecalciferol, vitamin D3, (VITAMIN D3 ORAL) Take by mouth. (Patient not taking: Reported on 05/28/2022) ? loratadine (CLARITIN) 10 mg tablet Take 10 mg by mouth once daily. ? No current facility-administered medications for this visit. ? ? ALLERGIES: Patient has no known allergies. ? PERSONAL HISTORY: SOCIAL HISTORY Social History ? Tobacco Use ? Smoking status: Never ? Smokeless tobacco: Never Vaping Use ? Vaping Use: Never used Substance Use Topics ? Alcohol use: Yes ? ? Alcohol/week: 17.5 - 25.0 standard drinks ? ? Types: 7 - 10 Glasses of Wine (5oz) per week ? ? Comment: socially ? Drug use: No ? ? FAMILY HISTORY: FAMILY HISTORY FAMILY HISTORY Problem Relation Age of Onset ? None Mother ? ? Coronary Artery Disease Father 52 ? Hypertension Father ? ? Hypertension Brother ? ? Cerebral Embolism Maternal Grandmother ? ? Diabetes Maternal Grandfather ? ? Coronary Artery Disease Paternal Grandfather ? ? 40's ? Alzheimer's Disease No Family History ? ? Colon Cancer No Family History ? ? Prostate Cancer No Family History ? ? Breast Cancer No Family History ? ? Ovarian cancer No Family History ? ? Uterine Cancer No Family History ? ? Hyperlipidemia No Family History ? ? Kidney Disease No Family History ? ? Seizures No Family History ? ? Stroke No Family History ? ? Thyroid No Family History ? ? ? REVIEW OF SYMPTOMS: The review of systems data was entered by the nurse and reviewed by me ? Nursing Notes: Becca Bernal RN 05/28/2022 1:24 PM Signed REVIEW OF SYSTEMS: General: The patient denies fatigue, denies weight loss, denies weight gain, denies feeling hot, and denies feelings of cold. Eyes: The patient denies glaucoma, denies eye injury/surgery, does not wear glasses or contacts. Ear/Nose/Throat: The patient denies allergies, denies hayfever, denies ear infections, and denies bloody noses. Cardiovascular: The patient denies chest pain, denies heart disease, denies high blood pressure,denies cardiac stent, denies prior heart attack, denies irregular heart beat, denies high cholesterol, denies poor circulation, denies heart failure, other cardiac issues, denies claudication, denies cold feet, denies peripheral arterial stent. Respiratory: The patient denies tuberculosis, denies pneumonia, denies frequent cough, denies pulmonary embolism, denies shortness of breath, and denies coughing up blood. Gastrointestinal: The patient denies difficulty swallowing, denies acid reflux, denies ulcers, denies vomiting, denies jaundice/hepatitis, denies gallbladder problems, denies black or tarry stools, denies hemorrhoids, denies bleeding from rectum, denies diverticulitis, denies constipation, denies diarrhea, denies loss of stool control, and denies hernias. Kidney/Bladder: The patient denies kidney stones, denies urine infections, and denies bloody urine. Skin: The patient denies a history of skin cancer, denies bleeding/changing moles, and denies a history of skin rash. Neurologic: The patient denies a history of epilepsy/convulsions, denies headaches, denies head/spinal injuries, and denies stroke/TIA. Psychiatric: The patient denies psychiatric medications, denies depression, and denies voices, denies substance abuse. Endocrine: The patient denies thyroid disorders, denies diabetes, and denies hormonal problems. Hematologic: The patient denies a history of bruising, denies bleeding, and denies anemia, denies blood clots. Infections: The patient denies a history of measles and mumps, denies rheumatic fever, and denies sexually transmitted diseases. Musculoskeletal: The patient denies back pain/injury, denies back problems, denies sciatica, denies knee/foot trouble, NOTES arthritis, or denies gout. ? ? When was patient's last Mammogram screening? 11/20/2021 ? Last Colonoscopy: None ? Becca Bernal RN I have confirmed and edited as necessary, the PFSH and ROS obtained by others. Brunilda Morales PA-C ? PHYSICAL EXAMINATION: ? General: The patient is 51 year old female, well nourished, well hydrated in no acute distress. The patient is oriented to time, place, and person. ? VITALS: Blood pressure 124/80, pulse 100, temperature 36.2 ?C (97.2 ?F), height 160 cm (5' 3), weight 61.4 kg (135 lb 6.4 oz), last menstrual period 09/11/2020, SpO2 99 %. Body mass index is 23.99 kg/m?. ? HEENT: Normal cephalic, ataumatic, pupils are equally round, sclera are anicteric, mucous membranes are moist, oropharynx is clear. Neck has no masses, asymmetry or lymphadenopathy. ? Respiratory: Clear to auscultation and percussion. Normal respiratory excursion and pattern. ? Cardiac: Examination is regular rate and rhythm. Normal S1/S2 ? Abdominal exam: Soft, nontender, with no palpable masses. No hepatosplenomegaly. No palpable hernias. ? Extremities: no clubbing, cyanosis or edema. No adenopathy. ? LABORATORY VALUES: As Noted ? RADIOLOGIC STUDIES: As Noted ? ? Assessment IMPRESSION: encounter for screening colonoscopy ? PLAN: I have reviewed my findings with the surgeon. Will plan for lower endoscopy. We discussed the risks and benefits of the planned endoscopy. I have informed the patient that complications can occur including failure to complete the endoscopy and perforation. The patient had the opportunity to ask questions concerning the planned endoscopy. My staff has also explained the procedure to the patient in understandable terms and has given the patient printed material concerning the procedure. The patient freely consents to surgery. ? The patient was offered a surgery/procedure at a [facility] facility. I have counseled the patient regarding the risk of exposure to and/or potential harm posed by the COVID-19 virus with having a surgery/procedure at this time versus the risk of? delaying the surgery/procedure. It is not possible to know either the risk of delaying the surgery or procedure or chance of getting an infection with perfect accuracy, but a joint decision was made between the patient and myself?to proceed at this time with endoscopy. ? ? I plan to use Golytely bowel preparation ? We will plan for Monitored Anesthetic Care. ? ? ? Diagnoses: (Z12.11) Encounter for screening for malignant neoplasm of colon (primary encounter diagnosis) ? Consultation requested by Dr. Berman for an opinion regarding screening colonoscopy. My final recommendations will be communicated back to the requesting physician by way of shared Medical record or letter to requesting physician via US mail. ? Brunilda Morales PA-C I have examined the patient and the H&P has been reviewed. There are no clinical changes since date of exam. 08/02/22 1203 <Electronically signed by Rudy Mcmahan MD> Cosigner Signature (if applicable): CC: Dr. Rudy Mcmahan MD; Dr. Dany Berman MD~ Signed [facility] Work Phone: Reason for referral (narrative)* Diagnostic Procedure Only (Routine) - Pending Review Specialty Diagnoses / Procedures Referred By Contac t Referred To Contact [facility] Diagnoses Encounter for screening mammogram for malignant neoplasm of breast Procedures DIEGO SCREENING W RANDY SCREENING DIGITAL BREAST TOMOSYNTHESIS BI SCREENING MAMMOGRAPHY BI 2-VIEW BREAST INC CAD [facility], NICOLE[employer] [address] [place] [address] [facility] [address] [place] [address] Referral ID Status Reason Start Date Expiration Date Visits Requested Visits Authorized [id number] Pending Review Auto-Generat ed Referral 12/11/2021 01/10/2023 1 1 [facility] for referral (narrative)* Diagnostic Procedure Only (Routine) - Closed Specialty Diagnoses / Procedures Referred By Contac t Referred To Contact [facility] Diagnoses Encounter for screening mammogram for malignant neoplasm of breast Procedures DIEGO SCREENING W RANDY SCREENING DIGITAL BREAST TOMOSYNTHESIS BI SCREENING MAMMOGRAPHY BI 2-VIEW BREAST INC CAD Jodie Garza, NICOLE.[employer] [address] [place] [address] [facility] [address] [place] [address] Referral ID Status Reason Start Date Expiration Date V isits Requested Visits Authorized [id number] Closed Auto-Generate d Referral 12/11/2021 01/10/2023 1 1 [facility] for referral (narrative)* Diagnostic Procedure Only (Routine) - Authorized Specialty Diagnoses / Procedures Referred By Contac t Referred To Contact [facility] Diagnoses Encounter for screening mammogram for malignant neoplasm of breast Procedures DIEGO SCREENING W RANDY SCREENING DIGITAL BREAST TOMOSYNTHESIS BI SCREENING MAMMOGRAPHY BI 2-VIEW BREAST INC CAD [facility] [address] [place] [address] [facility] [address] [place] [address] Referral ID Status Reason Start Date Expiration Date Visits Requested Visits Authorized [id number] Authorized Auto-Generat ed Referral 10/31/2023 11/26/2024 1 1 [facility] for referral (narrative)* Diagnostic Procedure Only (Routine) - Authorized Specialty Diagnoses / Procedures Referred By Contac t Referred To Contact [facility] Diagnoses Encounter for screening mammogram for breast cancer Dense breast tissue Procedures DIEGO SCREENING W RANDY SCREENING DIGITAL BREAST TOMOSYNTHESIS BI SCREENING MAMMOGRAPHY BI 2-VIEW BREAST INC CAD [place], SCREEN PRINT OPERATOR.[employer] CR[employer] GUARD [address] [place] [address] [facility] [address] [place] [address] Referral ID Status Reason Start Date Expiration Date Visits Requested Visits Authorized [id number] Authorized Auto-Generat ed Referral 12/23/2023 01/21/2025 1 1 T [facility] for referral (narrative)* Diagnostic Procedure Only (Routine) - Closed Specialty Diagnoses / Procedures Referred By Contac t Referred To Contact [facility] Diagnoses Encounter for screening mammogram for malignant neoplasm of breast Procedures DIEGO SCREENING W RANDY SCREENING DIGITAL BREAST TOMOSYNTHESIS BI SCREENING MAMMOGRAPHY BI 2-VIEW BREAST INC CAD [facility], SCREEN PRINT OPERATOR.[employer] [address] [place] [address] [facility] [address] [place] [address] Referral ID Status Reason Start Date Expiration Date V isits Requested Visits Authorized [id number] Closed Auto-Generate d Referral 10/31/2023 11/26/2024 1 1 [facility] for visit Narrative* Diagnostic Procedure Only (Routine) - Closed Specialty Diagnoses / Procedures Referred By Paul t Referred To Contact [facility] Diagnoses Encounter for screening mammogram for malignant neoplasm of breast Procedures DIEGO SCREENING W RANDY SCREENING DIGITAL BREAST TOMOSYNTHESIS BI SCREENING MAMMOGRAPHY BI 2-VIEW BREAST INC [facility] SCREEN PRINT OPERATOR.[employer] CR[employer] GUARD [address] [place] [address] [facility] [address] [place] [address] Referral ID Status Reason Start Date Expiration Date V isits Requested Visits Authorized [id number] Closed Auto-Generate d Referral 12/11/2021 01/10/2023 1 1 [facility] for visit Narrative* Diagnostic Procedure Only (Routine) - Closed Specialty Diagnoses / Procedures Referred By Paul t Referred To Contact [facility] Diagnoses Encounter for screening mammogram for malignant neoplasm of breast Procedures DIEGO SCREENING W RANDY SCREENING DIGITAL BREAST TOMOSYNTHESIS BI SCREENING MAMMOGRAPHY BI 2-VIEW BREAST INC [facility], SCREEN PRINT OPERATOR.[employer] CROSSING GUARD [address] [place] [address] [facility] [address] [place] [address] Referral ID Status Reason Start Date Expiration Date V isits Requested Visits Authorized [id number] Closed Auto-Generate d Referral 10/31/2023 11/26/2024 1 1 [facility] for visit Narrative* Diagnostic Procedure Only (Routine) - Closed Specialty Diagnoses / Procedures Referred By Contdimitris t Referred To Contact [facility] Diagnoses Screening mammogram for breast cancer Procedures DIEGO SCREENING W RANDY SCREENING DIGITAL BREAST TOMOSYNTHESIS BI SCREENING MAMMOGRAPHY BI 2-VIEW BREAST INC CAD Teri Newman PA-C [address] [place] [address] Phone: tel: fax: [facility] [address] [place] [address] Referral ID Status Reason Start Date Expiration Date V isits Requested Visits Authorized [id number] Closed Auto-Generate d Referral 02/13/2025 03/15/2026 1 1 [facility] Health Concerns Infection Onset Date Last Indicated Resolved Time COVID-19 Rule-Out 12/23/2021 12/23/2021 Family History No Family History Records Found Relationship Condition Age at Onset Recorded Date/T castillo father Coronary artery disease Unknown Hypertension Unknown Advance Directives No Advanced Directives Records Found Advance Directive Response Recorded Date/ Time Living Will No July 28 11:58am Power of Photographic Platemaker No July 28, 2022 11:58am Summary Purpose Additional Source Comments Source Comments (unrecognize d section and content) In the event this informatio n is protected by the Federal Confidentiality of Alcohol and Drug Abuse Patient Records regulations: The Federal rules restrict any use of the information to criminally investigate or prosecute any alcohol or drug abuse patient.[facility] the event this information is protected by the Federal Confidentiality of Alcohol and Drug Abuse Patient Records regulations: The Federal rules restrict any use of the information to criminally investigate or prosecute any alcohol or drug abuse patient.[facility] the event this information is protected by the Federal Confidentiality of Alcohol and Drug Abuse Patient Records regulations: The Federal rules restrict any use of the information to criminally investigate or prosecute any alcohol or drug abuse patient.[facility] the event this information is protected by the Federal Confidentiality of Alcohol and Drug Abuse Patient Records regulations: The Federal rules restrict any use of the information to criminally investigate or prosecute any alcohol or drug abuse patient.[facility] the event this information is protected by the Federal Confidentiality of Alcohol and Drug Abuse Patient Records regulations: The Federal rules restrict any use of the information to criminally investigate or prosecute any alcohol or drug abuse patient.[facility] Center[facility] the event this information is protected by the Federal Confidentiality of Alcohol and Drug Abuse Patient Records regulations: The Federal rules restrict any use of the information to criminally investigate or prosecute any alcohol or drug abuse patient.[facility] Center[facility] the event this information is protected by the Federal Confidentiality of Alcohol and Drug Abuse Patient Records regulations: The Federal rules restrict any use of the information to criminally investigate or prosecute any alcohol or drug abuse patient.[facility] Center[facility] the event this information is protected by the Federal Confidentiality of Alcohol and Drug Abuse Patient Records regulations: The Federal rules restrict any use of the information to criminally investigate or prosecute any alcohol or drug abuse patient.[facility] Center[facility] the event this information is protected by the Federal Confidentiality of Alcohol and Drug Abuse Patient Records regulations: The Federal rules restrict any use of the information to criminally investigate or prosecute any alcohol or drug abuse patient.[facility] Center[facility] the event this information is protected by the Federal Confidentiality of Alcohol and Drug Abuse Patient Records regulations: The Federal rules restrict any use of the information to criminally investigate or prosecute any alcohol or drug abuse patient.[facility] Center[facility] the event this information is protected by the Federal Confidentiality of Alcohol and Drug Abuse Patient Records regulations: The Federal rules restrict any use of the information to criminally investigate or prosecute any alcohol or drug abuse patient.[facility] Center[facility] the event this information is protected by the Federal Confidentiality of Alcohol and Drug Abuse Patient Records regulations: The Federal rules restrict any use of the information to criminally investigate or prosecute any alcohol or drug abuse patient.[facility] Center[facility] the event this information is protected by the Federal Confidentiality of Alcohol and Drug Abuse Patient Records regulations: The Federal rules restrict any use of the information to criminally investigate or prosecute any alcohol or drug abuse patient.[facility] Center[facility] the event this information is protected by the Federal Confidentiality of Alcohol and Drug Abuse Patient Records regulations: The Federal rules restrict any use of the information to criminally investigate or prosecute any alcohol or drug abuse patient.[facility] Center[facility] the event this information is protected by the Federal Confidentiality of Alcohol and Drug Abuse Patient Records regulations: The Federal rules restrict any use of the information to criminally investigate or prosecute any alcohol or drug abuse patient.[facility] Center[facility] the event this information is protected by the Federal Confidentiality of Alcohol and Drug Abuse Patient Records regulations: The Federal rules restrict any use of the information to criminally investigate or prosecute any alcohol or drug abuse patient.[facility] CenterIn the event this information is protected by the Federal Confidentiality of Alcohol and Drug Abuse Patient Records regulations: The Federal rules restrict any use of the information to criminally investigate or prosecute any alcohol or drug abuse patient.[facility] CenterIn the event this information is protected by the Federal Confidentiality of Alcohol and Drug Abuse Patient Records regulations: The Federal rules restrict any use of the information to criminally investigate or prosecute any alcohol or drug abuse patient.[facility] CenterIn the event this information is protected by the Federal Confidentiality of Alcohol and Drug Abuse Patient Records regulations: The Federal rules restrict any use of the information to criminally investigate or prosecute any alcohol or drug abuse patient.[facility] Center[facility] the event this information is protected by the Federal Confidentiality of Alcohol and Drug Abuse Patient Records regulations: The Federal rules restrict any use of the information to criminally investigate or prosecute any alcohol or drug abuse patient.[facility] Center[facility] the event this information is protected by the Federal Confidentiality of Alcohol and Drug Abuse Patient Records regulations: The Federal rules restrict any use of the information to criminally investigate or prosecute any alcohol or drug abuse patient.[facility] Center[facility] the event this information is protected by the Federal Confidentiality of Alcohol and Drug Abuse Patient Records regulations: The Federal rules restrict any use of the information to criminally investigate or prosecute any alcohol or drug abuse patient.[facility] CenterIn the event this information is protected by the Federal Confidentiality of Alcohol and Drug Abuse Patient Records regulations: The Federal rules restrict any use of the information to criminally investigate or prosecute any alcohol or drug abuse patient.[facility] CenterIn the event this information is protected by the Federal Confidentiality of Alcohol and Drug Abuse Patient Records regulations: The Federal rules restrict any use of the information to criminally investigate or prosecute any alcohol or drug abuse patient.[facility] Care Teams (unrecognized sec tion and content) 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 Relationship Specialty Start Date End Date Dany Berman MD [address] [place], [place] [id number] PCP - General Family Practice 04/05/17 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 Relationship Specialty Start Date End Date Dany Berman MD [address] [place], [place] [id number] PCP - General Family Practice 04/05/17 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 Relationship Specialty Start Date End Date Dany Berman MD [address] [facility] [place] [address] PCP - General Family Practice 04/05/17 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 Dany Berman MD Family Provider Active Dr. Dany Berman MD Primary Care Provider Active Team Status: Inactive Member Role Status Dates Dr. Dany Berman MD Primary Care Provider Active Dr. 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 Relationship Specialty Start Date End Date Dany Berman MD [address] [place] [address] PCP - General Family Medicine 11/16/24 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 Relationship Specialty Start Date End Date Dany Berman MD [address] [place] [address] PCP - General Family Medicine 11/16/24 Beatrice Wright APRN.[employer] [address] [place] [address] [employer] [facility] 12/17/24 Teri Newman PA-C [address] [place] [address] [employer] [facility] 12/17/24 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 Relationship Specialty Start Date End Date Dany Berman MD [address] [place] [address] PCP - General Family Medicine 11/16/24 Beatrice Wright APRN.[employer]ARD [address] [place] [address] [employer] [facility] 12/17/24 Teri Newamn PA-C [address] [place] [address] [employer] [facility] 12/17/24 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 Relationship Specialty Start Date End Date Dany Berman MD [address] [place] [address] PCP - General Family Medicine 11/16/24 Beatrice Wright APRN.[employer]ARD [address] [place] [address] [employer] [facility] 12/17/24 Teri Newman PA-C [address] [place] [address] [facility] 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 Relationship Specialty Start Date End Date Dany Berman MD [address] [place] [address] PCP - General Family Medicine 11/16/24 Beatrice Wright APRN.[employer]ARD [address] [place] [address] [employer] [facility] 12/17/24 Teri Newman PA-C [address] [place] [address] [facility] 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 Relationship Specialty Start Date End Date Dany Berman MD [address] [place] [address] PCP - General Family Medicine 11/16/24 Beatrice Wright APRN.[employer]ARD [address] [place] [address] [employer] [facility] 12/17/24 Teri Newman PA-C [address] [place] [address] [employer] [facility] 12/17/24 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 Relationship Specialty Start Date End Date Dany Beramn MD [address] [place] [address] PCP - General Family Medicine 11/16/24 Beatrice Wright APRN.[employer]ARD [address] [place], [place] [address] [facility] 12/17/24 Teri Newman PA-C [address] [place], [place] [address] [facility] 12/17/24 Reason for Visit (unrecogniz ed section and content) Reason Comments Yearly Exam Reason Onset Date Comments Refill Request 12/29/2021 Reason Comments Outpatient Colonoscopy Reason Comments Follow Up Discuss lab work Reason Onset Date Comments Refill Request 08/22/2023 Reason Comments Anxiety Reason Comments Orders mammogram Reason Comments Orders Reason Onset Date Comments Refill Request 01/10/2024 Reason Comments Sinus Problem Reason Comments Appointment Reason Comments Physical Reason Comments Follow Up Blood pressure Goals (unrecognized section and content) Goals may be documented in a n alternate section INFORMATION SOURCE (unrecogn ized section and content) DATE CREATED AUTHOR 02/24/2025 [facility] DATE CREATED AUTHOR AUTHOR'S ORGANIZ ATION 02/27/2025 [facility] FOR RECORDS PERTAINING TO PATIENTS WHO ARE OR HAVE BEEN ENROLLED IN A CHEMICAL DEPENDENCY/SUBSTANCEABUSE PROGRAM, SOME INFORMATION MAY BE OMITTED. This clinical summary was aggregated from multiple sources. Caution should be exercised in using it in the provision of clinical care. This summary normalizes information from multiple sources, and as a consequence, information in this document may materially change the coding, format and clinical context of patient data. In addition, data may be omitted in some cases. CLINICAL DECISIONS SHOULD BE BASED ON THE PRIMARY CLINICAL RECORDS. [employer] [facility]. provides no warranty or guarantee of the accuracy or completeness of information in this document.
--- NOTE | 2025-03-01 18:17 | CA.SCORE ---
Calcium Scoring Date of Study:: 03/01/25 Indications Indications: Family history Coronary Calcium Scoring: High-resolution Computed Tomographic imaging of the chest was performed on [03/01/2025], with particular attention paid to the coronary arteries. Images from the examination were analyzed for the presence and extent of coronary artery calcification , using coronary calcium quantification software. The patient tolerated the procedure well and there were no complications. The results of the coronary calcification analysis are provided below. Findings Coronary Artery Left Main (LM): 0 Left Anterior Descending (LAD): 0 Left Circumflex (LCX): 0 Right Coronary Artery (RCA): 0 Total Agatston Score: 0 Percentile Rankinth percentile Calcium Scoring Interpretation: Different methods to categorize the overall amount of coronary plaque. Overall amount CAC SIS Visual of coronary plaque P1 Mild -100 <2 1-2 vessels with mild amount of plaque P2 Moderate 101-300 3-4 1-2 vessels with moderate amount, 3 vessels with mild amount of plaque P3 Severe 301-999 5-7 3 vessels with moderate amount, 1 vessel with severe amount of plaque P4 Extensive >1000 >8 2-3 vessels with severe amount of plaque Conclusion: No atherosclerotic plaquing noted.
== END 2025-03-01 23:59 | disposition home or self-care (01) ==
PROVIDERS: PCP Family Medicine; Referring Provider Physician Assistant; Visit Provider Physician Assistant
DX: Z13.6 Encounter for screening for cardiovascular disorders (principal); R93.89 Abnormal findings on diagnostic imaging of other specified body structures
CPT/HCPCS: 75571; 76380